=== PATIENT | female | born 1945 | race Caucasian/White ===

== ENCOUNTER → 2017-09-10 14:07 | Outpatient (POV) | payer MEDICARE, SELFPAY | DX: Z00.00 Encounter for general adult medical examination without abnormal findings (principal) ==

== ENCOUNTER → 2017-09-12 14:19 | Outpatient (CLI) | payer MEDICARE, SELFPAY ==
--- NOTE | 2017-09-12 14:28 | XR_ITS ---
XR chest 2V HISTORY: ITS.REASON: COUGH ORDERING PHYSICIAN: Sid Rodríguez MD PATIENT AGE: 72 years COMPARISON: None available FINDINGS: The cardiomediastinal silhouette and pulmonary vascularity are within normal limits. There is increased density in the region of the lingula best detected on the lateral view consistent with an area of pneumonia.. This borders the major fissure. There are degenerative changes of the thoracic spine with mild kyphosis. Postsurgical changes lumbar spine.. IMPRESSION: Patchy area of pneumonia within the lingula
== END ==
PROVIDERS: PCP Family Medicine; Visit Provider Family Medicine
DX: R05 Cough (principal)
CPT/HCPCS: 71046

== ENCOUNTER 2017-09-20 16:15 | Emergency (ER) | payer MEDICARE, SELFPAY ==
[2017-09-20 16:30] VITALS: BP 122/59; PULSE 94; RESP 18; TEMP 36.9; O2SAT 97; BMI 31.3
--- NOTE | 2017-09-20 17:35 | HMH.EDFALL ---
ED Disposition Clinical Impression: Scalp laceration Qualifiers: Encounter type: initial encounter Qualified Code(s): S01.01XA - Laceration without foreign body of scalp, initial encounter Disposition: Home, Self-Care Condition on Discharge: Fair Instructions: How to Prevent Falls Additional Instructions: take a shower tonight to get blood out of hair and then keep stitches dry for next 2 days. Stitches should fall out on their own Referrals: Sid Rodríguez MD [Primary Care Provider] - - Critical Care Critical Care Time: No Attestation: On , the high probability of a clinically significant, sudden or life threatening deterioration of the following system(s) required my full and direct attention, intervention and personal management. The time I documented below is in addition to time spent performing reported procedures but includes the following listed in this critical care notation. Medical Decision Making - Medical Records Medical records reviewed: Yes: I reviewed the patient's medical records. Vital Signs: 09/20/17 16:30 Temperature 98.4 F Temperature Source Oral Pulse Rate [Right Radial] 94 H Respiratory Rate 18 Blood Pressure [Right Arm] 122/59 Blood Pressure Mean [Right Arm] 80 Blood Pressure Source [Right Arm] Automatic Cuff Blood Pressure Position [Right Arm] Sitting 02 Sat by Pulse Oximetry 97 Oxygen Delivery Method Room Air Orders (Tests/Meds): ORDERS Category Date Time Status CT Request head Stat Cat Scan 09/20/17 16:[address] cervical spine wo con Stat Cat Scan 09/20/17 16:[address] head/brain wo con Routine Cat Scan 09/20/17 16:55 Ordered - Judah Inquiry Pt receiving controlled substance: No Judah was queried for this patient: No Fall HPI - General Chief Complaint: Fall Stated Complaint: AO Fell Lac to Back Right Head Mode of Arrival: Ambulatory Source of Information: Patient Limitations: No Limitations Description of Symptoms (Recalled from ER Triage Doc. by RN): FELL BACKWARDS INTO KITCHEN COUNTER - History of Present Illness HPI Narrative: Pt fell at home around 3PM and hit her head on the kitchen. No loc and no continuing pain but does have a small laceration on occipital area about 1 cm in length complaint: fall Onset (ago): hour(s) Fall from: standing Fall witnessed: no - Related Data Allergies Allergy/AdvReac Type Severity Reaction Status Date / Time dexamethasone [From DECADRON] Allergy Severe S-SWELLS-OR Unverified 08/05/17 15:18 AL/THROAT bacitracin Allergy Unknown I-RASH Unverified 08/05/17 15:18 [From Neosporin ([id number])] neomycin Allergy Unknown I-RASH Unverified 08/05/17 15:18 [From Neosporin ([id number])] Penicillins Allergy Unknown I-RASH Unverified 08/05/17 15:18 polymyxin B Allergy Unknown I-RASH Unverified 08/05/17 15:18 [From Neosporin ([id number])] [facility] History I have reviewed the patient's past medical history: Yes Medical History: Denies:: Cancer, Diabetes Mellitus Type 1, Diabetes Mellitus Type 2, Internal Pacemaker, MRSA Laterality Cases: Right: Arthroscopy Shoulder, Bilateral: Other Other Surgeries: No: Pacemaker Amputation: No - *Social History Smoking Status: Light tobacco smoker Tobacco Type: cigarettes Alcohol Intake: current Alcohol Intake Frequency:: a few times a month Substance Use Type: prescription drug Last Used Substance: hours (ago) - Psychiatric History Expresses thoughts of harming self/others: None Suicide Plan Description: No Plan ROS Obtained: Yes All systems reviewed & no additional complaints Physical Exam - General General appearance: alert - Head Head exam: normocephalic, normal inspection, other (small 1 cm laceration on occipital area on right side) - Eye Eye exam: Present: normal appearance, PERRL, EOMI - ENT ENT exam: Present: normal exam, normal oropharynx, mucous membranes moist, TM's normal bilaterally, normal
--- NOTE | 2017-09-20 17:38 | ED_ITS ---
ED Disposition Clinical Impression: Scalp laceration Qualifiers: Encounter type: initial encounter Qualified Code(s): S01.01XA - Laceration without foreign body of scalp, initial encounter Disposition: Home, Self-Care Condition on Discharge: Fair Instructions: How to Prevent Falls Additional Instructions: take a shower tonight to get blood out of hair and then keep stitches dry for next 2 days. Stitches should fall out on their own Referrals: Sid Rodríguez MD [Primary Care Provider] - - Critical Care Critical Care Time: No Attestation: On , the high probability of a clinically significant, sudden or life threatening deterioration of the following system(s) required my full and direct attention, intervention and personal management. The time I documented below is in addition to time spent performing reported procedures but includes the following listed in this critical care notation. Medical Decision Making - Medical Records Medical records reviewed: Yes: I reviewed the patient's medical records. Vital Signs: 09/20/17 16:30 Temperature 98.4 F Temperature Source Oral Pulse Rate [Right Radial] 94 H Respiratory Rate 18 Blood Pressure [Right Arm] 122/59 Blood Pressure Mean [Right Arm] 80 Blood Pressure Source [Right Arm] Automatic Cuff Blood Pressure Position [Right Arm] Sitting 02 Sat by Pulse Oximetry 97 Oxygen Delivery Method Room Air Orders (Tests/Meds): ORDERS Category Date Time Status CT Request head Stat Cat Scan 09/20/17 16:[address] cervical spine wo con Stat Cat Scan 09/20/17 16:[address] head/brain wo con Routine Cat Scan 09/20/17 16:55 Ordered - Judah Inquiry Pt receiving controlled substance: No Judah was queried for this patient: No Fall HPI - General Chief Complaint: Fall Stated Complaint: AO Fell Lac to Back Right Head Mode of Arrival: Ambulatory Source of Information: Patient Limitations: No Limitations Description of Symptoms (Recalled from ER Triage Doc. by RN): FELL BACKWARDS INTO KITCHEN COUNTER - History of Present Illness HPI Narrative: Pt fell at home around 3PM and hit her head on the kitchen. No loc and no continuing pain but does have a small laceration on occipital area about 1 cm in length complaint: fall Onset (ago): hour(s) Fall from: standing Fall witnessed: no - Related Data Allergies Allergy/AdvReac Type Severity Reaction Status Date / Time dexamethasone [From DECADRON] Allergy Severe S-SWELLS-OR Unverified 08/05/17 15: 18 AL/THROAT bacitracin Allergy Unknown I-RASH Unverified 08/05/17 15:18 [From Neosporin ([id number])] neomycin Allergy Unknown I-RASH Unverified 08/05/17 15:18 [From Neosporin ([id number])] Penicillins Allergy Unknown I-RASH Unverified 08/05/17 15:18 polymyxin B Allergy Unknown I-RASH Unverified 08/05/17 15:18 [From Neosporin ([id number])] [facility] History I have reviewed the patient's past medical history: Yes Medical History: Denies:: Cancer, Diabetes Mellitus Type 1, Diabetes Mellitus Type 2, Internal Pacemaker, MRSA Laterality Cases: Right: Arthroscopy Shoulder, Bilateral: Other Other Surgeries: No: Pacemaker Amputation: No - *Social History Smoking Status: Light tobacco smoker
[2017-09-20 17:53] VITALS: BP 142/64; PULSE 65; RESP 16; TEMP 36.9; O2SAT 98
== END 2017-09-20 17:54 | disposition home or self-care (01) ==
PROVIDERS: Emergency Provider General Practice; PCP Family Medicine
DX: S01.01XA Laceration without foreign body of scalp, initial encounter (principal); W17.89XA Other fall from one level to another, initial encounter; Y92.000 Kitchen of unspecified non-institutional (private) residence as the place of occurrence of the external cause
CPT/HCPCS: 99281

== ENCOUNTER → 2017-09-29 11:24 | Outpatient (CLI) | payer MEDICARE, SELFPAY ==
--- NOTE | 2017-09-29 11:40 | XR_ITS ---
XR chest 2V HISTORY: ITS.REASON: FU PNEUMONIA ORDERING PHYSICIAN: Sid Rodríguez MD PATIENT AGE: 72 years COMPARISON: 09/12/2017 FINDINGS: The cardiomediastinal silhouette and pulmonary vascularity are within normal limits. Patchy infiltrate once again noted in the lingula has shown some improvement. The remaining lungs are clear. Degenerative change thoracic spine. IMPRESSION: Improving lingular pneumonia
== END ==
PROVIDERS: PCP Family Medicine; Visit Provider Family Medicine
DX: Z87.01 Personal history of pneumonia (recurrent) (principal)
CPT/HCPCS: 71046

== ENCOUNTER → 2017-10-14 16:19 | Outpatient (REF) | payer MEDICARE, SELFPAY | LOC: LAB 16:19 | PROVIDERS: Visit Provider Podiatrist | DX: B35.1 Tinea unguium (principal) | CPT/HCPCS: 87220 ==

== ENCOUNTER → 2017-12-01 13:35 | Outpatient (POV) | payer MEDICARE, SELFPAY | PROVIDERS: Visit Provider Physician Assistant | DX: Z00.00 Encounter for general adult medical examination without abnormal findings (principal) ==

== ENCOUNTER → 2017-12-24 13:48 | Outpatient (POV) | payer MEDICARE, SELFPAY | PROVIDERS: PCP Family Medicine | DX: Z00.00 Encounter for general adult medical examination without abnormal findings (principal) ==

== ENCOUNTER → 2017-12-24 15:14 | Outpatient (CLI) | payer MEDICARE, SELFPAY ==
--- NOTE | 2017-12-24 15:18 | CT_ITS ---
CT lung screening EXAM: CT LUNG LOW DOSE WO CONTRAST COMPARISON: 08/01/2016 HISTORY: ITS.REASON: NICTOINE DEPENDENCE ORDERING PHYSICIAN: King Del Toro MD PATIENT AGE: 72 years TECHNIQUE: The exam was performed on a GE Light Speed [address] scanner using 2.90 mGy CTDI. A low dose helical CT CHEST was performed on a multi-detector scanner. All CT scans at the facility use one or more dose reduction, viz: automated exposure control; ma/kV adjustment per patient size (including targeted exams where dose is matched to indication; i.e. head); or iterative reconstruction technique. The LDCT was performed in a facility that meets the criteria for the screening program. Data regarding this exam was submitted to ACR which is an approved registry. The order for this exam indicates that it came as a result of a lung cancer screening counseling shard decision-making visit that included all the elements required of such a visit including smoking cessation. The radiologist interpreting this exam meets the CMS criteria for the LDCT lung cancer screening program. The exam is reported using the Lung-RADS classification scale and reported to the ACR registry. NOTE: This study was performed for the specific purposes of lung cancer screening and is not an alternative to diagnostic chest CT. RADIATION DOSE: CTDI vol(CT dose Index-volume) = 2.90mG DLP (Dose Length Product) = 96.27 mGcm FINDINGS: There are few calcified granulomas present. No suspicious or indeterminate nodules evident. LUNG PARENCHYMA Emphysema: Mild centrilobular emphysematous changes Airways disease: Hyperinflation with attenuation of peripheral pulmonary vessels consistent with obstructive chronic bronchitis Fibrosis: Minimal scattered fibrotic change in the lung bases OTHER ANATOMIC REGIONS Lymph Nodes: No enlarged lymph nodes evident. Scattered small nodes are present in the mediastinum and nicola Pleura: Unremarkable Cardiac: Unremarkable OTHER FINDINGS: No other pertinent findings evident IMPRESSION: 1. Lung RADS Category: 2 benign 2. Other findings: Obstructive chronic bronchitis with mild emphysematous change RECOMMENDATIONS: 99-mahdi-QIID screening
== END ==
PROVIDERS: PCP Family Medicine; Visit Provider Internal Medicine
DX: Z87.891 Personal history of nicotine dependence (principal); Z12.2 Encounter for screening for malignant neoplasm of respiratory organs

== ENCOUNTER → 2017-12-30 14:38 | Outpatient (POV) | payer MEDICARE, SELFPAY | PROVIDERS: PCP Family Medicine; Visit Provider Internal Medicine | DX: Z00.00 Encounter for general adult medical examination without abnormal findings (principal) ==

== ENCOUNTER → 2018-01-05 13:31 | Outpatient (POV) | payer MEDICARE, SELFPAY | PROVIDERS: PCP Family Medicine; Visit Provider Physician Assistant | DX: Z00.00 Encounter for general adult medical examination without abnormal findings (principal) ==

== ENCOUNTER → 2018-02-27 09:15 | Outpatient (CLI) | payer MEDICARE, SELFPAY ==
--- NOTE | 2018-02-27 09:17 | MM_ITS ---
MM Dig screening mamm BI w/CAD CAD Screening COMPARISON: Digital mammograms 02/13/2016 and additional views left breast 02/27/2016 INDICATION: There is no personal or family history of breast cancer TECHNIQUE: Standard CC and MLO images were obtained. R2 CAD reviewed. FINDINGS: Moderate scattered fiber glandular densities are seen throughout both breasts slightly asymmetrically increased fibroglandular densities upper outer quadrant right breast and this was noted previously as well. There are few benign-appearing calcination is in each breast. There is a mole marker each breast. There are 2 stable tiny nodular densities near the axilla tail right breast likely a low-lying nodes. There is no suspicious lesion and no suspicious microcalcifications. IMPRESSION: Fibrofatty parenchyma with no suspicious lesion seen BI-RADS Category: 2 Benign Finding(s) RECOMMENDED FOLLOW-UP: 1YR - 1 YEAR FOLLOW-UP (A letter has been sent to the patient regarding results of the study.)
== END ==
PROVIDERS: PCP Family Medicine; Visit Provider Family Medicine
DX: Z12.31 Encounter for screening mammogram for malignant neoplasm of breast (principal)
CPT/HCPCS: 77067

== ENCOUNTER → 2018-04-29 13:16 | Outpatient (POV) | payer MEDICARE, SELFPAY | PROVIDERS: PCP Family Medicine | DX: Z00.00 Encounter for general adult medical examination without abnormal findings (principal) ==

== ENCOUNTER → 2018-05-22 14:19 | Outpatient (CLI) | payer MEDICARE, SELFPAY ==
--- NOTE | 2018-05-22 14:41 | XR_ITS ---
XR chest 2V HISTORY: ITS.REASON: COUGH ORDERING PHYSICIAN: Sid Rodríguez MD PATIENT AGE: 72 years COMPARISON: 09/29/2017 FINDINGS: The cardiomediastinal silhouette and pulmonary vascularity are within normal limits. The lungs are clear without infiltrates, suspicious nodules, or pleural effusions. Postsurgical changes present involving the lower thoracic and upper lumbar spine with interpedicular screws at T11 T12 L1 and L2 with prior to plasty at T11. IMPRESSION: No acute cardiac or pulmonary findings
== END ==
PROVIDERS: PCP Family Medicine; Visit Provider Family Medicine
DX: R05 Cough (principal)
CPT/HCPCS: 71046

== ENCOUNTER → 2018-05-28 15:33 | Outpatient (CLI) | payer MEDICARE, SELFPAY ==
--- NOTE | 2018-05-28 15:38 | XR_ITS ---
XR clavicle RT Ordering Physician: Deana Han MD Patient Age: 72 years: Female HISTORY: ITS.REASON: CONTUSION OF RIGHT CLAVICLE Pain at midshaft right clavicle TECHNIQUE: Right clavicle AP and angled 15 degrees angled view. COMPARISON :May 22, 2018 chest x-ray Right shoulder from 10/28/2013 FINDINGS The right clavicle is intact with no acute fracture. Specifically the midportion the clavicle is well visualized and appears normal. The distal clavicle appears intact as does the AC joint. The medial head clavicle at the upper normal position as seen on the 15 degree angled view but it appears satisfactory on the straight AP view. There is prominent roughening and osseous irregularity seen at the greater tuberosity. This likely reflects degenerative changes here- possibly reflects insertion erosions, or sequela of of old trauma and/or impingement. I believe these were evident on a chest CT from April 2015 which includes right shoulder. However findings are certainly progressed since a right shoulder study from October 2013. I suspect there there was trauma involving greater tuberosity and October 2013 which may have been initiated these changes. Also appear to be some mild hypertrophic bone features along inferior aspect of the acromion. Glenohumeral relationships normal. IMPRESSION: ...... 1. Right clavicle intact. No fracture . AC joint unremarkable. 2.. Degenerative changes of the shoulder as above in text . Specifically note Prominent osseous irregularity & erosive changes at cap greater tuberosity (believe these were at least in part present on 2014 CT chest which includes right shoulder, but but have developed since October 2013, trauma at right shoulder x-ray)
== END ==
PROVIDERS: PCP Family Medicine; Visit Provider Family Medicine
DX: S40.011A Contusion of right shoulder, initial encounter (principal)
CPT/HCPCS: 73000

== ENCOUNTER → 2018-06-19 08:15 | Outpatient (CLI) | payer MEDICARE, SELFPAY ==
--- NOTE | 2018-06-19 | NVE_ITS ---
Venous Exam Indications: 782.3 Edema. 786.05 Shortness of breath. IMPRESSIONS 1. There is no evidence of significant Reflux. 2. No evidence of deep or superficial vein thrombosis involving the left lower extremity 3. No evidence of deep or superficial vein thrombosis involving the right lower extremity Complete lower extremity venous duplex evaluation. Doppler flow study including spectral analysis, color and bartlett scale imaging. Location: Vascular laboratory. Patient status: Outpatient. CRITICAL FINDINGS - Reported to: ARCHIE - Read back and verified. - 06/19/18899 - NONE Tables: Venous flow and imaging: + +-------+ + Location Overall Flow properties + +-------+ + Right common femoral Patent Normal phasicity; spontaneous; normal augmentation; compressible + +-------+ + Right saphenofemoral junction Patent Compressible + +-------+ + Right profunda femoral Patent Compressible + +-------+ + Right femoral Patent Normal phasicity; spontaneous; normal augmentation; compressible; no reflux + +-------+ + Right greater saphenous Patent Normal phasicity; spontaneous; normal augmentation; compressible + +-------+ + Right popliteal Patent Normal phasicity; spontaneous; normal augmentation; compressible + +-------+ + Right posterior tibial Patent Compressible + +-------+ + Right peroneal Patent Compressible + +-------+ + Right gastrocnemius Patent Compressible + +-------+ + Right soleal Patent Compressible + +-------+ + Left common femoral Patent Normal phasicity; spontaneous; normal augmentation; compressible + +-------+ + Left saphenofemoral junction Patent Compressible + +-------+ + Left profunda femoral Patent Compressible + +-------+ + Left femoral Patent Normal phasicity; spontaneous; normal augmentation; compressible + +-------+ + Left greater saphenous Patent Normal phasicity; spontaneous; normal augmentatio
== END ==
PROVIDERS: PCP Family Medicine; Visit Provider Family Medicine
DX: R60.9 Edema, unspecified (principal); M79.605 Pain in left leg
CPT/HCPCS: 93970

== ENCOUNTER → 2018-07-14 13:37 | Outpatient (POV) | payer MEDICARE, SELFPAY | PROVIDERS: Visit Provider Internal Medicine | DX: Z00.00 Encounter for general adult medical examination without abnormal findings (principal) ==

== ENCOUNTER → 2018-09-30 14:25 | Outpatient (POV) | payer MEDICARE, SELFPAY | DX: Z00.00 Encounter for general adult medical examination without abnormal findings (principal) ==

== ENCOUNTER → 2018-10-22 08:17 | Outpatient (CLI) | payer MEDICARE, SELFPAY ==
--- NOTE | 2018-10-22 | CA_ITS ---
PROCEDURE: 2-D M-mode and color Doppler study INDICATIONS FOR THE TEST: Chest pain COPD Heart Murmur Tobacco SmokingX Palpitations Fatigue Syncope EdemaX Hypertension Diabetes Mellitus Rheumatic Fever SOBXDOEXObesityXHyperlipidemia Family History HD Additional History TDS PLAX/PSAX VIEWS POOR ACOUSTIC WINDOWS PATIENT INFORMATION HEIGHT: 65 WEIGHT:209 GENDER: Female B/P:144/66 2-D/M-MODE INTERPRETATION: 2-D MEASUREMENTS OBSERVED VALUES IN CMS Right Ventricular Dimension (RVDd) 1.0 Interventricular Septum (Thickness)(IVsd) .8 Left Ventricular Internal Dimensions(LVIDd) 5.8 Left Ventricular Posterior Wall (Thickness)(LVPWd) .9 Aortic Root 2.6 Aortic Cusp Separation 1.7 Left Atrial Dimensions (LAD) 2.9 2D 1. Left atrium is mildly enlarged, left ventricle is normal size, hyperdynamic left ventricular systolic function, visually estimated ejection fraction over 65% with no regional wall motion abnormality, endocardial surfaces are poorly visualized. 2. The right atrium and right ventricle are normal size and contractility. 3. The aortic valve is thickened and calcified leaflet continue to display mobility. 4. The mitral and tricuspid valve leaflets are minimally thickened. 5. The pulmonic valve is poorly visualized. 6. No significant pericardial effusion noted. DOPPLER INTERROGATION: Doppler interrogation of the aortic, mitral and tricuspid valvular presence of mild mitral and tricuspid regurgitation, tricuspid regurgitation jet velocity is inadequate for calculation of the right ventricular systolic pressure, diastolic parameters are inconclusive. CONCLUSION: 1. Mildly enlarged left atrium, normal left ventricular size, hyperdynamic left ventricular systolic function, visually estimated ejection fraction over 65% with no regional wall motion abnormality, diastolic parameters are inconclusive. 2. Mild mitral and tricuspid regurgitation 3. No significant pericardial effusion noted.
== END ==
PROVIDERS: PCP Family Medicine; Visit Provider Internal Medicine
DX: R60.0 Localized edema (principal); G47.33 Obstructive sleep apnea (adult) (pediatric)
CPT/HCPCS: 93306

== ENCOUNTER → 2018-10-29 13:44 | Outpatient (CLI) | payer MEDICARE, SELFPAY ==
--- NOTE | 2018-10-29 | NVE_ITS ---
Venous Exam Indications: 729.5 Pain in limb. IMPRESSIONS 1. There is no evidence of significant Reflux. 2. No evidence of deep or superficial vein thrombosis involving the right lower extremity Right lower extremity venous duplex evaluation. Doppler flow study including spectral analysis, color and bartlett scale imaging. Location: Vascular laboratory. Patient status: Outpatient. Tables: Venous flow and imaging: + +-------+ + Location Overall Flow properties + +-------+ + Right common femoral Patent Normal phasicity; spontaneous; normal augmentation; compressible + +-------+ + Right saphenofemoral junction Patent Compressible + +-------+ + Right profunda femoral Patent Compressible + +-------+ + Right femoral Patent Normal phasicity; spontaneous; normal augmentation; compressible + +-------+ + Right greater saphenous Patent Normal phasicity; spontaneous; normal augmentation; compressible + +-------+ + Right popliteal Patent Normal phasicity; spontaneous; normal augmentation; compressible + +-------+ + Right posterior tibial Patent Compressible + +-------+ + Right peroneal Patent Compressible + +-------+ + Right gastrocnemius Patent Compressible + +-------+ + Right soleal Patent Compressible + +-------+ + (Report amended ) Electronically signed by: Chris Patton [id number]
== END ==
PROVIDERS: PCP Family Medicine; Visit Provider Podiatrist
DX: M79.661 Pain in right lower leg (principal)
CPT/HCPCS: 93971

== ENCOUNTER 2018-11-11 13:00 | Outpatient (RCR) | payer MEDICARE, SELFPAY ==
--- NOTE | 2018-09-16 15:47 | HMH.PTOPWND ---
Rehab Outpt Wound Evaluation Rehab OP Wound Evaluation Start: 09/16/18 15:34 Freq: Status: Active Protocol: Document 09/16/18 15:35 PHOLOUISE (Rec: 09/16/18 15:47 PHORNE [id number]) Electronically Signed By Rubens Urena, PT 09/16/18 15:35 Subjective/History History History Pt is a 73 yowf who presents with c/o pain and swelling in tawanna LE x ~ 6 mos S/P lumbar fusion, possibly L4-5. She reports less swelling and pain over the past 2-3 wks as she has bronchitis and has not been on her feet much recently . She has hx of 3 back surgeries at different levels, Right RCT repair, HTN, and COPD. She also reports increasing neuropathic pain that appears unrelated to the edema. Lymphedema Eval Classification of Lymphedema Secondary Lymphedema Yes Stemmer's sign Stemmer's Sign no Stage of Lymphedema Lymphedema stages Stage 0 (subjective c/o heaviness and aching) Skin Changes Dry Skin Yes Redness Yes Pain Scale Pain Scale (0-10) 3 Affected Extremities Areas Affected by Lymphedema/Edema Right Lower Extremity Left Lower Extremity Manual Lymphatic Drainage Treatment Area MLD Treatment Area Right Lower Extremity Left Lower Extremity Wound Problems/Impairments Impairments Problems/Impairmments Palpation Tenderness Increased Edema Lymphedema Present Subjective C/O Pain Impaired Self Care/Self Management Prognosis Rehab Potential Good Clinical Impression Consistent with Diagnosis Yes Short Term Goals Number of Weeks 4 Decreased Palpation Tenderness Yes: to min Decrease Subjective C/O Pain Yes: 2/10 Patient to Understand Lymphedema Yes Treatment and Exercises Medication Aide Goals Number of Weeks 8 Decreased Palpation Tenderness Yes: to none Decrease Subjective C/O Pain Yes: 08/27 Patient to be Ind w/ HEP Yes Patient to Adhere Lymphedema Precautions Yes Outpatient Therapy Plan of Care Treatment Plan May Include Therapeutic Exercise Including Home Yes Exercise Program Manual Therapy Techniques Yes Neuromuscular Re-education
== END 2018-11-11 13:05 | disposition home or self-care (01) ==
LOC: PT 13:00
PROVIDERS: Visit Provider Podiatrist
DX: R60.0 Localized edema (principal)
CPT/HCPCS: 97016; 97140; 97162; 97760

== ENCOUNTER → 2018-11-24 09:23 | Outpatient (POV) | payer MEDICARE, SELFPAY | PROVIDERS: Visit Provider Internal Medicine | DX: Z00.00 Encounter for general adult medical examination without abnormal findings (principal) ==

== ENCOUNTER → 2019-02-10 13:15 | Outpatient (POV) | payer MEDICARE, SELFPAY | DX: Z00.00 Encounter for general adult medical examination without abnormal findings (principal) ==

== ENCOUNTER → 2019-03-01 15:30 | Outpatient (CLI) | payer MEDICARE, SELFPAY ==
--- NOTE | 2019-03-01 15:35 | XR_ITS ---
XR DEXA axial skeleton HISTORY: ITS.REASON: POST MENOPAUSAL ORDERING PHYSICIAN: Courtney Graf MD PATIENT AGE: 73 years COMPARISON: 02/13/2016 FINDINGS: The BMD measured at the Left femoral neck is 0.800 g/cm squared with a T score of -1.7. This is considered Osteopenic according to the World Health Organization criteria. Fracture risk is Moderate. Treatment is advised. IMPRESSION: Osteopenia with moderate fracture risk. Suggest follow-up exam February 2021
--- NOTE | 2019-03-01 15:35 | MM_ITS ---
MM Dig screening mamm BI w/CAD CAD Screening COMPARISON: Digital mammograms with CAD 02/27/2018 and 02/13/2016 INDICATION: There is no personal or family history of breast cancer TECHNIQUE: Standard CC and MLO images were obtained. R2 CAD reviewed. FINDINGS: Mild to moderate scattered fibroglandular densities are seen throughout both breasts. There are few scattered benign-appearing microcalcifications in each breast. There is a stable nodular density axilla tail right breast. There is no suspicious lesion and there are no suspicious microcalcifications. IMPRESSION: Fibrofatty parenchyma with no suspicious lesion seen BI-RADS Category: 2 Benign Finding(s) RECOMMENDED FOLLOW-UP: 1YR - 1 YEAR FOLLOW-UP (A letter has been sent to the patient regarding results of the study.)
== END ==
PROVIDERS: PCP Family Medicine; Visit Provider Emergency Medicine
DX: Z12.31 Encounter for screening mammogram for malignant neoplasm of breast (principal); Z78.0 Asymptomatic menopausal state; Z13.820 Encounter for screening for osteoporosis; Z00.01 Encounter for general adult medical examination with abnormal findings
CPT/HCPCS: 77067; 77080

== ENCOUNTER 2019-03-31 13:00 | Outpatient (RCR) | payer MEDICARE, SELFPAY ==
--- NOTE | 2019-02-22 08:36 | HMH.PTOPWND ---
Rehab Outpt Wound Evaluation Rehab OP Wound Evaluation Start: 02/22/19 08:30 Freq: Status: Active Protocol: Document 02/22/19 08:30 PHOLOUISE (Rec: 02/22/19 08:36 PHORNE [id number]) Electronically Signed By Rubens Urena, BOO 02/22/19 08:30 Subjective/History History History Pt is a 73 yowf who presents with c/o B LE edema, right > left, x 1-2 mos this episode. She reports insidious onset of symptoms at this time. She also reports tenderness to palpation in B lower legs, worse in the gaitor area. She presents this date with mild erythema in B shins and mild edema worse at the ankles. She reports no numbness, but some pain in the right LE, 4/10 at worst. PMH: Lumbar surgery x 3, right RCT repair, COPD, OA. Subjective Subjective Currently no pain, but 4/10 at worst in the right LE intermittently. Lymphedema Eval Classification of Lymphedema Secondary Lymphedema Yes Stemmer's sign Stemmer's Sign no Stage of Lymphedema Lymphedema stages Stage I (Pitting edema, reduces w/ elevation, no fibrosis) Skin Changes Dry Skin Yes Taut, Shiny Skin Yes Redness Yes Discoloration of Skin Yes Pain Scale Pain Scale (0-10) 4 Affected Extremities Areas Affected by Lymphedema/Edema Right Lower Extremity,Left Lower Extremity Manual Lymphatic Drainage Treatment Area MLD Treatment Area Right Lower Extremity,Left Lower Extremity Wound Problems/Impairments Impairments Problems/Impairmments Palpation Tenderness,Impaired Gait Pattern,Impaired Walking, Increased Edema,Lymphedema Present,Subjective C/O Pain, Impaired Self Care/Self Management Prognosis Rehab Potential Good Clinical Impression Consistent with Diagnosis Yes Short Term Goals Number of Weeks 4 Decreased Palpation Tenderness Yes: to min Increase Ability to Walk Yes Decrease Subjective C/O Pain Yes: 3/10 Patient to Understand Lymphedema Yes Treatment and Exercises Decrease Girth Measurme
== END 2019-03-31 13:05 | disposition home or self-care (01) ==
LOC: PT 13:00
PROVIDERS: Visit Provider Podiatrist
DX: R60.0 Localized edema (principal)
CPT/HCPCS: 97140; 97162

== ENCOUNTER → 2019-04-12 13:54 | Outpatient (CLI) | payer MEDICARE, SELFPAY ==
--- NOTE | 2019-04-12 14:00 | CT_ITS ---
PROCEDURE: CT LUNG SCREENING CLINICAL INDICATION: HX TOBACCO USE Forty-two pack-year smoking history, asymptomatic for lung cancer COMPARISON: LUNGSCREEN CT lung screening from 12/24/2017 TECHNIQUE: The exam was performed on a GE [employer] Speed [address] scanner using 2.90 mGy CTDI. A low dose helical CT CHEST was performed on a multi-detector scanner. All CT scans at the facility use one or more dose reduction, viz: automated exposure control, ma/kV adjustment per patient size (including targeted exams where dose is matched to indication, i.e. head), or iterative reconstruction technique. The LDCT was performed in a facility that meets the criteria for the screening program. Data regarding this exam was submitted to ACR which is an approved registry. The order for this exam indicates that it came as a result of a lung cancer screening counseling shard decision-making visit that included all the elements required of such a visit including smoking cessation. The radiologist interpreting this exam meets the CMS criteria for the LDCT lung cancer screening program. The exam is reported using the Lung-RADS classification scale and reported to the ACR registry. NOTE: This study was performed for the specific purposes of lung cancer screening and is not an alternative to diagnostic chest CT. RADIATION DOSE: CTDI vol(CT dose Index-volume) = 2.90mG DLP (Dose Length Product) = 96.27 mGcm FINDINGS: Calcified granuloma right lower lobe medially. Mild atelectatic or fibrotic change in the lingula. Small mediastinal nodes stable. OTHER FINDINGS: Small hiatal hernia. Postsurgical changes thoracic spine. Prior kyphoplasty at T12. IMPRESSION: Lung rads category 2 benign findings Recommend 12 month LDCT follow-up Dictated by: Chris Patton MD 04/18/2019 11:48 Signed by: <Electronically signed by Chris Patton MD in [place]> 04/18/2019 11:48
== END ==
PROVIDERS: PCP Family Medicine; Visit Provider Internal Medicine
DX: Z87.891 Personal history of nicotine dependence (principal); Z12.2 Encounter for screening for malignant neoplasm of respiratory organs

== ENCOUNTER → 2019-05-06 13:15 | Outpatient (CLI) | payer MEDICARE, SELFPAY ==
--- NOTE | 2019-05-06 13:19 | XR_ITS ---
PROCEDURE: XR CHEST 2V CLINICAL HISTORY: COUGH COMPARISON: [facility] CT CHEST W/O CONTRAST from 04/21/2015 CXR2V XR chest 2V from 09/12/2017 CXR2V XR chest 2V from 09/29/2017 CXR2V XR chest 2V from 05/22/2018 FINDINGS: The cardiomediastinal silhouette and pulmonary vascularity are within normal limits. Focal parenchymal increased density is present in the left lower lobe along the apex of the left heart and may be related to an area of atelectasis or improved commode fibrosis.. This is not readily apparent on the previous exam. Cortical regularity involves the greater tuberosity of the right humerus which may be seen with rotator cuff disease. Inter pedicular screws with stabilizing rods are present in the lower thoracic spine. Prior kyphoplasty at T11 with degenerative changes of the midthoracic spine and mild thoracic kyphosis IMPRESSION: New 2 cm opacity in the left lower lobe which could be due to an area of atelectasis or fibrosis versus developing nodule. This is not readily apparent on 05/22/2018. CT chest may further characterize. Dictated by: Chris Patton MD 05/06/2019 13:35 Electronically signed by Chris Patton MD in [place] 05/06/2019 13:35
== END ==
PROVIDERS: PCP Family Medicine; Visit Provider Family Medicine
DX: R05 Cough (principal)
CPT/HCPCS: 71046

== ENCOUNTER → 2019-05-11 14:59 | Outpatient (POV) | payer MEDICARE, SELFPAY | PROVIDERS: Visit Provider Internal Medicine | DX: Z00.00 Encounter for general adult medical examination without abnormal findings (principal) ==

== ENCOUNTER → 2019-05-20 12:56 | Outpatient (CLI) | payer MEDICARE, SELFPAY ==
--- NOTE | 2019-05-20 12:59 | US_ITS ---
APPROVED REPORT Exam Type: Lower Extremity Segmental Pressures Creative Intern: Nafisa Garcia CRT Indications Claudication: Risk Factors Hypertension Pressures/Indices Right Indices Left Indices Brachial 128.00 mmHg Brachial 124.00 mmHg Low Thigh 133.00 mmHg 1.04 Low Thigh 134.00 mmHg 1.05 Calf 153.00 mmHg 1.20 Calf 140.00 mmHg 1.09 Ankle(PT) 156.00 mmHg 1.22 Ankle(PT) 145.00 mmHg 1.13 Ankle(DP) 139.00 mmHg 1.09 Ankle(DP) 146.00 mmHg 1.14 Digit 81.00 mmHg 0.63 Digit 108.00 mmHg 0.84 Findings R OLGA LIDIA 1.2 L OLGA LIDIA 1.1 NORMAL PULSES NORMAL WAVEFORMS Conclusion No evidence significant arterial disease throughout the right and left lower extremities as evidenced by normal resting PVR waveforms and normal resting indices. Electronically signed by : Chris Patton MD 05/24/2019 19:33:05
--- NOTE | 2019-05-20 14:07 | CT_ITS ---
PROCEDURE: CT CHEST W CON CLINICAL HISTORY: PULMONARY NODULE COMPARISON: 04/12/2019. TECHNIQUE: Axial images obtained with sagittal and coronal reformats. All CT scans at the facility use one or more dose reduction, viz: automated exposure control, ma/kV adjustment per patient size (including targeted exams where dose is matched to indication, i.e. head), or iterative reconstruction technique. FINDINGS: Airway structures are patent and there is no pleural effusion or pneumothorax. There are stable punctate benign calcified granulomas at the medial base of the right upper lobe and the right lower lobe. The remainder of the lung agrawal are clear except for some strands of increased density in the lingula, which are stable. There are some small coronary and aortic arch calcified plaques. Heart size is normal. Mediastinal structures and hilar areas are unremarkable. Visualized portions of the upper abdominal structures are unremarkable. IMPRESSION: Stable benign right lung calcified granulomas. No further follow-up is necessary. Area of scarring or atelectasis in the lingula. Dictated by: Bigg El 05/20/2019 15:42 Electronically signed by Bigg El in [place] 05/20/2019 15:42
[2019-05-20 14:26] LABS: Blood Urea Nitrogen 15 mg/dL (7-18); Creatinine,Serum 0.79 mg/dL (0.55-1.02); Estimated Glomerular Filt Rate 71 ml/min (>60); GFR (African American) 86 ML/MIN (>60)
== END ==
PROVIDERS: PCP Family Medicine; Referring Provider Podiatrist; Visit Provider Family Medicine
DX: R09.89 Other specified symptoms and signs involving the circulatory and respiratory systems (principal); R91.1 Solitary pulmonary nodule
CPT/HCPCS: 36415; 71260; 82565; 84520; 93923; Q9967

== ENCOUNTER → 2019-06-16 13:41 | Outpatient (POV) | payer MEDICARE, SELFPAY | DX: Z00.00 Encounter for general adult medical examination without abnormal findings (principal) ==

== ENCOUNTER → 2019-07-09 13:25 | Outpatient (CLI) | payer MEDICARE, SELFPAY ==
--- NOTE | 2019-07-09 13:30 | XR_ITS ---
PROCEDURE: XR CHEST 2V CLINICAL HISTORY: COUGH Cough and congestion, shortness of breath, former smoker COMPARISON: CXR2V XR chest 2V from 09/29/2017 CXR2V XR chest 2V from 05/22/2018 XR CHEST 2V from 05/06/2019 CT CHEST W CON from 05/20/2019 FINDINGS: The cardiomediastinal silhouette and pulmonary vascularity are within normal limits. Parenchymal opacity noted in the left lower chest adjacent to the cardiac apex is once again noted but is somewhat less apparent. The remaining lungs are clear. Degenerative and postsurgical changes of the thoracic and upper lumbar spine. Prior vertebroplasty T11 IMPRESSION: Improvement in and lingular atelectasis Dictated by: Chris Patton MD 07/09/2019 15:09 Electronically signed by Chris Patton MD in [place] 07/09/2019 15:09
== END ==
PROVIDERS: PCP Family Medicine; Visit Provider Family Medicine
DX: R05 Cough (principal)
CPT/HCPCS: 71046

== ENCOUNTER → 2019-07-14 14:05 | Outpatient (POV) | payer MEDICARE, SELFPAY | DX: Z00.00 Encounter for general adult medical examination without abnormal findings (principal) ==

== ENCOUNTER → 2019-08-25 15:08 | Outpatient (CLI) | payer MEDICARE, SELFPAY ==
--- NOTE | 2019-08-25 15:16 | XR_ITS ---
PROCEDURE: XR FOOT WT BEARING LT 3V CLINICAL INDICATION: comparison views COMPARISON: No exams were available for comparison FINDINGS: No fracture or dislocation. No lytic or blastic change. There is normal mineralization. The joint spaces are well-preserved. No significant degenerative/arthritic changes. No erosive changes evident. Other findings:There is mild pes planus and there are minimal hypertrophic changes of the navicular IMPRESSION: Mild pes planus Dictated by: Chris Patton MD 08/25/2019 17:51 Electronically signed by Chris Patton MD in [place] 08/25/2019 17:51
--- NOTE | 2019-08-25 15:16 | XR_ITS ---
PROCEDURE: XR FOOT WT BEARING RT 3V CLINICAL INDICATION: right foot pain COMPARISON: XR FOOT WT BEARING LT 3V from 08/25/2019 FINDINGS: No fracture or dislocation. No lytic or blastic change. There is normal mineralization. Minimal osteoarthritic changes are present at the 1st metatarsophalangeal joint. There is mild pes planus and there is a small calcaneal spur Other findings:None. IMPRESSION: Pes planus with calcaneal spur and mild osteoarthritis of the 1st MTP joint Dictated by: Chris Patton MD 08/25/2019 17:52 Electronically signed by Chrsi Patton MD in [place] 08/25/2019 17:52
== END ==
PROVIDERS: PCP Family Medicine; Visit Provider Nurse Practitioner
DX: M72.2 Plantar fascial fibromatosis (principal)
CPT/HCPCS: 73630

== ENCOUNTER → 2019-10-23 11:16 | Outpatient (CLI) | payer MEDICARE, SELFPAY ==
--- NOTE | 2019-10-23 11:52 | XR_ITS ---
PROCEDURE: XR CHEST 2V Patient Age:74Y CLINICAL HISTORY: COUGH prior smoker COMPARISON: CXR2V XR chest 2V from 05/22/2018 XR CHEST 2V from 05/06/2019 CT CHEST W CON from 05/20/2019 XR CHEST 2V from 07/09/2019 FINDINGS: PA and lateral chest performed: Lungs are well expanded and clear with nothing definitely acute and no significant new findings compared to June 2019 CXR. Of there is mild hyperexpansion and mild chronic changes reflecting history of smoking. However there is no focal pneumonia. No mass lesion evident. Chest wall in T-spine appear stable, again noting posterior fusion at thoracolumbar junction,. Also note density related to previous vertebroplasty at lower thoracic vertebra believe the T11. Anterior marginal osteophytes throughout the T-spine. Heart normal size cardiomediastinal silhouette and pulmonary vascularity are within normal limits. The lungs are clear without infiltrates, suspicious nodules, or pleural effusions. No acute bony abnormalities.. Roughening cap of the right greater tuberosity again noted. IMPRESSION: Nothing definitely acute. Lungs appear clear. Mild hyperexpansion, mild chronic changes again noted Postsurgical changes/fusion thoracolumbar junction region the again noted Dictated by: Kavon Rose MD 10/23/2019 21:48 Electronically signed by Kavon Rose MD in [place] 10/23/2019 21:48
== END ==
PROVIDERS: PCP Family Medicine; Referring Provider Family Medicine; Visit Provider Family Medicine
DX: R05 Cough (principal); J06.9 Acute upper respiratory infection, unspecified
CPT/HCPCS: 71046

== ENCOUNTER → 2020-05-19 15:18 | Outpatient (CLI) | payer MEDICARE, SELFPAY ==
--- NOTE | 2020-05-19 15:23 | MM_ITS ---
PROCEDURE: MM DIG SCREENING MAMM BI W/CAD Referring Doctor: Sid Rodríguez Patient Age:74Y CLINICAL INDICATION: SCREENING 74-year-old. No hormones, no new complaints, patient has had 2 back surgeries of causing difficulty with positioning for MLO views COMPARISON: MG DMDXUR DIG MAMM-DX UNILATERAL-RT from 12/16/2012 MG DMSB DIG MAMM-SCREEN [place]ER[place] from 03/30/2013 MG DMSB DIG MAMM-SCREEN [place]ER[place] from 01/27/2015 MG DMSB DIG MAMM-SCREEN [place] from 02/13/2016 MG DMDXUAVL DIG MAMM-DX UNI ADD VIEWS-LT from 02/27/2016 MG SCBI MM Dig screening mamm BI w/CAD from 02/27/2018 MG DIG MAMM-SCREEN [place]ER[place] from 03/01/2019 TECHNIQUE: Standard CC and MLO images were obtained. R2 CAD reviewed. Bilateral digital breast tomosynthesis included. FINDINGS: Mild asymmetry with moderate residual fibroglandular elements extending from behind the nipple mainly towards upper-outer quadrant bilaterally. No dominant mass nor suspicious calcifications either breast. CAD computer review highlights no unique new areas of concern mole markers bilaterally Right breast: No new areas of significant concern. Again note fairly scattered likely small secretory calcifications lateral to the retroareolar region but these have not changed significantly since previous studies. No significant change since 2018 with only very slow progression a over past 7 years. These could be followed the Left breast: No new areas of significant concern. Small area of density at the central breast on CC view has been seen before and seems to dissipate on tomosynthesis image set. IMPRESSION: No significant new findings. .. Stable mammogram.. Stable mild asymmetry Bilateral follow-up 1 year recommended BI-RAD Category: 2 Benign Finding(s) FOLLOW-UP: 1YR 1 Year Follow-up (A letter has been sent to the patient regarding results of the study.) Dictated by: Kavon Rose MD 05/20/2020 08:16 Kavon Rose MD in [place] 05/20/2020 08:16
== END ==
PROVIDERS: PCP Family Medicine; Visit Provider Family Medicine
DX: Z12.31 Encounter for screening mammogram for malignant neoplasm of breast (principal)
CPT/HCPCS: 77063; 77067

== ENCOUNTER → 2020-06-06 11:56 | Outpatient (CLI) | payer MEDICARE, SELFPAY ==
--- NOTE | 2020-06-06 12:06 | XR_ITS ---
PROCEDURE: XR CHEST PORTABLE CLINICAL HISTORY: COVID OUTPATIENT TESTING Former smoker COMPARISON: CR XR CHEST 2V from 05/06/[address] CHEST W CON from 05/20/2019 CR XR CHEST 2V from 07/09/2019 CR XR CHEST 2V from 10/23/2019 FINDINGS: The cardiomediastinal silhouette and pulmonary vascularity are within normal limits. The lungs are clear without infiltrates, suspicious nodules, or pleural effusions. No acute bony abnormalities. There multilevel degenerate changes lower thoracic spine, multiple metallic brackets and pedicle screws are seen visualized portion of the lower thoracic and upper lumbar spine IMPRESSION: No acute findings. Dictated by: Dr. Cong Flores MD 06/06/2020 13:17 Dr. Cong Flores MD in [place] 06/06/2020 13:17
[2020-06-06 12:54] LABS: Basophils % 0.5 % (0.1-2.0); Eosinophils # 0.2 K/mm3 (0.0-0.4); Eosinophils % 3.9 % (0.1-12.0); Hemoglobin 12.9 g/dL (12.2-16.2); Lymphocytes # 1.8 K/mm3 (0.7-4.5); Lymphocytes % 33.3 % (10-50); Mean Corpuscular HGB Conc 31.6 g/dL (31.8-35.4); Mean Corpuscular Hemoglobin 27.7 pg (27.0-31.2); Mean Corpuscular Volume 87.7 fl (81-99); Mean Platelet Volume 7.7 fl (7.4-10.4); Monocytes # 0.5 K/mm3 (0.1-1.0); Monocytes % 8.6 % (1.7-9.3); Neutrophils # 2.8 K/mm3 (1.8-7.8); Neutrophils % 53.6 % (37.0-80.0); Platelet Count 361 K/mm3 (142-424); Red Blood Count 4.67 M/mm3 (4.20-5.40); Red Cell Distribution Width 16.5 % (11.5-17.5); White Blood Count 5.3 K/mm3 (4.8-10.8)
[2020-06-06 14:13] LABS: Coronavirus 19 IgG Antibody Negative (Negative); Coronavirus 19 IgM Antibody Negative (Negative)
== END ==
PROVIDERS: PCP Family Medicine; Visit Provider Family Medicine
DX: Z03.818 Encounter for observation for suspected exposure to other biological agents ruled out (principal)
CPT/HCPCS: 36415; 71045; 85025; 86328

== ENCOUNTER → 2020-06-07 14:11 | Outpatient (POV) | payer MEDICARE, SELFPAY | DX: Z00.00 Encounter for general adult medical examination without abnormal findings (principal) ==

== ENCOUNTER → 2020-06-22 13:46 | Outpatient (CLI) | payer MEDICARE, SELFPAY ==
[2020-06-22 16:23] LABS: Coronavirus 19 IgG Antibody Negative (Negative); Coronavirus 19 IgM Antibody Negative (Negative)
== END ==
PROVIDERS: Visit Provider Family Medicine
DX: Z03.818 Encounter for observation for suspected exposure to other biological agents ruled out (principal)
CPT/HCPCS: 36415; 86328

== ENCOUNTER → 2020-06-26 15:10 | Outpatient (CLI) | payer MEDICARE, SELFPAY | PROVIDERS: PCP Family Medicine | DX: Z01.818 Encounter for other preprocedural examination (principal); H25.12 Age-related nuclear cataract, left eye | CPT/HCPCS: U0003 ==

== ENCOUNTER → 2020-06-28 13:04 | Outpatient (POV) | payer MEDICARE, SELFPAY | DX: Z00.00 Encounter for general adult medical examination without abnormal findings (principal) ==

== ENCOUNTER → 2020-07-12 15:05 | Outpatient (POV) | payer MEDICARE, SELFPAY | DX: Z00.00 Encounter for general adult medical examination without abnormal findings (principal) ==

== ENCOUNTER → 2020-08-02 13:40 | Outpatient (POV) | payer MEDICARE, SELFPAY | DX: Z00.00 Encounter for general adult medical examination without abnormal findings (principal) ==

== ENCOUNTER → 2020-08-30 13:59 | Outpatient (POV) | payer MEDICARE, SELFPAY | DX: Z00.00 Encounter for general adult medical examination without abnormal findings (principal) ==

== ENCOUNTER → 2020-10-25 13:30 | Outpatient (POV) | payer MEDICARE, SELFPAY | DX: Z00.00 Encounter for general adult medical examination without abnormal findings (principal) ==

== ENCOUNTER → 2021-02-21 13:26 | Outpatient (POV) | payer MEDICARE, SELFPAY | DX: Z00.00 Encounter for general adult medical examination without abnormal findings (principal) ==

== ENCOUNTER 2021-03-23 14:00 | Outpatient (RCR) | payer MEDICARE, SELFPAY ==
--- NOTE | 2021-01-18 16:36 | HMH.PTOPEV ---
PT Outpatient Evaluation Rehab PT Outpatient Evaluation Start: 01/18/21 14:01 Freq: Status: Active Protocol: Document 01/18/21 16:20 FARZANA (Rec: 01/18/21 16:36 PHORNE [id number]) Electronically Signed By Rubens Urena, PT 01/18/21 16:20 Outpatient Therapy Subjective History Subjective History Pt is 75 yowf who presents with c/o L shld pain x ~ 3 mos and L hams/buttock pain x ~ 1 yr. She reports hams strain while going up steps to get out of the pool with no exact CONSTANTINO known. She reports it has gotten worse over time and now causes pain in her L buttocks with prolonged sitting. She reports insidious onset of the L shld pain. She reports both areas of discomfort are worse in the afternoon and evening. She has hx of multiple lumbar surgeries and R RCT repair. Chief Complaint Pain,Stiff Symptom Type Ache,Dull Symptoms Relieved By Rest/Positioning,Heat Symptoms Aggravated By Sitting,Physical Activity, Lifting Prior Functional Limitations None Current Functional Limitations Reaching,Lifting,Recreation Activity,Walking Symptom Description Constant but Variable Level of pain today (0-10) 1 Pain scale - at its worst (0-10) 9 Shoulder/Elbow Eval Shoulder Objective Measurements Palpation Tenderness Shoulder Palpation Findings Tenderness Shoulder Palpation Overall Comment L subscap insertion Shoulder ROM Left Shoulder Abduction Active Range of 0-100 Motion (degrees) Shoulder Flexion Active Range of Motion 0-115 (degrees) Query Text: Shoulder External Rotation Active Range 0-80 of Motion (degrees) Shoulder Internal Rotation Active Range 0-80 of Motion (degrees) Shoulder MMT Shoulder Abduction Strength Grade 4 Good Shoulder Flexion Strength Grade 4 Good Shoulder External Rotation Strength 4 Good Grade Shoulder Internal Rotation Strength 4 Good Grade Shoulder Special Tests Shoulder Empty Can (Supraspinatus) Test Negative Left,Negative Right Shoulder Lewis-Darion Impingement Negative Left,Negative Right Test Shoulder Neer Impingement Test Negative Right,Positive Left Elbow Objective Measurements Hip/Knee Eval Palpation Tenderness left Hip Palpation Findings Ten
--- NOTE | 2021-02-13 15:12 | HMH.RHREAS ---
Rehab Reassessment Rehab OP Re-assessment Start: 02/13/21 14:42 Freq: Status: Active Protocol: Document 02/13/21 15:06 FARZANA (Rec: 02/13/21 15:10 PHORBERNADETTE [id number]) Electronically Signed By Rubens Urena, PT 02/13/21 15:06 Rehab Re-assessment Subjective Subjective Pt reports she has less pain in the L hams and L shld overall, 7/10 today. She continues to c/o chronic pain worse with rain storms and increased heat. Objective Objective Notes MMT L SHLD: grossly 4+/5 throughout MMT L HIP: grossly 4+/5 throughout. Palpation tenderness L LHB tendon and L IT 2/4 ea. AROM L SHLD: Flex= 0-135 deg, Abd= 0-130 deg. Assessment Progress Assessment Progressing as Expected Assessment Notes Steadily improving pain in the L shld and L post hip/hams area. Improving strength. Gait pattern remains antalgic, but this is a chronic change. Patient goals met ST,2,3,4,5 Goals Not Met LT,2,3,4,5 Revised Goals none Plan Plan Continue per initial POC. Frequency of Therapy 2 x/wk Duration of therapy 8 wks Time and Billing Re-Eval Time 15 Re-Eval Billing Units 0 PHYSICIAN CERTIFICATION: I certify the specified therapy services for Yesenia Venegas are required, authorized, and reviewed every 30 days.
--- NOTE | 2021-03-13 15:33 | HMH.RHREAS ---
Rehab Reassessment Rehab OP Re-assessment Start: 02/13/21 14:42 Freq: Status: Active Protocol: Document 03/13/21 15:30 PHORBERNADETTE (Rec: 03/13/21 15:32 PHORNE [id number]) Electronically Signed By Rubens Urena, PT 03/13/21 15:30 Rehab Re-assessment Subjective Subjective Pt continues to reports pain, all over. She reports hip and shld feel better, but still hurt with most movement. However, she c/o pain throughout her body with most movement. Objective Objective Notes MMT L hip: Grossly 4+/5 throughout MMT L Shld: Grossly 4+/5 throughout Palpation tenderness: L IT and L post RC tendon 08/21 Assessment Progress Assessment Progressing as Expected Assessment Notes B Hams and piriformis present with less tightness overall. Strength steadily improving in L shld. Patient goals met ST,2,3,4,5 Goals Not Met LT,2,3,4,5 Revised Goals none Plan Plan Continue per initial POC. Frequency of Therapy 2 x/wk Duration of therapy 8 wks Time and Billing Re-Eval Time 15 Re-Eval Billing Units 0 PHYSICIAN CERTIFICATION: I certify the specified therapy services for Yesenia Venegas are required, authorized, and reviewed every 30 days.
== END 2021-03-23 15:15 | disposition home or self-care (01) ==
LOC: PT 14:00
PROVIDERS: PCP Family Medicine; Visit Provider Family Medicine
DX: S76.012A Strain of muscle, fascia and tendon of left hip, initial encounter (principal); M62.830 Muscle spasm of back; M25.512 Pain in left shoulder
CPT/HCPCS: 97014; 97033; 97110; 97140; 97163; 97164; G0283

== ENCOUNTER → 2021-03-26 14:20 | Outpatient (CLI) | payer MEDICARE, SELFPAY | PROVIDERS: PCP Family Medicine; Visit Provider Nurse Practitioner Family | DX: G47.33 Obstructive sleep apnea (adult) (pediatric) (principal) | CPT/HCPCS: 94762 ==

== ENCOUNTER → 2021-06-27 16:09 | Outpatient (CLI) | payer MEDICARE, SELFPAY ==
--- NOTE | 2021-06-27 16:13 | MM_ITS ---
PROCEDURE INFORMATION: Exam: MG Bilateral Screening 3D Mammography Exam date and time: 06/27/2021 4:13 PM Age: 76 years old Clinical indication: Screening exam; No personal or family HX of malignancy TECHNIQUE: Imaging protocol: Bilateral screening tomosynthesis and 2D mammography including computer-aided detection (CAD) when performed. COMPARISON: 1. MG MM DIG SCREENING MAMM BI W/CAD 05/19/2020 3:27 PM 2. MG DIG MAMM-SCREEN [place]ER[place] 03/01/2019 4:22 PM 3. MG SCBI MM Dig screening mamm BI w/CAD 02/27/2018 9:39 AM FINDINGS: MAMMOGRAPHY: Breast composition: There are scattered areas of fibroglandular density. Mass: No suspicious masses. Architectural distortion: No suspicious distortion. Calcifications: No suspicious calcifications. Asymmetric density: None. Skin thickening: None. Axillary adenopathy: None. IMPRESSION: No mammographic evidence of malignancy. Annual screening is recommended unless otherwise clinically indicated. ASSESSMENT: BI-RADS Category 1: Negative
== END ==
PROVIDERS: PCP Family Medicine; Visit Provider Family Medicine
DX: Z12.31 Encounter for screening mammogram for malignant neoplasm of breast (principal)
CPT/HCPCS: 77063; 77067

== ENCOUNTER → 2021-07-27 12:58 | Outpatient (CLI) | payer MEDICARE, SELFPAY ==
--- NOTE | 2021-07-27 14:00 | PC.NURSE ---
PFT complete without incident. Albuterol 0.083% given via HHN, per protocol, Pt tolerated tx well.
== END ==
PROVIDERS: PCP Family Medicine; Visit Provider Internal Medicine Pulmonary Disease
DX: R06.09 Other forms of dyspnea (principal)
CPT/HCPCS: 94060; 94726; 94729

== ENCOUNTER → 2021-07-31 14:57 | Outpatient (CLI) | payer MEDICARE, SELFPAY ==
--- NOTE | 2021-07-31 14:58 | CT_ITS ---
PROCEDURE: CT LUNG SCREENING CLINICAL INDICATION: lung cancer screening COMPARISON: CT CT CHEST W CON from 05/20/2019 TECHNIQUE: The exam was performed on a GE [employer] Speed [address] scanner using 2.90 mGy CTDI. A low dose helical CT CHEST was performed on a multi-detector scanner. All CT scans at the facility use one or more dose reduction, viz: automated exposure control, ma/kV adjustment per patient size (including targeted exams where dose is matched to indication, i.e. head), or iterative reconstruction technique. The LDCT was performed in a facility that meets the criteria for the screening program. Data regarding this exam was submitted to ACR which is an approved registry. The order for this exam indicates that it came as a result of a lung cancer screening counseling shard decision-making visit that included all the elements required of such a visit including smoking cessation. The radiologist interpreting this exam meets the CMS criteria for the LDCT lung cancer screening program. The exam is reported using the Lung-RADS classification scale and reported to the ACR registry. NOTE: This study was performed for the specific purposes of lung cancer screening and is not an alternative to diagnostic chest CT. RADIATION DOSE: CTDI vol(CT dose Index-volume) = 2.90mG DLP (Dose Length Product) = 84.91 mGcm FINDINGS: No suspicious mass apparent. Chronic volume loss within the lingula. Calcified granuloma right lower lobe medially and right upper lobe medially.. OTHER FINDINGS: Coronary artery calcifications. Kyphosis of the thoracic spine. Prior kyphoplasty T10 with inter pedicular screws at T10, T11 and T12 with degenerative changes of the thoracic spine. IMPRESSION: Lung-RADS Category 2 Benign Appearance or Behavior Follow-up: Continue annual screening with LDCT in 12 months Dictated by: Chris Patton MD 08/01/2021 09:29 Chris Patton MD in [place] 08/01/2021 09:29
== END ==
PROVIDERS: PCP Family Medicine; Visit Provider Internal Medicine Pulmonary Disease
DX: Z87.891 Personal history of nicotine dependence (principal); Z12.2 Encounter for screening for malignant neoplasm of respiratory organs
CPT/HCPCS: 71271

== ENCOUNTER → 2021-08-07 13:14 | Outpatient (POV) | payer MEDICARE, SELFPAY | PROVIDERS: Visit Provider Dermatology | DX: Z00.00 Encounter for general adult medical examination without abnormal findings (principal) ==

== ENCOUNTER → 2021-10-30 15:06 | Outpatient (POV) | payer MEDICARE, SELFPAY | PROVIDERS: Visit Provider Dermatology | DX: Z00.00 Encounter for general adult medical examination without abnormal findings (principal) ==

== ENCOUNTER 2022-03-12 13:53 | Outpatient (RCR) | payer MEDICARE, SELFPAY | END 2022-03-12 15:00 | disposition home or self-care (01) | LOC: PT 13:53 | PROVIDERS: Visit Provider Internal Medicine Pulmonary Disease | DX: J44.9 Chronic obstructive pulmonary disease, unspecified (principal) ==

== ENCOUNTER → 2022-04-20 10:23 | Outpatient (CLI) | payer MEDICARE, SELFPAY ==
[2022-04-20 10:30] LABS: Microscopic, Urine URINE MICROSCOPIC (MICROSCOPIC)
[2022-04-20 11:50] LABS: Appearance,Urine CLEAR (Clear); Bilirubin,Urine Negative (Negative); Blood, Urine Negative (Negative); Color,Urine YELLOW (Yellow); Glucose,Urine (UA) Negative (Negative); Ketones,Urine Negative (Negative); Leukocyte Esterase,Urine 1+ (Negative); Nitrate,Urine Negative (Negative); PH,Urine 6.5 (5.0-8.5); Protein,Urine Negative (Negative); Urobilinogen,Urine 0.2 EU/dl (0.2)
[2022-04-20 12:11] LABS: Bacteria,Urine Trace /lpf
== END ==
PROVIDERS: PCP Family Medicine; Visit Provider Family Medicine
DX: N39.0 Urinary tract infection, site not specified (principal)
CPT/HCPCS: 81001; 87086

== ENCOUNTER → 2022-07-09 13:33 | Outpatient (CLI) | payer MEDICARE, SELFPAY ==
--- NOTE | 2022-07-09 13:35 | MM_ITS ---
PROCEDURE INFORMATION: Exam: MG Bilateral Screening 3D Mammography Exam date and time: 07/09/2022 1:29 PM Age: 77 years old Clinical indication: Screening examination. No family history of breast cancer. TECHNIQUE: Imaging protocol: Bilateral Screening tomosynthesis and 2D mammography including computer-aided detection (CAD) when performed. COMPARISON: 1. MG MM DIG SCREENING MAMM BI W/CAD 06/27/2021 4:09 PM 2. MG MM DIG SCREENING MAMM BI W/CAD 05/19/2020 3:27 PM 3. MG DIG MAMM-SCREEN [place] 03/01/2019 4:22 PM 4. MG SCBI MM Dig screening mamm BI w/CAD 02/27/2018 9:39 AM FINDINGS: MAMMOGRAPHY: Breast composition: There are scattered areas of fibroglandular density. Mass: None. Architectural distortion: None. Calcifications: No suspicious calcifications. Asymmetric density: None. Skin thickening: None. Axillary adenopathy: None. IMPRESSION: No mammographic evidence of malignancy. Annual screening is recommended unless otherwise clinically indicated. ASSESSMENT: BI-RADS Category 1: Negative
== END ==
PROVIDERS: PCP Family Medicine; Visit Provider Family Medicine
DX: Z12.31 Encounter for screening mammogram for malignant neoplasm of breast (principal)
CPT/HCPCS: 77063; 77067

== ENCOUNTER → 2022-07-29 15:35 | Outpatient (CLI) | payer MEDICARE, SELFPAY ==
--- NOTE | 2022-07-29 15:35 | CT_ITS ---
FINAL REPORT CLINICAL HISTORY: lung cancer screening, hx smoker of 1ppd for 40 years, quit 10 years ago COMPARISON: April 12, 2019 and July 31, 2021 FINDINGS: Low-Dose Chest CT Axial images were obtained from the lung apex to the mid abdomen by computed tomography. Low-dose protocol was utilized. CTDI vol (mGy): 2.90 DLP (mGy-cm): 91.95 There is no axillary adenopathy. There is no hilar or mediastinal adenopathy. The heart is proper size. There is no pericardial or pleural effusion. Lung window images demonstrate no suspicious infiltrate or nodule. There is mild pulmonary scarring. There are several calcified granulomas. No new mass or nodule is identified. Limited images of the upper abdomen are unremarkable. IMPRESSION: No suspicious infiltrate or nodule. Lung RADS category 1. Recommend 12 month follow-up low-dose chest CT. Reviewed, Interpreted and Dictated by Ben Forte III, MD Transcribed by Brianna Anderson Authenticated and [facility]
== END ==
PROVIDERS: PCP Family Medicine; Visit Provider Internal Medicine Pulmonary Disease
DX: Z87.891 Personal history of nicotine dependence (principal); Z12.2 Encounter for screening for malignant neoplasm of respiratory organs
CPT/HCPCS: 71271

== ENCOUNTER → 2022-10-29 11:26 | Outpatient (POV) | payer MEDICARE, SELFPAY | PROVIDERS: Visit Provider Dermatology | DX: Z00.00 Encounter for general adult medical examination without abnormal findings (principal) ==

== ENCOUNTER → 2022-12-27 12:41 | Outpatient (CLI) | payer MEDICARE, SELFPAY ==
--- NOTE | 2022-12-27 12:50 | XR_ITS ---
FINAL REPORT CLINICAL HISTORY: Pt fell this morning, LBP mostly Rt sided, radiating down Rt leg. FINDINGS: THORACIC SPINE Two views demonstrate no acute fracture. There is thoracic kyphosis. Moderate spondylosis is identified. There is thoracolumbar spinal fixation hardware extending into the lumbar spine. There is no malalignment. IMPRESSION: Degenerative and postoperative changes. LUMBAR SPINE Five views demonstrate no acute fracture. There is extensive spinal fixation hardware in the lower thoracic spine into the sacrum. The patient is status post laminectomy. There is grade 1 spondylolisthesis of L4 on 5 and L5 on S1. IMPRESSION: Extensive postoperative and chronic changes as above. Reviewed, Interpreted and Dictated by Deana Malone MD Transcribed by Sally Dey Authenticated and [facility]
== END ==
PROVIDERS: PCP Family Medicine; Visit Provider Family Medicine
DX: M54.6 Pain in thoracic spine (principal); M54.50 Low back pain, unspecified
CPT/HCPCS: 72084

== ENCOUNTER → 2023-07-24 16:24 | Outpatient (CLI) | payer MEDICARE, SELFPAY | PROVIDERS: PCP Family Medicine; Visit Provider Obstetrics & Gynecology | DX: N76.0 Acute vaginitis (principal) | CPT/HCPCS: 87070; 87205 ==

== ENCOUNTER → 2023-08-12 14:26 | Outpatient (CLI) | payer MEDICARE, SELFPAY ==
--- NOTE | 2023-08-12 14:30 | CT_ITS ---
FINAL REPORT CLINICAL HISTORY: lung cancer screening CURRENT SMOKER 1PPD X40 YEARS COMPARISON: 08/08/2022 FINDINGS: CT CHEST LOW DOSE SCREENING HISTORY: Screening exam for lung cancer. 78-year-old female, Current smoker, 40 pack year smoking history DOSE: CTDIvol: 2.9 mGy, DLP: 88.3 mGy*cm COMPARISON: 08/08/2022. TECHNIQUE: Axial CT without IV contrast administration using low dose protocol FINDINGS: No acute lung disease is present . Mild scarring is noted particularly in the lingula, stable since the prior CT. No pulmonary lesions are seen suspicious for neoplasm. No pleural or pericardial effusion is seen . No adenopathy or mass lesion is present . Mild streak artifact is present secondary to posterior lumbar fusion instrumentation. IMPRESSION: No evidence of mass or nodule, with mild scarring unchanged since the prior CT of 2021. LUNG RADS CATEGORY 1 RECOMMENDATION: 12 month LDCT follow up Reviewed, Interpreted and Dictated by Karthik Gill MD Transcribed by Diana Doll Authenticated and [facility]
[2023-08-12 16:10] VITALS: PULSE 89; PULSE 92
[2023-08-12] MEDS: ALBUTEROL 0.083% 2.5 MG/3 ML NEB IH (16:10)
== END ==
LOC: RAD 14:26
PROVIDERS: PCP Family Medicine; Visit Provider Internal Medicine Pulmonary Disease
DX: F17.210 Nicotine dependence, cigarettes, uncomplicated; Z12.2 Encounter for screening for malignant neoplasm of respiratory organs; R06.09 Other forms of dyspnea
CPT/HCPCS: 71271; 94060; 94640; 94726; 94729

== ENCOUNTER 2023-11-27 09:28 | Outpatient (CLI) | payer MEDICARE, SELFPAY ==
--- NOTE | 2023-11-27 09:35 | MM_ITS ---
PROCEDURE INFORMATION: Exam: MG Bilateral Screening 3D Mammography Exam date and time: 11/27/2023 9:57 AM Age: 78 years old Clinical indication: Screening mammogram TECHNIQUE: Imaging protocol: Bilateral Screening tomosynthesis and 2D mammography including computer-aided detection (CAD) when performed. COMPARISON: 1. MG MM DIG SCREENING MAMM BI W/CAD 07/09/2022 1:29 PM 2. MG MM DIG SCREENING MAMM BI W/CAD 06/27/2021 4:09 PM 3. MG MM DIG SCREENING MAMM BI W/CAD 05/19/2020 3:27 PM 4. MG DIG MAMM-SCREEN [place] 03/01/2019 4:22 PM FINDINGS: MAMMOGRAPHY: Breast composition: There are scattered areas of fibroglandular density. Mass: 0.6 cm mass within the upper slightly inner left middle 1/3 should be further assessed with spot views in CC/MLO projection. Ultrasound may also be required. Architectural distortion: No new or suspicious architectural distortion. Calcifications: No new or suspicious calcifications are present Asymmetric density: No new or suspicious asymmetric density is present Skin thickening: None. Axillary adenopathy: None. IMPRESSION: 0.6 cm mass within the upper slightly inner left middle 1/3 should be further assessed with spot views in CC/MLO projection. Ultrasound may also be required. ASSESSMENT: BI-RADS category 0: Incomplete-need additional imaging evaluation
--- NOTE | 2023-11-27 09:35 | XR_ITS ---
FINAL REPORT TECHNIQUE: Bone mineral density was calculated of the lumbar spine and hip. CLINICAL HISTORY: POST MENOPAUSAL COMPARISON: None FINDINGS: Using the distal right forearm, the bone mineral density of the arm is 0.464 g/cm2, corresponding to T-score of -2.1. Using the left hip, the bone mineral density of the femoral neck is 0.696 g/cm2, corresponding to a T-score of -1.4. Using the right hip, the bone mineral density of the femoral neck is 0.661 g/cm?, corresponding to a T-score of -1.7 NOTE: T-score: Standard deviation compared with peak bone mass of young adult mean. *Following the recommendations of the International Society of Bone densitometry, classification of hip BMD is based on the lower of two T-scores; total hip or femoral neck. IMPRESSION: Diminished bone mineral density of the right forearm and bilateral hips are consistent with low bone density. Reviewed, Interpreted and Dictated by Ben Forte III, MD Transcribed by Diana Doll Authenticated and [facility]
== END 2023-11-27 23:59 | disposition home or self-care (01) ==
LOC: RAD 09:28
PROVIDERS: PCP Family Medicine; Visit Provider Family Medicine
DX: Z12.31 Encounter for screening mammogram for malignant neoplasm of breast (principal); Z78.0 Asymptomatic menopausal state
CPT/HCPCS: 77063; 77067; 77080

== ENCOUNTER 2023-12-09 14:52 | Outpatient (CLI) | payer MEDICARE, SELFPAY ==
--- NOTE | 2023-12-09 14:56 | MM_ITS ---
PROCEDURE INFORMATION: Exam: US Left Breast, Complete MG Left Diagnostic Breast Tomosynthesis Exam date and time: 12/09/2023 2:47 PM Age: 78 years old Clinical indication: Patient recalled on the basis of a screening mammogram for further evaluation; Left breast; mass TECHNIQUE: Imaging protocol: Complete ultrasound of all four quadrants of the left breast and the retroareolar regions, including ultrasound of the axilla when performed. Left Diagnostic tomosynthesis and 2D mammography including computer-aided detection (CAD) when performed. Unilateral or bilateral exam. COMPARISON: 1. MG MM DIG SCREENING MAMM BI W/CAD 11/27/2023 9:57 AM 2. MG MM DIG SCREENING MAMM BI W/CAD 07/09/2022 1:29 PM FINDINGS: MAMMOGRAPHY: Breast composition: There are scattered areas of fibroglandular density (based on the most recent screening mammogram report). Breast mammogram findings: Digital diagnostic spot compression views of the left breast and 90 degree lateral view of the left breast demonstrate normal overlapping fibroglandular structures without persistent mass or asymmetry identified. ULTRASOUND: Breast ultrasound findings: Sonographic images of the left breast including the retroareolar region, all 4 quadrants and the axilla do not demonstrate any solid masses. 0.5 cm focus of cystic change in the 11 o'clock axis 5 cm from the nipple. No architectural distortion or acoustical shadowing. No skin thickening or axillary adenopathy. IMPRESSION: No mammographic or sonographic evidence of malignancy. Annual bilateral mammographic screening is recommended unless otherwise clinically indicated. ASSESSMENT: BI-RADS Category 2: Benign.
== END 2023-12-09 23:59 | disposition home or self-care (01) ==
LOC: RAD 14:53
PROVIDERS: PCP Family Medicine; Visit Provider Family Medicine
DX: R92.8 Other abnormal and inconclusive findings on diagnostic imaging of breast (principal)
CPT/HCPCS: 76641; 77061; 77065; G0279

== ENCOUNTER 2023-12-23 13:58 | Outpatient (CLI) | payer MEDICARE, SELFPAY ==
[2023-12-23 15:57] VITALS: BMI 36.7
== END 2023-12-23 23:59 | disposition home or self-care (01) ==
LOC: DIETICIAN 13:59
PROVIDERS: PCP Family Medicine; Visit Provider Family Medicine
DX: Z71.3 Dietary counseling and surveillance (principal); E78.5 Hyperlipidemia, unspecified
CPT/HCPCS: 97802

== ENCOUNTER 2024-01-16 06:23 | Day surgery (SDC) | payer MEDICARE, SELFPAY ==
[2024-01-14 10:58] VITALS: BMI 36.6
--- NOTE | 2024-01-16 06:47 | P.PCN_ITS ---
Procedure: Date: 01/16/24 Patient Date of :: 1945 Procedure Performed:: Total colonoscopy with polypectomy using biopsy forceps Indications:: Patient is a 78-year-old female. I performed colonoscopy on 12/03/2010 at which time she had a polyp removed. I had performed a colonoscopy in April 2016 at which time she had focal active colitis at the ileocecal valve and a couple of tubular adenomas in the descending colon. I performed follow-up colonoscopy 10/05/2019. At that time she had fair colonic preparation with significant pandiverticulosis, internal hemorrhoids, tubular adenoma in the sigmoid colon. She did have internal anal papilla which revealed hyperplastic squamous epithelium. . Performing Provider:: Ben Heart MD Referring Provider:: Sid Rodríguez MD Sedation:: MAC sedation Procedure:: Patient history was obtained and appropriate physical examination was performed. Patient's medications and allergies were reviewed. Informed consent was obtained after explaining the benefits, alternatives, and risks of the procedure including, but not limited to, bleeding, perforation, missed lesions, and adverse reaction to anesthesia medications. Patient was transported to endoscopy procedure room. Patient was connected to monitoring devices. Throughout the procedure the patient's blood pressure, pulse, and oxygen saturations were monitored continuously. Patient identific ation and planned procedure were verified by the staff. Patient was positioned in lateral decubitus position. Digital anorectal exam was performed. Variable stiffness Olympus colonoscope was inserted and advanced under direct visualization to the cecum. Adequacy of the colonic preparation was noted. The colonoscope was advanced a short distance into the terminal ileum. The colonoscope was then slowly withdrawn while carefully examining the color, texture, anatomy, and integrity of the mucosoa circumferentially. Within the rectum retroflexion was performed. Colonoscope was then withdrawn. Impression: There was some particulate stool throughout the colon. This was able to be cleared. She had severe pandiverticulosis. In the ascending colon there was a small adenomatous appearing polyp removed with biopsy forceps. In the descending colon there was a small diminutive polyp removed with biopsy forceps. In the rectosigmoid region there were several hyperplastic appearing polyps removed with biopsy forceps. . Findings:: Significant pandiverticulosis Polyps as noted above . Recommendations:: Repeat colonoscopy pending pathology of polyps. Likely 5 to 7 years. However, given the diminutive polyps if minimal adenomatous findings may consider Cologuard screening. Complications:: None immediately apparent Estimated blood obtained (mL): 1 Colonoscopy Component Colonoscopy Component Was a colonoscopy performed during today's procedure?: Yes Recommended follow up colonoscopy of at least 10 years?: No If no, follow up colonoscopy recommended in ___ years?: See above Reason for not recommending >/= 10 yr follow-up interval?: See above
[2024-01-16 07:02] VITALS: BP 126/55; PULSE 77; RESP 20; TEMP 36.1; O2SAT 95
[2024-01-16] MEDS: LACTATED RINGERS 1000ML 1,000 ML 25 ML IV (07:11)
--- NOTE | 2024-01-16 07:21 | P.PNANES_ITS ---
[facility] Disclaimer: The information contained in this section may have been updated after the patient was seen, as this information can be updated by other users. Medical History Allergic rhinitis Smoking greater than 30 pack years Chronic hypoxemic respiratory failure History of asthma Allergies COPD (chronic obstructive pulmonary disease) Dyspnea on exertion Surgical History H/O sinus surgery History of back surgery History of cataract surgery History of arthroscopy of shoulder Family History (Updated 01/16/24 @ 07:10 by Lynsey Navarro, CHANEL) Other Asthma Hypertension Pancreatic cancer Social History (Updated 01/16/24 @ 07:10 by Lynsey Navarro RN) Smoking Status: Former smoker tobacco type: cigarettes alcohol intake: current alcohol intake frequency: holidays/special occasions only substance use type: prescription drug current occupational status: retired Travel in the last 8 weeks: None household members: none housing: house current occupational exposures/hazards: No caffeine: Yes [facility] Anesthesia Checklist Patient Identification Patient Identification: Arm Band Structural Data Admitted From: Home Planned Operative Procedure/s: Colonoscopy Consent for Planned Operative Procedure(s) Verified: Yes Verified Documents: Surgical Consent and History and Physical NPO Status Verified Time NPO: 00:00 Additional verifications Anesthesia Reactions: No Airway Assessment Mallampati Score:: Class III C-Spine Mobility Assessed: Yes TMJ Mobility Assessed: Yes Dentition: Good Dentition Neurological Assessment Level of Consciousness: Awake, Alert and Appropriate Anesthesia Plan Anesthesia Risk discussed: Yes Anesthesia Plan: Verified ASA Class: III Anesthesia Type: MAC
[2024-01-16 07:23] VITALS: O2SAT 99
[2024-01-16 08:00] VITALS: BP 104/57; PULSE 78; RESP 18; TEMP 36.9; O2SAT 97
[2024-01-16 08:10] VITALS: BP 107/52; PULSE 77; RESP 18; O2SAT 94
[2024-01-16 08:20] VITALS: BP 119/59; PULSE 80; RESP 18; O2SAT 95
[2024-01-16 08:24] VITALS: BP 137/89; PULSE 72; RESP 16; O2SAT 95
== END 2024-01-16 08:28 | disposition home or self-care (01) ==
LOC: OUTP 06:25
PROVIDERS: PCP Family Medicine; Visit Provider Surgery
PROC: 0DJD8ZZ Inspection of Lower Intestinal Tract, Via Natural or Artificial Opening Endoscopic (ICD-10-PCS; principal; 2024-01-16 07:30)
DX: Z12.11 Encounter for screening for malignant neoplasm of colon (principal); Z86.010 Personal history of colon polyps; D12.2 Benign neoplasm of ascending colon; D12.4 Benign neoplasm of descending colon; K63.5 Polyp of colon; K57.90 Diverticulosis of intestine, part unspecified, without perforation or abscess without bleeding
CPT/HCPCS: 45380; J2704; J7120

== ENCOUNTER 2024-02-26 12:56 | Outpatient (CLI) | payer MEDICARE, SELFPAY | END 2024-02-26 23:59 | disposition home or self-care (01) | LOC: RT 12:56 | PROVIDERS: PCP Family Medicine; Visit Provider Internal Medicine Pulmonary Disease | DX: R06.02 Shortness of breath (principal); J84.9 Interstitial pulmonary disease, unspecified | CPT/HCPCS: 94060; 94726; 94729 ==

== ENCOUNTER 2024-03-30 08:38 | Outpatient (CLI) | payer MEDICARE, SELFPAY ==
[2024-03-30 09:09] LABS: Hematocrit 45.6 % (37.0-47.0); Hemoglobin 14.4 g/dL (12.2-16.2); Mean Corpuscular HGB Conc 31.6 g/dL (31.8-35.4); Mean Corpuscular Hemoglobin 32.2 pg (27.0-31.2); Platelet Count 311 K/mm3 (142-424); Red Blood Count 4.47 M/mm3 (4.20-5.40); Red Cell Distribution Width 14.1 % (11.5-17.5); White Blood Count 6.7 K/mm3 (4.8-10.8)
[2024-03-30 09:37] LABS: Albumin Level 4.4 g/dl (3.5-5.0); Chloride 103 mmol/L (98-107); Potassium 4.8 mmoL/L (3.5-5.1); Sodium 135 mmol/L (136-145)
[2024-03-30 09:40] LABS: Alanine Aminotransferase 24 U/L (12-78); Albumin/Globulin Ratio 1.5 (1.1-1.8); Alkaline Phosphatase 134 U/L (38-126); Anion Gap 7.8 mEq/L (5-15); Aspartate Amino Transferase 30 U/L (14-36); Bilirubin,Total 0.7 mg/dl (0.2-1.3); Blood Urea Nitrogen 17 mg/dl (7-17); Carbon Dioxide 29 mmol/L (22.0-30.0); Cholesterol 214 mg/dl (140-200); Estimated Glomerular Filt Rate 54 ml/min (>60); GFR (African American) 65 ML/MIN (>60); Globulin 2.9 g/dL (1.3-3.2); Total Protein,Serum 7.3 g/dl (6.3-8.2); Triglycerides 233 mg/dl (30-150); VLDL Cholesterol 47 mg/dL (0-40)
[2024-03-30 09:41] LABS: Calcium 9.5 mg/dl (8.4-10.2); Chol/HDL Ratio 3.8 (1-3.5); Glucose 101 mg/dl (74-100); HDL Cholesterol 57 mg/dl (40-60)
[2024-03-30 09:56] LABS: Triiodothryronine (T3) Uptake 32 % (23.5-40.5)
[2024-03-30 09:57] LABS: Direct LDL Cholesterol 105.97 mg/dL (100-129); Free Thyroxine Index 2.4 ug/dL (5.93-13.13); T4 (Thyroxine) 7.4 ug/dl (5.53-11.0)
[2024-03-30 10:11] LABS: Thyroid Stimulating Hormone 0.16 uIU/mL (0.465-4.68); Thyroid Stimulating Hormone 0.18 uIU/mL (0.465-4.68)
== END 2024-03-30 23:59 | disposition home or self-care (01) ==
PROVIDERS: PCP Family Medicine; Visit Provider Physician Assistant Medical
DX: R06.09 Other forms of dyspnea (principal); E78.5 Hyperlipidemia, unspecified
CPT/HCPCS: 36415; 80053; 80061; 84436; 84443; 84479; 85014; 85018; 85048; 85049

== ENCOUNTER 2024-06-01 14:24 | Outpatient (CLI) | payer MEDICARE, SELFPAY ==
--- NOTE | 2024-06-01 14:25 | CT_ITS ---
FINAL REPORT TECHNIQUE: Axial images through the chest were performed by computed tomography. This study was performed with techniques to keep radiation doses as low as reasonably achievable, (ALARA). Individualized dose reduction techniques using automated exposure control or adjustment of mA and/or kV according to the patient's size were employed. CLINICAL HISTORY: .NODULE , HIGH RESOLUTION CHEST X 3 COMPARISON: 08/12/2023 FINDINGS: CT CHEST: High-resolution images were obtained, as well as supine inspiration and expiration and prone inspiration images of the chest. There is linear density present in the lingula, likely scar, unchanged since the prior CT examination. A small hiatal hernia is present. Mild coronary artery calcifications are identified. There is streak artifact in the lower chest secondary to fusion hardware in the lower thoracic and upper lumbar spine. There are advanced changes of osteophytes in the lower thoracic spine. The heart size is normal. There is no pericardial or pleural effusion. No suspicious infiltrate or nodule identified. There is no evidence of bronchiectasis, pulmonary fibrosis, or air trapping. IMPRESSION: Linear density in the lingula, likely scar, unchanged since the prior exam of 2022. There is no evidence of bronchiectasis, pulmonary fibrosis, air trapping, suspicious infiltrate or nodule. Reviewed, Interpreted and Dictated by Karthik Gill MD Transcribed by Diana Doll Authenticated and [facility]
== END 2024-06-01 23:59 | disposition home or self-care (01) ==
LOC: RAD 14:25
PROVIDERS: PCP Family Medicine; Visit Provider Internal Medicine Pulmonary Disease
DX: J84.9 Interstitial pulmonary disease, unspecified (principal)
CPT/HCPCS: 71250

== ENCOUNTER 2024-12-20 15:08 | Outpatient (CLI) | payer MEDICARE, SELFPAY ==
--- NOTE | 2024-12-20 15:18 | XR_ITS ---
FINAL REPORT CLINICAL HISTORY: BRONCHITIS FINDINGS: 2 views of the chest were obtained . The heart is normal in size. The mediastinum is within normal limits. There is lingular atelectasis. The lungs are otherwise clear. There is no effusion or pneumothorax. Osseous structures are unremarkable. IMPRESSION: Lingular atelectasis. Reviewed, Interpreted and Dictated by Tamra Aguilar MD Transcribed by Cassie Walter Authenticated and [facility]
== END 2024-12-20 23:59 | disposition home or self-care (01) ==
LOC: RAD 15:09
PROVIDERS: PCP Family Medicine; Visit Provider Nurse Practitioner Family
DX: J20.9 Acute bronchitis, unspecified (principal)
CPT/HCPCS: 71046

== ENCOUNTER 2024-12-27 14:15 | Outpatient (CLI) | payer MEDICARE, SELFPAY ==
--- OUTSIDE RECORDS SUMMARY | 2024-12-27 14:17 | XMS_ITS | Data Portability ---
Author Organization NURY - JACOBO Akhtar C[facility]ON CLOSED Address [address] [place] [address] [address] [place] [address] Assessment Encounter Date Assessment Date Assessment LastModified by Organization Details LastModified Time 03/23/2018 03/23/2018 Routine staple removal s/p L1-2 PLIF ext. T11-L1 screw placement, T11-L2 fusion 03/10/18. Her incision healed nicely, went ahead w/ the removal. She handled the procedure well. [email or web address] Not available 03/23/2018 10:53:13 04/13/2018 04/13/2018 lumbar x ray performed today shows good placement of hardware without evidence of loosening Ms. Venegas is s/p extension of her fusion to include T11 through iliac screws on 03/[address] Mcnulty. She is doing well. She is taking about 4 pain pills a day. She was provided with a Lily Dale refill today to take as needed. She will continue to wear her brace about 2-3 weeks and then wean as tolerated. She will wait about 2 weeks and then she may return to getting in a pool and doing water aerobics. She will follow up with a PA in 2 months with another set of x rays. Patient understands and agrees with this plan. Seen by Dr. Ellyn Mcnulty and myself. [email or web address] Not available 04/13/2018 15:16:35 Plan of Treatment Reminders Order Date Submit Date Provider Last Modified By Organization Details Last Modified Time Details Appointments FOLLOW UP DAK 2024 10:40A Ector HERNANDEZ MD Not available Not available Not available Lab None recorded . Referral None recorded . Procedures None recorded . Surgeries None recorded . Imaging None recorded . Medication Orders Lily Dale 7.5 mg-325 mg tablet 2017 018 [email or web address] [facility], [address], [address], [place], [address], 04/13/2018 14:20:08 Patient TargetsNo targets recorded. Patient Instructions Encounter Date Encounter Id Patient Instructions Last Modified By Organization Details Last Modified Time 06/15/2018 [id number] Spent {{15# }} total minutes with the patient today. Greater than 50% of this time was spent counseling/coordi nation of care as documented in my assessment and plan above. [email or web address] Not available 06/16/2018 08:43:14 12/14/2018 [id number] Spent {{15# }} total minutes with the patient today. Greater than 50% of this time was spent counseling/coordi nation of care as documented in my assessment and plan above. Not available 12/14/2018 14:38:04 Reason for Referral None Reported. Results Created Date Observation Date Name Description Value Unit Range Abnormal Flag Note LastModifiedBy Organization Detail LastModifiedTime 03/23/20 18 03/23/2018 XR, lumbo sacra l spine , 2 or [address] [address] Patiglenn echevarria Name: LIONEL echevarria : [id number] George echevarria Orderi ng Provid er: BILLY MCNULTY EXAM DATE: 2017 EXAM: XR LUMBAR AP/LAT CLINIC AL INFORM ATION: Postop erativ e. IMAGES PROVID ED: AP, latera l, and coned- down views of the lumbar spine. COMPAR KRUPA: None. FINDIN GS AND IMPRES ALISSA: Spinal fusion is noted at T11-L2 level with pedicu lar screws and connec ting rods. Surgic al hardwa re is satisf actori ly placed . No eviden ce of loosen ing or infect ion is seen. Other levels are normal . Interp reted By: Otilia Sommer MD Electr onical ly Signed By: Otilia Sommer MD on 03/23/20 18 10:51 AM [email or web address] [facility] Radiology [facility] [address] [place] [address], [phone], 03/25/2018 08:25:01 03/23/20 18 03/23/2018 XR, thora cic spine , 2 view [place] [address] [place] [address] George echevarria Name: LIONEL echevarria : [address] George echevarria Orderi ng Provid er: ADONISDora BERNSTEINT EXAM DATE: 2017 EXAM: XR THORAC IC AP/LAT CLINIC AL INFORM ATION: Back pain. IMAGES PROVID ED: AP, and latera l views of the thorac ic spine. COMPAR KRUPA: None. FINDIN GS: Curvat ure and verteb ral body height s are normal . Multil evel disc space reduct ion is seen with anteri or and latera l osteop hytes. Surgic al hardwa re is seen at T11 and T12 levels . No radiog raphic eviden ce of injury is noted. IMPRES ALISSA: Degene rative change s of the thorac ic spine. Interp reted By: Otilia Sommer MD Electr onical ly Signed By: Otilia Sommer MD on 03/23/20 18 10:[email or web address] Radiology [facility] [address] [place] [address], [phone], 03/25/2018 08:25:00 04/13/20 18 04/13/2018 XR, lumbo sacra l spine , [facility] [address] [place] [address] George echevarria Name: LIONEL echevarria : [address] George echevarria Orderi ng Provid er: BILLY MCNULTY EXAM DATE: 2017 EXAM: XR LUMBAR AP/LAT CLINIC AL INFORM ATION: Postop erativ e. IMAGES PROVID ED: AP, latera l, and coned- down views of the lumbar spine. COMPAR KRUPA: None. FINDIN GS AND IMPRES ALISSA: Spinal fusion is noted at T10-L2 level with pedicu lar screws and connec ting rods. Surgic al hardwa re is satisf actori ly placed . No eviden ce of loosen ing or infect ion is seen. Interp reted By: Otilia Sommer MD Electr onical ly Signed By: Otilia Sommer MD on 018 3:[address] Rad[address], [address], 04/13/2018 17:39:27 04/13/20 18 04/13/2018 XR, thora cic spine , 2 view [place] [address] [place] [address] Patiglenn echevarria Name: LIONEL echevarria : [address] George echevarria Orderi ng Provid er: BILLY BERNSTEINT EXAM DATE: 2017 EXAM: XR THORAC IC AP/LAT CLINIC AL INFORM ATION: Back pain. IMAGES PROVID ED: AP, and latera l views of the thorac ic spine. COMPAR KRUPA: None. FINDIN GS: Curvat ure, alignm ent, verteb ral body height s are normal . Multil evel disc space reduct ion is seen with anteri or and latera l osteop hytes. Surgic al hardwa re is seen in the lower thorac ic and lumbar spine. No radiog raphic eviden ce of injury is noted. IMPRES ALISSA: Degene rative change s of the cervic al spine. Interp reted By: Otilia Sommer MD Electr onical ly Signed By: Otilia Sommer MD on 018 4:[address] Rad[address], [address], 04/13/2018 17:38:58 06/15/20 18 06/15/2018 XR, lumbo sacra l spine , 2 or 3 view [place] [address] [place] [address] Patigl[place] t Name: LIONEL echevarria : [address] echevarria Orderi ng Provid er: BILLY MCNULTY EXAM DATE: 2017 EXAM: XR LUMBAR AP/LAT CLINIC AL INFORM ATION: Postop erativ e. IMAGES PROVID ED: AP, latera l, and coned- down views of the lumbar spine. COMPAR KRUPA: None. FINDIN GS AND IMPRES ALISSA: Spinal fusion is noted at T11-S2 level with pedicu lar screws and connec ting rods. Surgic al hardwa re is satisf actori ly placed . No eviden ce of loosen ing or infect ion is seen. Interp reted By: Otilia Sommer MD Electr onical ly Signed By: Otilia Sommer MD on 2017 2:[address] Radiology [facility] [address] [place] [address], [phone], 06/18/2018 18:03:55 06/15/20 18 06/15/2018 XR, thora cic spine , [address] [place] [address] Patiglenn echevarria Name: LIONEL echevarria : [address] George echevarria Orderi ng Provid er: BILLY MCNULTY EXAM DATE: 2017 EXAM: XR THORAC IC AP/LAT CLINIC AL INFORM ATION: Postop erativ e. IMAGES PROVID ED: AP, latera l and swimme r's views of the thorac ic spine. COMPAR KRUPA: None. FINDIN GS AND IMPRES ALISSA: Spinal fusion is noted at T11 and T12 level with pedicu lar screws and connec ting rods, contin uing down into the lumbar spine. Surgic al hardwa re is satisf actori ly placed . No eviden ce of loosen ing or infect ion is seen. Degene rative change s are seen at other levels . Interp reted By: Otilia Sommer MD Electr onical ly Signed By: Otilia Sommer MD on 2017 2:23 PM [email or web address] [facility] Radiology [facility] [address] [place], [address], 06/18/2018 18:03:55 12/15/19 19 12/14/2018 XR, lumbo sacra l spine , 2 or 3 view [place] [address] [address] George echevarria Name: LIONEL echevarria : [address] George echevarria Orderi ng Provid er: ADONISDora Mitchell JOAN EXAM DATE: 2018 EXAM: XR LUMBAR AP/LAT CLINIC AL INFORM ATION: Postop erativ e. IMAGES PROVID ED: AP, latera l, and coned- down views of the lumbar spine. COMPAR KRUPA: None. FINDIN GS AND IMPRES ALISSA: Spinal fusion is noted at T11-S2 level with pedicu lar screws and connec ting rods. Surgic al hardwa re is satisf actori ly placed . No eviden ce of loosen ing or infect ion is seen. Other levels are normal . Interp reted By: Otilia Sommer MD Electr onical ly Signed By: Otilia Sommer MD on 019 3:03 PM [email or web address] [facility] Radiology [address], [address], 12/17/2018 12:30:08 12/15/19 19 12/14/2018 XR, thora cic spine , 2 view [place] [id number] George echevarria Name: LIONEL echevarria : [address] George echevarria Orderi ng Provid er: BILLY Mitchell JOAN EXAM DATE: 2018 EXAM: XR THORAC IC AP/LAT CLINIC AL INFORM ATION: Back pain. IMAGES PROVID ED: AP, and latera l views of the thorac ic spine. COMPAR KRUPA: None. FINDIN GS AND IMPRES ALISSA: Surgic al hardwa re is seen in the lower thorac ic spine for fusion . Degene rative change s are seen at other levels with anteri or and latera l osteop hytes and disc space reduct ion. Interp reted By: Otilia Sommer MD Electr onical ly Signed By: Otilia Sommer MD on 3:05 PM [email or web address] [facility] Radiology [facility] [address] [place], [address], 12/17/2018 12:30:08 Result Notes None recorded. Problems Name Problem SNOMED Code Status Onset Date Resolution Date Notes Provider Name and Address Organization Details Recorded Time Spondylol isthesis 050954238 Active 2014 From Automated Load;Provi suzan: Douglas, Fang;Sta tus: Active Not Available [facility] 6 07:38:10 Thigh pain 58679686 Active 2015 From Automated Load;Provi suzan: Eddie Mcnulty;St atus: Active Not Available [facility] 6 07:38:10 Notes:Some problems listed i n Document: #[id number] could not be added to this patient's chart. Please review this document and add these problems to the patient's chart manually as needed. Problem Notes None recorded. Procedures Surgical History Date Name Laterality Status Provider Name and Address Organization Details Recorded Time 01/08/20 24 Destruction Premalignant Lesion(s) completed Anusha Huynh [facility] 01/08/2024 11:09:38 03/10/20 18 Back Surgery completed Ebonie Garcia [facility] 03/23/2018 10:45:09 06/06/20 15 Back Surgery completed Ebonie Garcia [facility] 03/23/2018 10:44:27 Unlisted px accessory sinus completed Gloria Chilel [facility] 09/26/2016 10:19:44 Imaging Results Imaging Date Name Status LastModified by Organiz ation Details LastModified Time 03/23/2018 XR, lumbosacral spine, 2 or 3 view completed [address], [address], 03/25/2018 08:25:01 03/23/2018 XR, thoracic spine, 2 view completed [address], [address], 03/25/2018 08:25:00 04/13/2018 XR, lumbosacral spine, 2 or 3 view completed [address] Rad[address], [address], 04/13/2018 17:39:27 04/13/2018 XR, thoracic spine, 2 view completed [email or web address] [facility] Radiology [facility] [address] [place] [address], [address], 04/13/2018 17:38:58 06/15/2018 XR, lumbosacral spine, 2 or 3 view completed [email or web address] [facility] Radiology [address], [address], 06/18/2018 18:03:55 06/15/2018 XR, [facility], [facility] Radiology [address], [address], 06/18/2018 18:03:55 12/14/2018 XR, lumbosacral spine, 2 or 3 [facility] Radiology [address], [address], 12/17/2018 12:30:08 12/14/2018 XR, thoracic spine, 2 [facility] Radiology [address], [address], 12/17/2018 12:30:08 Procedure Notes None recorded. Medical Equipment None Reported. Allergies Allergen ID Allergen Name Allergen Category Reaction Reaction Severity Criticality Documentation Date Start Date Code Code System Note Provider Name and Address Organization Details Recorded Time 377812 Product containin g penicilli n (product) medicatio n Not available Not available Not available 07/12/20162013 00211 8001 SNOMED Comme nt: Creat ed By: Kiko sky Date: 014 2:04: 02 PM; Not Available [facility] 6 03:13:49 [id number] dexametha sone medicatio n Not available Not available Not available 07/12/20162013 3264 RxNorm Comme nt: Creat ed By: Kiko alexander;Cre ated Date: 014 2:05: 18 PM; Not Available [facility] 6 03:13:49 [id number] Celebrex medicatio n Not available Not available Not available 07/12/20162013 31456 7 RxNorm Comme nt: Creat ed By: Kiko alexander;Cre ated Date: 2:05: 29 PM; Not Available [facility] 6 03:13:49 [id number] bacitraci n / neomycin / polymyxin B / pramoxine medicatio n Not available Not available Not available 07/12/20162013 38421 0 RxNorm Comme nt: Creat ed By: Kiko alexander;Cre ated Date: 014 2:04: 18 PM; Not Available [facility] 6 05:00:15 Medications Name Sig Start Date Stop Date Status Note LastModified by Organization Details LastModified Time Prescripti on - Prior Authorizat ion Request active Not Available Not Available Not Available latanopros t 0.005 % eye drops active Medication Descriptio n: latanopros t ophthalmic ; Route:opht halmic; refills:0 Not Available Not Available Not Available Percocet 7.5 mg-325 mg tablet Take 1 tablet 4 times a day by oral route as needed. 2017 active Not Available Not Available Not Avai lable gabapentin 600 mg tablet take 1.5 tabs tid 2017 active called into pharmacy Not Available Not Available Not Available Neurontin 300 mg capsule Every night at bedtime 2015 active Duration: 90 days;Instr uctions: ok to take in addition to current dose;Frequ ency: qhs;Medica tion Descriptio n: gabapentin ; Dosage:1; Route:oral ; refills:0; Quantity:9 0 capsule Not Available Not Available Not Available Multiple Vitamin capsule Daily active Duration: 30 days;Frequ ency: daily;Medi cation Descriptio n: multivitam in; Dosage:1; Route:oral ; refills:3; Quantity:1 00 capsule Not Available Not Available Not Available citalopram 10 mg tablet Daily active Frequency: daily;Medi cation Descriptio n: citalopram ; Dosage:1; Route:oral ; refills:0 Not Available Not Available Not Available lisinopril 20 mg tablet Bedtime active Duration: 30 days;Frequ ency: hs;Medicat ion Descriptio n: lisinopril ; Dosage:1; Route:oral ; refills:5; Quantity:3 0 tablet Not Available Not Available Not Available Medrol (Emil) 4 mg tablets in a dose pack Take 1 dose pk by oral route as directed . 2017 active Not Available Not Available Not Avai lable omeprazole 40 mg capsule,de layed release Daily active Frequency: daily;Medi cation Descriptio n: omeprazole ; Dosage:1; Route:oral ; refills:0 Not Available Not Available Not Available Valium 5 mg tablet Take 1 tablet twice a day by oral route as needed. 2017 active Not Available Not Available Not Avai lable levothyrox ine 50 mcg tablet Daily active Frequency: daily;Medi cation Descriptio n: levothyrox ine; Dosage:1; Route:oral ; refills:0 Not Available Not Available Not Available Acuprin 81 mg tablet,del ayed release active Duration: 10 days;Medic ation Descriptio n: aspirin; Route:oral ; refills:0; Quantity:3 0 tablet Not Available Not Available Not Available Advair Diskus 250 mcg-50 mcg/dose powder for inhalation Two times a day active Duration: 30 days;Frequ ency: bid;Medica tion Descriptio n: fluticason e-salmeter ol; Dosage:1 inhalation ; Route:inha lation; refills:0; Quantity:1 powder Not Available Not Available Not Available montelukas t 10 mg tablet Daily active Frequency: daily;Medi cation Descriptio n: montelukas t; Dosage:1; Route:oral ; refills:0 Not Available Not Available Not Available Lily Dale 10 mg-325 mg tablet Take 1 tablet every 4-6 hours by oral route as needed. 2017 active Not Available Not Available Not Avai lable furosemide 20 mg tablet Two times a day active Duration: 30 days;Frequ ency: bid;Medica tion Descriptio n: furosemide ; Dosage:1; Route:oral ; refills:0; Quantity:6 0 tablet Not Available Not Available Not Available gabapentin 100 mg capsule Two times a day active Frequency: bid;Medica tion Descriptio n: gabapentin ; Dosage:1; Route:oral ; refills:0 Not Available Not Available Not Available Lily Dale 7.5 mg-325 mg tablet Take 1 tablet every 6 hours by oral route as needed. 2017 active Not Available Not Available Not Avai lable Lily Dale 5 mg-325 mg tablet Take 1 tablet 3 times a day by oral route as needed. 2017 active Not Available Not Available Not Avai lable cyclobenza french 5 mg tablet Take 1 tablet 3 times a day by oral route as needed. 2016 active Not Available Not Available Not Avai lable Vitamin B-12 active Duration: 10 days;Medic ation Descriptio n: cyanocobal ruiz; Route:oral ; refills:0; Quantity:3 0 tablet Not Available Not Available Not Available calcium active Medication Descriptio n: calcium carbonate; Route:oral ; refills:0 Not Available Not Available Not Available Fish Oil active Medication Descriptio n: omega-3 polyunsatu rated fatty acids; Route:oral ; refills:0 Not Available Not Available Not Available ProAir HFA 90 mcg/actuat ion aerosol inhaler active Medication Descriptio n: albuterol; Route:inha lation; refills:0 Not Available Not Available Not Available vitamin E 15 unit/0.3 mL oral drops active Medication Descriptio n: vitamin E; Route:oral ; refills:0; Quantity:1 capsule Not Available Not Available Not Available PreserVisi on Lutein 226 mg-90 mg-0.8 mg-5 mg capsule active Medication Descriptio n: multivitam in with minerals; Route:oral ; refills:0 Not Available Not Available Not Available Vitamin D3 50 mcg (2,000 unit) tablet active Medication Descriptio n: cholecalci ferol; Route:oral ; refills:0 Not Available Not Available Not Available Vitals Date Recorded Body height Body mass index (BMI) Body weight Systolic blood pressure Diastolic blood pressure Provider Name and Address Organization Details Last Updated DateTime 04/13/2018 167.64 cm 30.3 kg/m2 29399.37 g 132 mm[Hg] 80 mm[Hg] Gloria Chilel [facility] 8 13:33:42 Date Recorded Body height Body mass index (BMI) Body weight Systolic blood pressure Diastolic blood pressure Provider Name and Address Organization Details Last Updated DateTime 06/15/2018 167.64 cm 30.3 kg/m2 92763.37 g 126 mm[Hg] 82 mm[Hg] Gloria Chilel [facility] 8 13:08:58 Date Recorded Body height Body mass index (BMI) Body weight Systolic blood pressure Diastolic blood pressure Provider Name and Address Organization Details Last Updated DateTime 12/14/2018 167.64 cm 30.3 kg/m2 11877.37 g 126 mm[Hg] 82 mm[Hg] Gloria Chilel [facility] 9 14:15:28 Social History Question Answer Notes LastModified by Organizat ion Details LastModified Time Tobacco Smoking Status Former Smoker Gloria Chilel [facility] 09/26/2016 10:19:30 What Was The Date Of Your Most Recent Tobacco Screening? 12/14/2018 Information n ot available 10/05/2019 Sex: Unknown Functional Status None recorded. Mental Status None recorded. Family History Relationship Description Onset Age of this Age Resolved Age Notes LastModified by Organization Details LastModified Time Unspecified Relation Myocardial infarction [email or web address] Not available 04/2017 10:17:27 Unspecified Relation Heart disease [email or web address] Not available 09/26 10:17:35 Unspecified Relation Hypertensive disorder [email or web address] Not available 09/26 10:17:42 Unspecified Relation Hyperlipidem ia [email or web address] Not available 09/26 10:17:54 Unspecified Relation Osteoporosis [email or web address] Not available 0 09/26/2016 10:18:12 Unspecified Relation Kidney disease [email or web address] Not available 09/26 10:18:26 Medical History Condition Response Asthma Y Thyroid Disorder Y High Cholesterol Y Osteoporosis/Osteopenia Y Sleep Apnea Y Hypertension Y Gynecological HistoryNo gynecological history recorded. Obstetrics History GPAL:G 0 P 0 0 0 0 Past Encounters Encounter ID Performer Location Encounter Start Date Encounter Closed Date Diagnosis/Indication Diagnosis SNOMED-CT Code Diagnosis ICD10 Code Diagnosis Note [id number] EDDIE MCNULTY MD [facility] [address] [place] [address] 09/26/2016 09:18:16 09/26/2016 15:45:34 Spinal stenosis of lumbar region 70034663 M48.06 Spondylolisthesis 869790 003 M43.10 [id number] EDDIE MCNULTY MD [facility] [address] [place] [address] 11/18/2016 10:33:45 11/18/2016 11:15:12 [id number] EDDIE MCNULTY MD [facility] [address] [place] [address] 12/09/2016 13:18:44 12/10/2016 15:58:37 Spondylolisthesis 839167037 M43.10 [id number] [facility] [address] [place] [address] 02/10/2017 10:20:34 02/12/2017 10:49:41 Spondylolisthesis 598228874 M43.10 [id number] EDDIE [facility]ULT[facility] [address] [place] [address] 06/19/2017 10:58:53 06/19/2017 12:18:49 Low back pain 145532909 M54.5 [id number] TIARRA CORBIN PA-C [facility] [address] [place] [address] 01/22/2018 13:09:53 01/22/2018 14:30:04 Low back pain 900101026 M54.5 72F with AoC low back pain with history of L2-iliac fusion by Dr. Mcnulty. We will need to assess the patients hardware and look for any fractures. I will order a CT scan of the lumbar spine as well as flexion extension xrays. I will Rx a steroid taper for her symptoms. We will be in contact with her once we get the images with a treatment plan. If these images show no acute process, consider referral to pain managment for injection, or MRI to look for occult fracture. pt agrees with this plan. [id number] [facility] [address] [place] [address] 02/05/2018 12:57:47 02/05/2018 14:41:13 Spondylolisthesis 779240506 M43.10 [id number] EDDIE MCNULTY MD [facility]OSURG [facility] [address] [place] [address] 03/23/2018 10:24:53 03/23/2018 10:53:32 [id number] EDDIE MCNULTY MD NEUROSURG [facility] [address] [facility] [address] [place] [address] 04/13/2018 13:00:58 04/13/2018 16:14:57 Lumbar disc prolapse with radiculopathy 629638153 M51.16 [id number] LOLA GALE PA-C NEUROSURG [facility] [address] [facility] [address] [place] [address] 06/15/2018 12:40:20 06/19/2018 16:09:34 Postoperative care [id number] Z48.89 Here today for a scheduled post-op visit. She is s/p T11- Iliac fusion with Dr. Mcnulty on 03/10/18. Xrays reviewed showing good placement of the hardware without evidence of loosening. She was provided with a printed copy. She is slowly making progress. She is requiring only 1 norco 5 mg QAM and is ambulating with a cane instead of a rolling walker like at her last visit. Dr. Mcnulty explained the R>L anterior burciaga and calf pain likely related to nerve damage prior to surgery. She will increase her gabapentin from 300 BID and 600 QHS to 300 QAM, 600 in the afternoon, and 600 QHS for the nerve pain. She can began taking advil and aleve as needed instead of the norco 5mg QAM. She is scheduled to start outpatient PT on June 18. She should continue water therapy and silver sneakers. She can increase her lifting requiremen ts from 3 pounds to 15 pounds. She should still minimize bending of lumbar spine, and instead bend with her hips. She will follow up with us in 6 months with a/p and lateral lumbar and thoracic xrays before to evaluate her fusion. If doing well at that visit, we may release her from our care. She knows to call with any questions, concerns, or medication refills. All of her questions were answered to her satisfacti on and she is happy with the plan. The patient was seen and examined by Dr. Mcnulty and myself. He agrees with the plan as stated above. [id number] LOLA GALE PA-C [facility] [address] [facility] [address] [place] [address] 12/14/2018 13:35:37 12/15/2018 15:08:14 Low back pain [id number] M54.5 Mrs. Venegas is here today status post T11- Iliac fusion with Dr. Mcnulty on 03/10/18. She still experience s daily low back and bilateral leg pain, but her symptoms are much improved since her last visit with us. She states she is able to rise from a seated position much easier than her last visit with us. Lumbar and thoracic x-rays reviewed showing good placement of the surgical hardware without evidence of complicati on. She was provided with a printed copy. Dr. Mcnulty explained that there are no more lifting restrictio ns from our office. She should walk is much as possible. She's going to continue to go to silver sneakers twice per week. She knows to call us with any questions or concerns in the future. We'll release her from our care at this point. The patient was seen and examined by Dr. Mcnulty and myself. He agrees with the plan as stated above. [id number] RONALD HERNANDEZ MD [address] [address] 01/08/2024 10:34:41 01/08/2024 11:20:16 Seborrheic keratosis [id number] L82.1 nature of diagnosis discussed. 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 Has been present for years, not bothersome . Tried topicals w/o improvemen t. No great treatmentf /up with changes or concerns Actinic keratosis [address] todayNo wound care givenFup with change or concern Melanocyti c nevus of skin 441676764 D22.72 nature of diagnosis discussed. Mole looks benign. See me with changef/up with changes or concerns History of malignant neoplasm of skin 060514863 Z85.828 L90.5 nature of diagnosis discussedf /up with changes or concerns Health Concerns Section Related Observation LastModified by Organization Detai ls LastModified Time None Recorded Concern Status LastModified by Organization Details LastModified Time None Recorded Advance Directives Directive None Recorded Payers Insurance Date Sequence Insurance Name Policy Number Policy Edwards Covered Member ID Edwards Member ID Guarantor Name 01/14/2024 1 [facility] (MEDICARE REPLACEMENT/A DVANTAGE - PPO) [id number] Lionel Venegas [id number] Lionel Venegas Notes Date Note Type Note Provider Name and Address Organization Details Recorded Time 04/13/2018 text/html Ms. Venegas reports occasional leg pain, but mostly back pain. She is ambulating with a walker except for using a cane at home. She was discharged from inpatient rehab last week and plans on starting home health PT this week. She continues to wear her brace. She has noticed a small knot on her lower right abdomen that she was concerned about. She notices today that it has decreased in size since she first noticed it. ATA PIERCE PA-C [address] [place] [address], [phone], [facility] 04/13/2018 15:16:55 06/15/2018 text/html Mrs. Venegas is her e today for a scheduled post-op visit. She is s/p T11- Iliac fusion with Dr. Mcnulty on 03/10/18. She reports overall her back pain is improved since surgery, but she still is experiencing R>L anterior lower leg and calf pain. She reports this pain is 7/10 and intermittent, sharp and shooting in nature. Better with gabapentin. She has been working with OT and PT at home and has been to 3 sessions of water aerobics. She is still c/o of swelling in her BL legs since surgery. She has been to her PCP who increased her lasix and potassium, has been wearing compression hose, and elevating her legs in her new recliner which helps. She states it takes about 30 minutes to put on her compression hose as her back is stiff and she does not have much flexibility in her hips. She is still taking 1 norco 5 mg QAM. Denies b/b incontinence, saddle paresthesias, or gait disturbance. She presents today with a/p and lateral thoracic and lumbar xrays. LOLA GALE PA-C [address] [place], [address], [facility] 06/16/2018 08:44:41 12/14/2018 text/html Mrs. Venegas is her e today status post T11- Iliac fusion with Dr. Mcnulty on 03/10/18. She still experiences right greater than left bilateral lower extremity swelling and anterior lower leg and calf pain. She also still experiencing left greater than right low back pain. He states this is much better than her last visit with us. She has been going to physical therapy and has been ambulating more. Denies b/b incontinence, saddle paresthesias, or gait disturbance. She presents today with a/p and lateral thoracic and lumbar xrays. LOLA GALE PA-C [address] [place], [phone], [facility] 12/14/2018 14:40:21 01/08/2024 text/html Patient presents with skin lesion.Location: mole between breast, back , LL ankleOnset/Timing: a month or so ago RONALD HERNANDEZ MD [address] [place] [address], [phone], [facility] 01/08/2024 11:32:46 OBGyn Episode No OBEpisode recorded.
--- NOTE | 2024-12-27 14:29 | MM_ITS ---
PROCEDURE INFORMATION: Exam: MG Bilateral Screening 3D Mammography Exam date and time: 12/27/2024 2:42 PM Age: 79 years old Clinical indication: Screening mammogram TECHNIQUE: Imaging protocol: Bilateral Screening tomosynthesis and 2D mammography including computer-aided detection (CAD) when performed. COMPARISON: 1. MG MM DIG MAMM DX UNILAT LT CAD 12/09/2023 2:47 PM 2. MG MM DIG SCREENING MAMM BI W/CAD 11/27/2023 9:57 AM 3. MG MM DIG SCREENING MAMM BI W/CAD 07/09/2022 1:29 PM 4. MG MM DIG SCREENING MAMM BI W/CAD 06/27/2021 4:09 PM FINDINGS: MAMMOGRAPHY: Breast composition: There are scattered areas of fibroglandular density. Mass: Stable upper inner posterior previously characterized subcentimeter cystic structure. No new or suspicious mass has developed Architectural distortion: No new or suspicious architectural distortion. Calcifications: No new or suspicious calcifications are present Asymmetric density: No new or suspicious asymmetric density is present Skin thickening: None. Axillary adenopathy: None. IMPRESSION: No mammographic evidence of malignancy. Recommend annual screening mammography unless otherwise clinically indicated. ASSESSMENT: BI-RADS category 2: Benign.
== END 2024-12-27 23:59 | disposition home or self-care (01) ==
PROVIDERS: PCP Family Medicine; Visit Provider Nurse Practitioner Family
DX: Z12.31 Encounter for screening mammogram for malignant neoplasm of breast (principal); R06.09 Other forms of dyspnea
CPT/HCPCS: 77063; 77067; 87070; 87205

== ENCOUNTER 2025-01-18 13:37 | Outpatient (CLI) | payer MEDICARE, SELFPAY ==
--- NOTE | 2025-01-18 14:15 | US_ITS ---
FINAL REPORT CLINICAL HISTORY: Decreased Pedal Pulses, previous smoker, HTN, pre-diabetes, hx TIA, bilateral claudication, bilateral rest pain. FINDINGS: ANKLE-BRACHIAL PRESSURE INDICES Pressure indices are as follows: RIGHT LOWER EXTREMITY: Ankle-brachial pressure index: 1.05 Comments: Normal LEFT LOWER EXTREMITY: Ankle-brachial pressure index: 1.02 Comments: Normal IMPRESSION: No evidence of significant obstructive peripheral vascular disease of the lower extremities Reviewed, Interpreted and Dictated by Tamra Aguilar MD Transcribed by Cassie Walter Authenticated and [facility]
== END 2025-01-18 23:59 | disposition home or self-care (01) ==
LOC: RT 13:37
PROVIDERS: PCP Family Medicine; Visit Provider Nurse Practitioner
DX: I73.9 Peripheral vascular disease, unspecified (principal); R09.89 Other specified symptoms and signs involving the circulatory and respiratory systems; I10 Essential (primary) hypertension; R73.03 Prediabetes; Z87.891 Personal history of nicotine dependence
CPT/HCPCS: 93923

== ENCOUNTER 2025-01-24 14:11 | Outpatient (CLI) | payer MEDICARE, SELFPAY ==
--- OUTSIDE RECORDS SUMMARY | 2024-11-23 07:45 | XMS_ITS ---
Author Organization [facility] Address [address] [facility] [address] [place] [id number] Care Team Providers Care Client Support Consultant Name Role Phone Sid Rodríguez Primary Care Provider [phone] Allergies Allergen (clinical drug ingredient) Drug/Non Drug Allergy documented on EMR Reaction Allergy Type Onset Date Status celecoxib CeleBREX Unknown Drug Allergy Active dexamethasone Dexamethasone Unknown Drug Allergy Active Neosporin Unknown Drug Allergy Active Penicillin Unknown Drug Allergy Active Results Component Value Reference Range Notes CBC Fingerstick (in house) Reviewed date:11/23/2024 12:23:56 PM Interpretation: Performing Lab: Notes/Report: wbc 10.7 3.5 - 10 lym 20.6% 15 - 50 mid 5.6% 2 - 15 gran 73.8% 35 - 80 rbc 4.33 3.5 - 5.5 hgb 13.1 11.5 - 16.5 hct 40.4 35 - 55 mcv 93.2 75 - 100 mch 30.4 25 - 35 mchc 32.6 31 - 38 plat 184 100 - 400 P-Microalbumin/Creatinine, R andom Urine Sample Reviewed date:11/24/2024 04:12:18 PM Interpretation:Normal Performing Lab: Notes/Report: Test performed by [facility] [address] [place] [address] , [address], [place] [address] Reed Owens MD, Veterinary Science Teacher CLIA: [id number] Albumin/Creatinine Ratio, Urine <17.54 0-30 ug/m g Microalbumin, Urine, Random <0.3 Creatinine, Urine 17.1 REASON FOR VISIT poss bronchitis Medications Medication SIG (Take, Route, Frequency, Duration) Notes Start Date End Date Status Singulair 10 MG 1 tab(s) orally once a day at bed time for 90 days Active Rosuvastatin Calcium 20 MG 1 tablet Oral ly Once a day for 90 days 06/14/2024 Active Ipratropium-Albuterol 0.5-2.5 (3) MG/3ML 3 ml by nebulizer 4 times a day as needed 12/23/2018 Active Advair Diskus 250-50 MCG/ACT 1 puff(s) inhaled 2 times a day 10/07/2018 Active Spiriva Respimat 2.5 MCG/ACT 2 puff(s) inhaled once a day Active Levothyroxine Sodium 50 mcg 1 tablet in the morning on an empty stomach Orally Once a day Active Furosemide 40 MG 1 tab(s) orally once a day Active Lisinopril 40 mg 1 tablet Orally Once a day Active Nystatin 861071 UNIT/GM 1 application Ex ternally Twice a day 07/01/2024 Active Ventolin HFA 108 (90 Base) MCG/ACT 2 puff(s) inhaled 4 times a day for 90 days 09/24/2018 Active Gabapentin 300 MG 2 caps orally 3 time s a day for 30 day(s) 05/26/2024 Active Dorzolamide HCl-Timolol Mal 22.3-6.8 MG/ML 1 gtt in each eye 2 times a day for 90 days Active Omeprazole 40 MG 1 cap(s) orally once a day Active Vitamin D3 50 MCG (2000 UT) 2 tab(s) ora lly once a day 01/21/2019 Active XALATAN EYE DROPS Ac tive Loratadine 10 MG 1 tab(s) orally once a day Active Citalopram Hydrobromide 10 MG 1 tab(s) orally once a day for 30 days Active FiberCon 1 TAB(S) ORALLY ONCE A DAY 03/16/2018 Active Biotin 5 MG 1 cap(s) orally once a day (qhs) 03/16/2018 Active Vitamin E 400 UNIT 1 cap(s) orally once a day Active PreserVision AREDS 2+Multi Vit - 1 cap(s) orally twice a day Active Multivitamin - 1 tab(s) orally once a day Active Zithromax Z-Emil 250 MG as directed Orall y once daily for 5 day(s) 11/23/2024 Active Latanoprost 0.005 % 1 gtt in each eye on ce a day (at bedtime) Active Calcium 600 + Minerals 600-200 MG-UNIT 1 tab(s) orally once a day Active predniSONE 20 MG 1 tablet with food o r milk Orally Two times a day for 5 day(s) 11/23/2024 Active Vital Signs Blood pressure systolic 130 mm Hg 11/24/19 25 Blood pressure diastolic 70 mm Hg 025 Heart Rate 94 /min 11/23/2024 Height 64.50 in 11/23/2024 Weight 223.8 lbs 11/23/2024 BMI 37.82 kg/m2 11/23/2024 Encounters Encounter Location Date Provider Diagnosis [facility] [address] [place] [id number] 11/23/2024 Sid Rodríguez COPD exacerbation J4 4.1 and Essential hypertension I10 Assessments Encounter Date Diagnosis (ICD Code) Assessment Notes Treatment Notes Treatment Clinical Notes Section Notes 11/23/2024 COPD exacerbation (ICD-10 - J44.1) 11/23/2024 Essential hypertension (ICD-10 - I10) Plan Of Treatment Medication Medication Name Sig Start Date Stop Date Notes Zithromax Z-Emil 250 MG as directed Orall y once daily for 5 day(s) 11/23/2024 predniSONE 20 MG 1 tablet with food o r milk Orally Two times a day for 5 day(s) 11/23/2024 Next Appt Details Follow Up: via phone to repo rt progress, Reason: Progress Notes * CHRISTELLE VENEGASMARÍA ELENAB:1945 ([age] yo F)Acc No.[id number]:11/23/2024 Progress Notes Patient: LIONEL ENCARNACION Provider: Hector Rodríguez M.D. :1945 A ge:79 Y S ex:Female Date:11/23/2024 Address:[address], [id number] Subjective: * Chief Complaints: * 1 . Poss bronchitis. * HPI: E NT/respiratory: 79 year old female presents with c/o cough P t complains of small amount of thick, white sputum cough. Pt states she had the flu in October and has not been able to get rid of the cough. Pt states she is short of breath and has been using nebulizer machine as well. * ROS: D ERMATOLOGY: no R megan. n o H cody. G ASTROENTEROLOGY: no N ausea. n o V omiting. U ROLOGY: no D ifficulty urinating. n o B lood in urine. 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 * Surgical History: D enies Past Surgical History. * Hospitalization/Major Diagno stic Procedure: D enies Past Hospitalization. * Family History: F ather: 70 yrs, CHF, diagnosed with Heart Disease. M other: 80 yrs, diagnosed with Heart Disease. P aternal Grand Father: . P aternal Grand Mother: . M aternal Grand Father: . M aternal Grand Mother: . C claudette: alive, diagnosed with Cancer. S ibjama: diagnosed with Heart Disease, Cancer. 1 brother(s) , 2 sister(s) . 1 son(s) - healthy. . sisters have passed, pancreatic cancer, skin cancer. * Social History: C URRENT TOBACCO USE S moking Status: P atient does NOT smoke, F ormer Smoker:?Yes started smoking in 1972, pt thinks, Q uit smokin 008. C affeine: yes, occasionally. Exercise: yes. Home smoke detector use: yes. Marital Status: Single. New since last visit: none. Past smoking status: no, Former Smoker: Yes, Quit smokin. Recreational drug use: no. Alcohol: Yes, occasional. * Medications: T aking Latanoprost 0.005 % Solution 1 gtt in each eye once a day (at bedtime) , Taking Calcium 600 + Minerals 600-200 MG-UNIT Tablet 1 tab(s) orally once a day , Taking Multivitamin - Tablet 1 tab(s) orally once a day , Taking PreserVision AREDS 2+Multi Vit - Capsule 1 cap(s) orally twice a day , Taking Vitamin E 400 UNIT Capsule 1 cap(s) orally once a day , Taking Biotin 5 MG Capsule 1 cap(s) orally once a day (qhs) , Taking FiberCon 1 TAB(S) ORALLY ONCE A DAY , Taking Loratadine 10 MG Tablet 1 tab(s) orally once a day , Taking XALATAN EYE DROPS , Taking Vitamin D3 50 MCG (2000 UT) Tablet 2 tab(s) orally once a day , Taking Omeprazole 40 MG Capsule Delayed Release 1 cap(s) orally once a day , Taking Citalopram Hydrobromide 10 MG Tablet 1 tab(s) orally once a day , Taking Dorzolamide HCl-Timolol Mal 22.3-6.8 MG/ML Solution 1 gtt in each eye 2 times a day , Taking Gabapentin 300 MG Capsule 2 caps orally 3 times a day , Taking Ventolin HFA 108 (90 Base) MCG/ACT Aerosol Solution 2 puff(s) inhaled 4 times a day , Taking Nystatin 358435 UNIT/GM Cream 1 application Externally Twice a day , Taking Lisinopril 40 mg Tablet 1 tablet Orally Once a day , Taking Furosemide 40 MG Tablet 1 tab(s) orally once a day , Taking Levothyroxine Sodium 50 mcg Tablet 1 tablet in the morning on an empty stomach Orally Once a day , Taking Spiriva Respimat 2.5 MCG/ACT Aerosol Solution 2 puff(s) inhaled once a day , Taking Advair Diskus 250-50 MCG/ACT Aerosol Powder Breath Activated 1 puff(s) inhaled 2 times a day , Taking Ipratropium-Albuterol 0.5-2.5 (3) MG/3ML Solution 3 ml by nebulizer 4 times a day as needed , Taking Rosuvastatin Calcium 20 MG Tablet 1 tablet Orally Once a day , Taking Singulair 10 MG Tablet 1 tab(s) orally once a day at bed time , Discontinued Tamiflu 75 MG Capsule 1 capsule Orally Twice a day , Discontinued Benzonatate 200 MG Capsule 1 capsule as needed Orally Three times a day , Discontinued Promethazine-DM 6.25-15 MG/5ML Syrup 5 ml as needed Orally every 6 hrs , Medication List reviewed and reconciled with the patient * Allergies: D examethasone, Penicillin, Neosporin, CeleBREX. Objective: * Vitals: W t: 223.8, Temp: 98.3, BP: 130/70, HR: 94, O2 Sat: 90% on RA, Nurse: armin, Ht: 64.50, BMI:37.82. * Examination: E NT/Respiratory: General Appearance: N AD, using a cane to assist with ambulation. Oral cavity : erythema without exudate on pharynx. Heart : RRR. Lungs: g ood air movement, coarse breath sounds due to upper airway congestion, few wheezes. Assessment: * Assessment: 1. C OPD exacerbation - J44.1 (Primary) 2 . E ssential hypertension - I10? Plan: * Treatment: Value Reference Range w bc 10.7 3.5 - 10 * l ym 20.6% 15 - 50 * m id 5.6% 2 - 15 * g ran 73.8% 35 - 80 * r bc 4.33 3.5 - 5.5 * h gb 13.1 11.5 - 16.5 * h ct 40.4 35 - 55 * m cv 93.2 75 - 100 * m ch 30.4 25 - 35 * m chc 32.6 31 - 38 * p lat 184 100 - 400 * Arely Garcia 11/23/2024 12:23:44 PM > , Provider reviewed results while patient in office. 2.?Essential hypertension?LAB: P-Microalbumin/Creatinine, Random Urine Sample (Collection Date & Time - 11/23/2024 12:02 PM)?Normal* Value Reference Range A lbumin/Creatinine Ratio, Urine <17.54 0-30 - ug /mg * C reatinine, Urine 17.1 - mg/dL * M icroalbumin, Urine, Random <0.3 - mg/dL * Arely Garcia 11/24/2024 4:10:40 PM > Pt informed * Procedure Codes: G 2211 Complex e/[place] [address] [place], [address] CAPILLARY BLOOD DRAW, 13903 CBC WITH AUTO DIFF, 3075F SYST BP GE 130 - 139MM HG, 3078F DIAST BP < 80 MM HG * Follow Up: v ia phone to report progress * Billing Information: * Visit Code: 07184 Office Visit, Est Pt., Level 3. * Procedure Codes: G2211 Complex e/[place]. [address] [place] [address] CAPILLARY BLOOD DRAW. 66670 CBC WITH AUTO DIFF. 3075F SYST BP GE 130 - 139MM HG. 3078F DIAST BP < 80 MM HG. * Electronic signature of Sarah Rodríguez MD on 01/24/2025 at 02:15 PM EDT Sign off status: Pending * Provider: Hector Rodríguez M.D. Date: 0 11/23/2024 Generated for [place]ney kelly/Lexi/Zeenatitting on: 0 01/24/2025 02:15 PM EDT History and Physical Notes * HPI (History of Present Illness) Category Sub-Category Detail Notes Category Not es ENT/respiratory cough Pt complains of small amount of thick, white sputum cough. Pt states she had the flu in October and has not been able to get rid of the cough. Pt states she is short of breath and has been using nebulizer machine as well Examination Category Sub-Category Detail Notes Category Not es ENT/Respiratory Oral cavity : erythema without exudate on pharynx Heart : RRR Lungs: good air movement, c oarse breath sounds due to upper airway congestion, few wheezes General Appearance: NAD, using a cane to assist with ambulation
--- OUTSIDE RECORDS SUMMARY | 2024-12-13 09:45 | XMS_ITS ---
Author Organization [facility] Address [address] [facility] [address] [id number] Care Team Providers Care Environmental Science Program Director Name Role Phone Sid Rodríguez Primary Care Provider Gabbie Juarez Unavailable [phone] Allergies Allergen (clinical drug ingredient) Drug/Non Drug [...] tablet Orally Once a day Active Nystatin 490202 UNIT/GM 1 application Ex ternally Twice a [...] [address] [place] [id number] 12/13/2024 Gabbie Juarez Bronchitis J40 and HTN [...] * SUZE VENEGASB:1945 ([age] yo F)Acc No.[id number]:12/13/2024 Progress Notes Patient: LIONEL ENCARNACION Provider: MATT Barrera :1945 A ge:79 Y S ex:Female Date:12/13/2024 Address:[address], [id number] Pcp:Sid Rodríguez Subjective: * Chief Complaints: * [...] A llergies, Depression, Asthma, COPD, Hypertension, Hypothyroidism, 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 * Procedure Codes: G2211 Complex e/[place]. [address] CAPILLARY BLOOD DRAW. 70416 CBC WITH AUTO DIFF. 3074F SYST BP LT 130 MM HG. 3078F DIAST BP < 80 MM HG. * Electronic signature of Nahomy dominguez Juarez APRN on 01/24/2025 at 02:15 PM EDT Sign off status: Pending * Provider: MATT Barrera Date: 0 12/13/2024 Generated for Shawnai robin/Lexi/eTransmitting on: 0 01/24/2025 02:15 PM EDT History [...]
--- OUTSIDE RECORDS SUMMARY | 2024-12-20 09:30 | XMS_ITS ---
Author Organization [facility] Address [address] [place] [id number] Care Team Providers Care Foreign Exchange Dealer Name Role Phone Sid Rodríguez Primary Care Provider Juarez Gabbie Unavailable [phone] Allergies Allergen (clinical drug ingredient) Drug/Non Drug Allergy documented on EMR Reaction Allergy Type Onset Date Status celecoxib CeleBREX Unknown Drug Allergy Active dexamethasone Dexamethasone Unknown Drug Allergy Active Neosporin Unknown Drug Allergy Active Penicillin Unknown Drug Allergy Active Results Component Value Reference Range Notes CBC Venipuncture (in house) Reviewed date:12/21/2024 09:24:10 AM Interpretation: Performing Lab: Notes/Report: wbc 6.3 3.5 - 10 lymph 33.1 15 - 50 mid 8.4 2 - 15 gran 58.5 35 - 80 rbc 4.52 3.5 - 5.5 hgb 13.6 11.5 - 16.5 hct 41.6 35 - 55 mcv 92.0 75 - 100 mch 30.1 25 - 35 mchc 32.6 31 - 38 platlet 291 100 - 400 P-Comprehensive Metabolic Pa carlo (CMP) Reviewed date:12/22/2024 03:10:43 PM Interpretation: Performing Lab: Notes/Report: Test performed by [facility], [employer] [facility] , [address], [place] [address] Reed Owens MD, Padding Machine Operator CLIA: [id number] Sodium 139 135-145 mmol/L Potassium 4.3 3.5-5.3 mmol/L Chloride 99 97-108 mmol/L CO2 31 22-32 mmol/L Glucose 102 65-99 mg/dL BUN 14 8-23 mg/dL Creatinine 0.86 0.50-1.00 mg/dL Calcium 10.2 8.6-10.4 mg/dL eGFR by Creatinine 68 >59 mL/min/1.73m2 Protein 7.1 6.0-8.3 g/dL Albumin 4.4 3.5-5.3 g/dL Alkaline Phosphatase 123 35-121 IU/L ALT (SGPT) 17 <5-47 IU/L AST (SGOT) 20 <5-40 IU/L Bilirubin, Total 0.3 <0.2-1.2 mg/dL A/G Ratio 1.6 1.1-2.5 CXR Reviewed date:12/22/2024 03:12:34 PM Interpretation:atelectasis Performing Lab: Notes/Report: atelectasis Mammogram Reviewed date:12/31/2024 04:32:33 PM Interpretation: Performing Lab: Notes/Report: REASON FOR VISIT AWV & bronchitis fu Medications Medication SIG (Take, Route, Frequency, Duration) Notes Start Date End Date Status XALATAN EYE DROPS Ac tive Vitamin E 400 UNIT 1 cap(s) orally once a day Active Citalopram Hydrobromide 10 MG 1 tab(s) orally once a day Active Omeprazole 40 MG 1 cap(s) orally once a day Active Biotin 5 MG 1 cap(s) orally once a day (qhs) 03/16/2018 Active PreserVision AREDS 2+Multi Vit - 1 cap(s) orally twice a day Active Multivitamin - 1 tab(s) orally once a day Active Spiriva Respimat 2.5 MCG/ACT 2 puff(s) inhaled once a day Active Calcium 600 + Minerals 600-200 MG-UNIT 1 tab(s) orally once a day Active Latanoprost 0.005 % 1 gtt in each eye on ce a day (at bedtime) Active Singulair 10 MG 1 tab(s) orally once a day at bed time Active Loratadine 10 MG 1 tab(s) orally once a day Active Advair Diskus 250-50 MCG/ACT 1 puff(s) inhaled 2 times a day 10/07/2018 Active Ipratropium-Albuterol 0.5-2.5 (3) MG/3ML 3 ml by nebulizer 4 times a day as needed 12/23/2018 Active Cefuroxime Axetil 500 MG 1 tablet Orally every 12 hrs for 7 days 12/13/2024 Not-Taking Rosuvastatin Calcium 20 MG 1 tablet Orally Once a day 06/14/2024 Active Levothyroxine Sodium 50 mcg 1 tablet in the morning on an empty stomach Orally Once a day Active Benzonatate 200 MG 1 capsule as needed Orally Three times a day prn 12/13/2024 Active Nystatin 497267 UNIT/GM 1 application Externally Twice a day 07/01/2024 Active Furosemide 40 MG 1 tab(s) orally once a day Active Gabapentin 300 MG 2 caps orally 3 time s a day 05/26/2024 Active Lisinopril 40 mg 1 tablet Orally Once a day Active Vitamin D3 50 MCG (2000 UT) 2 tab(s) orally once a day 01/21/2019 Active Ventolin HFA 108 (90 Base) MCG/ACT 2 puff(s) inhaled 4 times a day 09/24/2018 Active FiberCon 1 TAB(S) ORALLY ONCE A DAY 03/16/2018 Active Dorzolamide HCl-Timolol Mal 22.3-6.8 MG/ML 1 gtt in each eye 2 times a day Active Problems Problem Type SNOMED Code ICD Code Onset Dates Problem Status W/U Status Risk Notes Problem [id number] BMI 37.0-37.9, adult (Z68.37) Active confirmed Vital Signs Blood pressure systolic 120 mm Hg 12/21/19 25 Blood pressure diastolic 68 mm Hg 025 Heart Rate 96 /min 12/20/2024 Height 64.50 in 12/20/2024 Weight 224.4 lbs 12/20/2024 BMI 37.92 kg/m2 12/20/2024 Encounters Encounter Location Date Provider Diagnosis [facility] [address] [facility] [address] [place], [place] [id number] 12/20/2024 Gabbie Juarez Acute bronchitis J20 .9 ; Adult general medical examination Z00.00 ; Acquired hypothyroidism E03.9 ; Essential hypertension I10 ; Chronic obstructive pulmonary disease, unspecified COPD type J44.9 ; Encounter for screening mammogram for breast cancer Z12.31 ; Neuropathy G62.9 ; GERD (gastroesophageal reflux disease) K21.9 ; Vitamin D deficiency E55.9 ; Peripheral edema R60.9 ; Macular degeneration H35.30 ; Chronic depression F32.9 ; Glaucoma H40.9 ; Osteopenia M85.80 ; Mixed hyperlipidemia E78.2 ; Allergic rhinitis J30.9 ; Primary osteoarthritis of both knees M17.0 and BMI 37.0-37.9, adult Z68.37 Assessments Encounter Date Diagnosis (ICD Code) Assessment Notes Treatment Notes Treatment Clinical Notes Section Notes 12/20/2024 Acute bronchitis (ICD-10 - J20.9) 12/20/2024 Adult general medical examination (ICD-10 - Z00.00) Patient instructed to return to office Annually for Annual Wellness Visits to include annual screenings of Pain assessment, Functional Ability assessment, Cognitive Ability assessment, Fall Risk assessment, Depression screening and Bladder control screening. 12/20/2024 Acquired hypothyroidism (ICD-10 - E03.9) 12/20/2024 Essential hypertension (ICD-10 - I10) 12/20/2024 Chronic obstructive pulmonary disease, unspecified COPD type (ICD-10 - J44.9) 12/20/2024 Encounter for screening mammogram for breast cancer (ICD-10 - Z12.31) 12/20/2024 Neuropathy (ICD-10 - G62.9) 12/20/2024 GERD (gastroesophageal reflux disease) (ICD-10 - K21.9) 12/20/2024 Vitamin D deficiency (ICD-10 - E55.9) 12/20/2024 Peripheral edema (ICD-10 - R60.9) 12/20/2024 Macular degeneration (ICD-10 - H35.30) 12/20/2024 Chronic depression (ICD-10 - F32.9) 12/20/2024 Glaucoma (ICD-10 - H40.9) 12/20/2024 Osteopenia (ICD-10 - M85.80) 12/20/2024 Mixed hyperlipidemia (ICD-10 - E78.2) 12/20/2024 Allergic rhinitis (ICD-10 - J30.9) 12/20/2024 Primary osteoarthritis of both knees (ICD-10 - M17.0) 12/20/2024 BMI 37.0-37.9, adult (ICD-10 - Z68.37) Plan Of Treatment Medication Medication Name Sig Start Date Stop Date Notes XALATAN EYE DROPS Vitamin E 400 UNIT 1 cap(s) orally once a day Citalopram Hydrobromide 10 MG 1 tab(s) orally once a day Omeprazole 40 MG 1 cap(s) orally once a day PreserVision AREDS 2+Multi Vit - 1 cap(s ) orally twice a day Multivitamin - 1 tab(s) orally once a day Calcium 600 + Minerals 600-2 00 MG-UNIT 1 tab(s) orally once a day Latanoprost 0.005 % 1 gtt in each eye on ce a day (at bedtime) Loratadine 10 MG 1 tab(s) orally once a day Advair Diskus 250-50 MCG/ACT 1 puff(s) i nhaled 2 times a day 10/07/2018 Rosuvastatin Calcium 20 MG 1 tablet Orally Once a day 05/19 Levothyroxine Sodium 50 mcg 1 tablet in the morning on an empty stomach Orally Once a day Benzonatate 200 MG 1 capsule as needed Orally Three times a day prn 12/13/2024 Furosemide 40 MG 1 tab(s) orally once a day Gabapentin 300 MG 2 caps orally 3 time s a day 05/26/2024 Lisinopril 40 mg 1 tablet Orally Once a day Ventolin HFA 108 (90 Base) MCG/ACT 2 puff(s) inhaled 4 times a day 09/24/2018 Dorzolamide HCl-Timolol Mal 22.3-6.8 MG/ML 1 gtt in each eye 2 times a day Treatment Notes Assessment Notes Adult general medical examination Patien t instructed to return to office Annually for Annual Wellness Visits to include annual screenings of Pain assessment, Functional Ability assessment, Cognitive Ability assessment, Fall Risk assessment, Depression screening and Bladder control screening. Next Appt Details Follow Up: 6 Months,and prn, Reason: Progress Notes * SUZE VENEGASB:1945 ([age] yo F)Acc No.[id number]:12/20/2024 Annual Wellness Visit Patient: CHRISTELLE ENCARNACIONA Provider: MATT Barrera :1945 A ge:79 Y S ex:Female Date:12/20/2024 Address:[facility] [address] , [id number] Pcp:Sid Rodríguez Subjective: * Chief Complaints: * 1 . AWV & bronchitis fu. * HPI: H PI: 79 year old female presents with c/o Patient is here today for?Pt is here today for a annual wellness visit and bronchitis f/u. Pt sts she is better, but sts she does still have a cough . * ROS: D ERMATOLOGY: no R megan. n o H cody. G ASTROENTEROLOGY: no N ausea. n o V omiting. O PTHALMOLOGY: Negative for d enies vision issues. U ROLOGY: no D ifficulty urinating. n o B lood in urine. 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 [facility], macular degeneration, Dx: 2011, Colon polyps, [...] TAB(S) ORALLY ONCE A DAY , Taking XALATAN EYE DROPS , Taking [...] 4 times a day , Taking Nystatin 862886 UNIT/GM Cream 1 application Externally Twice a day , Taking Lisinopril 40 mg Tablet 1 tablet Orally Once a day , Taking Furosemide 40 MG Tablet 1 tab(s) orally once a day , Taking Levothyroxine Sodium 50 mcg Tablet 1 tablet in the morning on an empty stomach Orally Once a day , Taking Rosuvastatin Calcium 20 MG Tablet 1 tablet Orally Once a day , Taking Benzonatate 200 MG Capsule 1 capsule as needed Orally Three times a day prn , Taking Loratadine 10 MG Tablet 1 tab(s) orally once a day , Taking Advair Diskus 250-50 MCG/ACT Aerosol Powder Breath Activated 1 puff(s) inhaled 2 times a day , Taking Singulair 10 MG Tablet 1 tab(s) orally once a day at bed time , Taking Ipratropium-Albuterol 0.5-2.5 (3) MG/3ML Solution 3 ml by nebulizer 4 times a day as needed , Taking Spiriva Respimat 2.5 MCG/ACT Aerosol Solution 2 puff(s) inhaled once a day , Not-Taking Cefuroxime Axetil 500 MG Tablet 1 tablet Orally every 12 hrs , Medication List reviewed and reconciled with the patient * Allergies: D examethasone, Penicillin, Neosporin, CeleBREX. Objective: * Vitals: W t: 224.4, Temp: 98.0, BP: 120/68, HR: 96, Nurse: mmh, Ht: 64.50, BMI:37.92. * P ast Orders: L ab:P-Comprehensive Metabolic Panel (CMP) (Order Date - 12/20/2024) (Collection Date & Time - 12/20/2024 02:51 PM) Value Reference Range A/G Ratio 1.6 1.1-2.5 - Albumin 4.4 3.5-5.3 - g/dL Alkaline Phosphatase 123 H 35-121 - IU/L ALT (SGPT) 17 <5-47 - IU/L AST (SGOT) 20 <5-40 - IU/L Bilirubin, Total 0.3 <0.2-1.2 - mg/dL BUN 14 8-23 - mg/dL Calcium 10.2 8.6-10.4 - mg/dL Chloride 99 97-108 - mmol/L CO2 31 22-32 - mmol/L Creatinine 0.86 0.50-1.00 - mg/dL Glucose 102 H 65-99 - mg/dL Potassium 4.3 3.5-5.3 - mmol/L Sodium 139 135-145 - mmol/L Protein 7.1 6.0-8.3 - g/dL eGFR by Creatinine 68 >59 - mL/min/1.73m2 Clinical Info: persistent cough ROOM 4- purple top needed * Examination: G eneral Examination: General Appearance: N AD , appears healthy , alert , pleasant , Color good. HEENT: s clera and conjunctiva clear, PERRLA, TM's normal, translucent. Oral cavity: m ucosa moist and WNL , no erythema. Neck: s upple , no lymphadenopathy , thyroid normal , no carotid bruits. Heart: R RR. Lungs: b ilateral scattered inspiratory/expiratory wheezing. Abdomen: b owel sounds present , soft and nontender. Extremities: S upport stocks on bilaterally. ? * Physical Examination: G ENERAL: Pain Assessment: P ain level: 7, on a scale of 0-10 (with 10 being extreme pain); she has back pain. F unctional Status Assessment: P atient response to question of how often physical health interferes with daily activities: .Occasionally Able to perform ADLs-including meal preparation, grocery shopping, housework, laundry, taking medications or handling finances. Cognitive Status: alert and oriented. Ambulation Status: Fully ambulatory . F all Risk Assessment: I ndependant in ambulation, adequate lighting in home. Patient has NOT fallen or had trouble walking within the past 12 months; sometimes has a balance issue. D epression Screening: D enies depressed mood or anxiety. Describes emotional health as:calm and peaceful. B ladder Control Screening: s mll problem. Assessment: * Assessment: 1. A dult general medical examination - Z00.00 (Primary) 2 . A cute bronchitis - J20.9 3 . A cquired hypothyroidism - E03.9 4 . E ssential hypertension - I10 5 . C hronic obstructive pulmonary disease, unspecified COPD type - J44.9 6 . E ncounter for screening mammogram for breast cancer - Z12.31 7 . N europathy - G62.9 8 . G ERD (gastroesophageal reflux disease) - K21.9 9 . V itamin D deficiency - E55.9 1 0. P eripheral edema - R60.9 1 1. M acular degeneration - H35.30 1 2.?Chronic depression - F32.9 1 3. G laucoma - H40.9 1 4.?Osteopenia - M85.80 1 5. M ixed hyperlipidemia - E78.2 1 6. Allergic rhinitis - J30.9 1 7. P rimary osteoarthritis of both knees - M17.0? 18. B DC 37.0-37.9, adult - Z68.37 Plan: * Treatment: 2. A cute bronchitis Continue Benzonatate Capsule, 200 MG, 1 capsule as needed, Orally, Three times a day prn. ? L AB: CBC Venipuncture (in house) (Collection Date & Time - 12/20/2024) Value Reference Range w bc 6.3 3.5 - 10 * l ymph 33.1 15 - 50 * m id 8.4 2 - 15 * g ran 58.5 35 - 80 * r bc 4.52 3.5 - 5.5 * h gb 13.6 11.5 - 16.5 * h ct 41.6 35 - 55 * m cv 92.0 75 - 100 * m ch 30.1 25 - 35 * m chc 32.6 31 - 38 * p latlet 291 100 - 400 * Dania Mathis 12/20/2024 02:48 :18 PM > Provider reviewed results while patient in office.Gabbie Juarez 12/21/2024 09:24:03 AM > ?Imaging: CXR (Performed Date - 12/20/2024)?atelectasis* persistent coughAnn Magalie zahra 12/22/2024 03:11:45 PM >I spoke with pt and discussed results; to continue with inhalers; will do DB exercises and use IS 3.?Acquired hypothyroidism? Continue Levothyroxine Sodium Tablet, 50 mcg, 1 tablet in the morning on an empty stomach, Orally, Once a day.??4.?Essential hypertension? Continue Lisinopril Tablet, 40 mg, 1 tablet, Orally, Once a day.?LAB: P-Comprehensive Metabolic Panel (CMP) (Collection Date & Time - 12/20/2024 02:51 PM)* Value Reference Range A /G Ratio 1.6 1.1-2.5 - * A lbumin 4.4 3.5-5.3 - g/dL * A lkaline Phosphatase 123 H 35-121 - IU/L * A LT (SGPT) 17 <5-47 - IU/L * A ST (SGOT) 20 <5-40 - IU/L * B ilirubin, Total 0.3 <0.2-1.2 - mg/dL * B UN 14 8-23 - mg/dL * C alcium 10.2 8.6-10.4 - mg/dL * C hloride 99 97-108 - mmol/L * C O2 31 22-32 - mmol/L * C reatinine 0.86 0.50-1.00 - mg/dL * G lucose 102 H 65-99 - mg/dL * P otassium 4.3 3.5-5.3 - mmol/L * S odium 139 135-145 - mmol/L * P rotein 7.1 6.0-8.3 - g/dL * e GFR by Creatinine 68 >59 - mL/min/1.73m2 * Gabbie Juarez 12/22/2024 02:43:10 PM > I spoke with pt and discussed results 5.?Chronic obstructive pulmonary disease, unspecified COPD type? Continue Ventolin HFA Aerosol Solution, 108 (90 Base) MCG/ACT, 2 puff(s), inhaled, 4 times a day; Continue Advair Diskus Aerosol Powder Breath Activated, 250-50 MCG/ACT, 1 puff(s), inhaled, 2 times a day.??6.?Encounter for screening mammogram for breast cancer?Imaging: Mammogram (Performed Date - 12/27/2024)* Analia Bueno 12/20/2024 03:58 :29 PM > faxed to [facility] Gabbie Cristobal 12/31/2024 04:19:38 PM >left Gabbie Horowitz 12/31/2024 04:32:13 PM >I spoke with pt and reported results 7.?Neuropathy? Continue Gabapentin Capsule, 300 MG, 2 caps, orally, 3 times a day.??8.?GERD (gastroesophageal reflux disease)? Continue Omeprazole Capsule Delayed Release, 40 MG, 1 cap(s), orally, once a day.??9.?Vitamin D deficiency? Continue Vitamin E Capsule, 400 UNIT, 1 cap(s), orally, once a day.?? 10.?Peripheral edema? Continue Furosemide Tablet, 40 MG, 1 tab(s), orally, once a day.??11.?Macular degeneration? Continue PreserVision AREDS 2+Multi Vit Capsule, -, 1 cap(s), orally, twice a day.??12.?Chronic depression? Continue Citalopram Hydrobromide Tablet, 10 MG, 1 tab(s), orally, once a day.?? 13.?Glaucoma? Continue Latanoprost Solution, 0.005 %, 1 gtt, in each eye, once a day (at bedtime);?Continue XALATAN EYE DROPS;?Continue Dorzolamide HCl-Timolol Mal Solution, 22.3-6.8 MG/ML, 1 gtt, in each eye, 2 times a day.??14.?Osteopenia? Continue Calcium 600 + Minerals Tablet, 600-200 MG-UNIT, 1 tab(s), orally, once a day.??15.?Mixed hyperlipidemia? Continue Rosuvastatin Calcium Tablet, 20 MG, 1 tablet, Orally, Once a day.?? 16.?Allergic rhinitis? Continue Loratadine Tablet, 10 MG, 1 tab(s), orally, once a day.??17.?Others? Continue Multivitamin Tablet, -, 1 tab(s), orally, once a day.?? * Procedure Codes: G 0439 ANNUAL WELLNESS VST; PPS SUBSQT VST, G2211 Complex e/[place], [address] CBC WITH AUTO DIFF, 1090F PRES/ABSN URINE INCON ASSESS, 3288F FALL RISK ASSESSMENT DOCD, 1170F FXNL STATUS ASSESSED, 1159F MED LIST DOCD IN RCRD, 1003F LEVEL OF ACTIVITY ASSESS, 1036F TOBACCO NON-USER, 3017F COLORECTAL CA SCREEN DOC REV, 4040F PNEUMOC IMM ORDER/ADMIN, 3074F SYST BP LT 130 MM HG, 3078F DIAST BP < 80 MM HG, 1125F AMNT PAIN NOTED PAIN PRSNT * Preventive Medicine: Counseling: E motional health: P atient encouraged to try connecting with family or friends to boost mood. B ladder control: M ethods of controlling or managing leakage of urine discussed. E xercise: P atient advised to start, increase or maintain level of exercise/physical activity. I njury prevention: F all prevention discussed. Discussed need for cane/walker. Potential trip hazards discussed. Immunizations: P neumococcal u p to date. I nfluenza u p to date. C OVID-19 u p to date. Screening / Special Tests: M ammogram R ecent history: 11/27/2023 with additional testing 12/09/2023 recommending annual f/u; annual ordered today. C olonoscopy l ast colonoscopy / Dr Heart 12/2023; to repeat in 5 years, diverticulosis. B one mineral Density R ecent history: 11/27/2023 , osteopenia. L chano cancer screening 1 10/13/2022, recommended annually due to smoking history; AASHISH Dunbar 06/01/2024 with notation of HRCT 06/01/2025 results as follows:CT CHEST: High-resolution images were obtained, as well assupine inspiration and expiration and prone inspiration imagesof the chest. There is linear density present in the lingula,likely scar, unchanged since the prior CT examination. A smallhiatal hernia is present. Mild coronary artery calcificationsare identified. There is streak artifact in the lower chestsecondary to fusion hardware in the lower thoracic and upperlumbar spine. There are advanced changes of osteophytes in thelower thoracic spine. The heart size is normal. There is nopericardial or pleural effusion. No suspicious infiltrate ornodule identified. There is no evidence of bronchiectasis,pulmonary fibrosis, or air trapping.IMPRESSION:Linear density in the lingula, likely scar, unchanged since theprior exam of 2022. There is no evidence of bronchiectasis,pulmonary fibrosis, air trapping, suspicious infiltrate ornodule.. * Follow Up: 6 Months,and prn * Billing Information: * Visit Code: 26346 Office Visit, Est Pt., Level 4. Modifiers: 25 * Procedure Codes: G0439 ANNUAL WELLNESS VST; PPS SUBSQT VST. G2211 Complex e/[place]. [address] CBC WITH AUTO DIFF. 1090F PRES/ABSN URINE INCON ASSESS. 3288F FALL RISK ASSESSMENT DOCD. 1170F FXNL STATUS ASSESSED. 1159F MED LIST DOCD IN RCRD. 1003F LEVEL OF ACTIVITY ASSESS. 1036F TOBACCO NON-USER. 3017F COLORECTAL CA SCREEN DOC REV. 4040F PNEUMOC IMM ORDER/ADMIN. 3074F SYST BP LT 130 MM HG. 3078F DIAST BP < 80 MM HG. 1125F AMNT PAIN NOTED PAIN PRSNT. * Electronic signature of Nahomy Juarez APRN on 01/24/2025 at 02:16 PM EDT Sign off status: Pending * Provider: MATT Barrear Date: 0 12/20/2024 Generated for Cortney kelly/Lexi/Zeenatitting on: 0 01/24/2025 02:16 PM EDT History and Physical Notes * HPI (History of Present Illness) Category Sub-Category Detail Notes Category Not es HPI Patient is here today for Pt is here today for a annual wellness visit and bronchitis f/u. Pt sts she is better, but sts she does still have a cough Physical Examination Category Sub-Category Detail Notes Section Note s GENERAL Pain Assessment: Pain level: 7, on a scale of 0-10 (with 10 being extreme pain); she has back pain Functional Status Assessment: Patient re sponse to question of how often physical health interferes with daily activities: .OccasionallyAble to perform ADLs-including meal preparation, grocery shopping, housework, laundry, taking medications or handling finances.Cognitive Status: alert and oriented.Ambulation Status: Fully ambulatory Fall Risk Assessment: Independant in amb ulation, adequate lighting in home. Patient has NOT fallen or had trouble walking within the past 12 months; sometimes has a balance issue Depression Screening: Denies depressed m ood or anxiety. Describes emotional health as:calm and peaceful Bladder Control Screening: smll problem Examination Category Sub-Category Detail Notes Category Not es General Examination HEENT: sclera and c onjunctiva clear, PERRLA, TM's normal, translucent Heart: RRR Lungs: bilateral scattered inspiratory/expiratory wheezing Abdomen: bowel sounds present , soft and nontender Extremities: Support stocks on bi laterally General Appearance: NAD , appears health y , alert , pleasant , Color good Neck: supple , no lymphade nopathy , thyroid normal , no carotid bruits Oral cavity: mucosa moist and WNL , no erythema
--- OUTSIDE RECORDS SUMMARY | 2025-01-24 14:15 | XMS_ITS | Continuity of Care Document ---
Author Organization [facility] RICKY Alvarado IRWIN Address [address] [place] [address] Care Team Providers Care Enrobing Machine Feeder Name Role Phone [facility] Primary Care Provider Assessment No assessment recorded. Plan of Treatment Reminders Order Date Submit Date Provider Last Modified By Organization Details Last Modified Time Details Appointments FOLLOW UP [facility] 2025 10:30A M RONALD HERNANDEZ MD Not available Not available Not available Lab None recorded . Referral None recorded . Procedures None recorded . Surgeries None recorded . Imaging None recorded . Medication Orders None recorded . Patient TargetsNo targets recorded. Patient InstructionsNo instructions recorded. Reason for Referral None Reported. 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 Please review this document and add these problems to the patient's chart manually as needed. Problem Notes None recorded. Procedures Surgical History Date Name Laterality Status Provider Name and Address Organization Details Recorded Time 01/08/20 24 Destruction Premalignant Lesion(s) completed Anusha Huynh [facility] 01/08/2024 11:09:38 03/10/20 18 Back Surgery completed Ebonie Garcia [facility] 03/23/2018 10:45:06/06/20 15 Back Surgery completed Ebonie Garcia [facility] 03/23/2018 10:44:27 Unlisted px accessory sinus completed Gloria Beckerholz [facility] 09/26/2016 10:19:44 Imaging Results None recorded. Procedure Notes None recorded. Medical Equipment None Reported. Allergies Allergen ID Allergen Name Allergen Category Reaction Reaction Severity Criticality Documentation Date Start Date Code Code System Note Provider Name and Address Organization Details Recorded Time 197443 Product containin g penicilli n (product) medicatio n Not available Not available Not available 07/12/20162013 24203 8001 SNOMED Comme nt: Creat ed By: Kiko alexander;Cre ated Date: 014 2:04: 02 PM; Not Available [facility] 6 03:13:49 920694 dexametha sone medicatio n Not available Not available Not available 07/12/20162013 3264 RxNorm Comme nt: Creat ed By: Kiko alexander;Cre ated Date: 014 2:05: 18 PM; Not Available [facility] 6 03:13:49 437249 Celebrex medicatio n Not available Not available Not available 07/12/20162013 11733 7 RxNorm Comme nt: Creat ed By: Kiko alexander;Cre ated Date: 014 2:05: 29 PM; Not Available [facility] 6 03:13:49 299473 bacitraci n / neomycin / polymyxin B / pramoxine medicatio n Not available Not available Not available 07/12/20162013 81379 0 RxNorm Comme nt: Creat ed By: Kiko alexander;Cre ated Date: 014 2:04: 18 PM; Not Available [facility] 6 05:00:15 Medications Name Sig Start Date [...] refills:0 Not Available Not Available Not Available Branscomb 10 mg-325 mg tablet Take 1 tablet [...] refills:0 Not Available Not Available Not Available Branscomb 7.5 mg-325 mg tablet Take 1 tablet every 6 hours by oral route as needed. 2017 active Not Available Not Available Not Avai lable Branscomb 5 mg-325 mg tablet Take 1 tablet [...] Not Available Not Available Not Available Vitals None Recorded Social History Question Answer Notes LastModified by Organizat ion Details LastModified Time Tobacco Smoking Status Former Smoker Gloria Chilel [facility] 09/26/2016 10:19:30 What Was The Date Of [...] available 09/26 10:18:26 Medical History Condition Response Osteoporosis/Osteopenia Y Squamous Cell Carcinoma Y Sleep Apnea Y High Cholesterol Y Thyroid Disorder Y Skin Cancer Y Hypertension Y Asthma Y Gynecological HistoryNo gynecological history recorded. Obstetrics History GPAL:G 0 P 0 0 0 0 Past Encounters Encounter ID Performer Location Encounter Start Date Encounter Closed Date Diagnosis/Indication Diagnosis SNOMED-CT Code Diagnosis ICD10 Code Diagnosis Note [id number] RONALD HERNANDEZ MD [address] [address] [place] [address] 01/13/2025 10:40:26 01/13/2025 11:37:28 Seborrheic keratosis 110992691 L82.1 nature of diagnosis discussed. 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 Has been present for years, not bothersome . Tried topicals w/o improvemen t. No great treatmentf /up with changes or concerns Melanocyti c nevus of skin 131986786 D22.72 nature of diagnosis discussed. Mole looks benign. See me with changef/up with changes or concerns History of malignant neoplasm of skin 378713951 Z85.828 L90.5 nature of diagnosis discussedf /up with changes or concerns Multiple b enign melanocytic nevi 242590197 D22.5 - Benign lesions seen on exam today- SPF 30 or higher broad-spec trum sunscreen recommende d with re-applica tion every 2 hours- Discussed sun protection measures, including wide-brimm ed hat, sun-protec tive clothing, and avoidance of sun during peak hours of 10am-4pm- Instructed to monitor for changes and to call us for appointmen t with any changing or worrisome lesions Solar lentigo 94394988 L 81.4 - Benign brown spots - Sun-induce d Health Concerns Section Related Observation LastModified by Organization Detai ls LastModified Time None Recorded Concern Status LastModified by Organization Details LastModified Time None Recorded Payers Encounter Date Sequence Insurance Name Policy Number Policy Edwards Covered Member ID Edwards Member ID Guarantor Name 01/13/[address] [facility] (MEDICARE REPLACEMENT/A DVANTAGE - PPO) [id number] Yesenia Venegas [id number] Yesenia Venegas Notes Date Note Type Note Provider Name and Address Organization Details Recorded Time 01/13/2025 text/html Annual, FSE. 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
--- OUTSIDE RECORDS SUMMARY | 2025-01-24 14:16 | XMS_ITS | Patient Health Record ---
[facility] Address [address] [facility] [address] [place] [id number] Care Team Providers Care Statistical Modeler Name Role Phone Nichol Rodríguezian Primary Care Provider [phone] Gabbie Juarez Unavailable [phone] Ryann Neville Unavailable [phone] Allergies Allergen (clinical drug ingredient) Drug/Non Drug [...] - 38 plat 169 100 - 400 Covid test (in house) Reviewed date:10/20/2024 04:27:03 PM Interpretation: Performing Lab: Notes/Report: Result: Neg Influenza Screen (in house) Reviewed date:10/20/2024 04:26:19 PM Interpretation: Performing Lab: Notes/Report: results Pos A P-Microalbumin/Creatinine, R andom Urine Sample Reviewed date:11/24/2024 04:12:18 PM Interpretation:Normal Performing Lab: Notes/Report: Test performed by [facility] [address] [place] [address] , [place] [address] Reed Owens MD, Pressure Vessel Inspector CLIA: [id number] Albumin/Creatinine Ratio, Urine <17.54 0-30 ug/mg Microalbumin, Urine, Random <0.3 Creatinine, Urine 17.1 CBC Fingerstick (in house) Reviewed date:11/23/2024 12:23:56 [...] - 38 plat 184 100 - 400 P-TSH Reviewed date:09/15/2024 08:59:21 AM Interpretation: Normal Performing Lab: Notes/Report: Test performed by [facility] [address] [place] [address] , [place] [address] Reed Owens MD, Pressure Vessel Inspector CLIA: [id number] TSH 2.90 0.43-5.25 mU/L P-Lipid Panel Reviewed date:09/15/2024 08:59:20 AM Interpretation:trigs 210 Performing Lab: Notes/Report: Test performed by [facility] [address] [place] [address] , [address], [place] [address] Reed Owens MD, Pressure Vessel Inspector CLIA: [id number] Cholesterol 135 <200 mg/dL Triglycerides 210 <150 mg/dL HDL Cholesterol 56 >39 mg/dL Cholesterol / HDL Ratio 2.41 0.00-4.44 Ratio Non-HDL Cholesterol 79 <130 mg/dL LDL Cholesterol (Calculation) 37 <130 mg/dL LDL Cholesterol Levels* Less than 100 mg/dL Optimal 100 to 129 mg/dL Near Optimal/ Above Optimal 130 to 159 mg/dL Borderline High 160 to 189 mg/dL High 190 mg/dL and above Very High * Categories as recommended by the 2004 ATPIII guidelines LDL/HDL Ratio 0.7 <3.3 Ratio LDL Cholesterol Patient History Test Date: 10/08/2023 LDL Results: 132 Units: mg/dL % Change: - Test Date: 10/27/2023 LDL Results: 130 Units: mg/dL % Change: -1% Test Date: 09/14/2024 LDL Results: 37 Units: mg/dL % Change: -71% P-T4 Free (thyroxine) Reviewed date:09/15/2024 08:59:20 AM Interpretation: Normal Performing Lab: Notes/Report: Test performed by [facility] [address] [facility] [address] , [place] [address] Reed Owens MD, Pressure Vessel Inspector CLIA: [id number] Thyroxine Free (free T4) 1.34 0.86-1.76 ng/dL P-Comprehensive Metabolic Pa carlo (CMP) Reviewed date:09/15/2024 08:59:20 AM Interpretation: Normal Performing Lab: Notes/Report: Test performed by [facility], [address] , [address], [place] [address] Reed Owens MD, Pressure Vessel Inspector CLIA: [id number] Sodium 139 135-145 mmol/L Potassium 4.9 3.5-5.3 mmol/L Chloride 101 97-108 mmol/L CO2 27 22-32 mmol/L Glucose 95 65-99 mg/dL BUN 18 8-23 mg/dL Creatinine 0.83 0.50-1.00 mg/dL Calcium 10.0 8.6-10.4 mg/dL eGFR by Creatinine 72 >59 mL/min/1.73m2 Protein 6.9 6.0-8.3 g/dL Albumin 4.4 3.5-5.3 g/dL Alkaline Phosphatase 98 35-121 IU/L ALT (SGPT) 18 <5-47 IU/L AST (SGOT) 20 <5-40 IU/L Bilirubin, Total 0.5 <0.2-1.2 mg/dL A/G Ratio 1.8 1.1-2.5 Urinalysis - Inhouse Reviewed date:07/01/2024 12:44:44 PM Interpretation: Performing Lab: Notes/Report: Color/Clarity yellow/clear Leuk neg Nitrite neg Urobili 3.2 Protein neg pH 7.0 Blood neg Sp. Gr. 1.015 Ketone neg Bili neg Gluc neg Influenza Screen (in house) Reviewed date:07/01/2024 12:42:51 PM Interpretation: Performing Lab: Notes/Report: results Neg Covid test (in house) Reviewed date:07/01/2024 12:42:31 PM Interpretation: Performing Lab: Notes/Report: Result: Pos CBC Venipuncture (in house) Reviewed date:12/21/2024 09:24:10 [...] Interpretation: Performing Lab: Notes/Report: Test performed by [facility], [facility] [facility] , [address], [place] [address] Reed Owens MD, Pressure Vessel Inspector CLIA: [id number] Sodium 139 135-145 mmol/L Potassium 4.3 3.5-5.3 [...] date:12/31/2024 04:32:33 PM Interpretation: Performing Lab: Notes/Report: Medications Medication SIG (Take, Route, Frequency, Duration) Notes Start Date End Date Status Levothyroxine Sodium 50 mcg 1 tablet in the morning on an empty stomach Orally Once a day for 90 days Active Calcium 600 + Minerals 600-200 MG-UNIT 1 tab(s) orally once a day Active Latanoprost 0.005 % 1 gtt in each eye on ce a day (at bedtime) Active XALATAN EYE DROPS Ac tive Vitamin E 400 UNIT 1 cap(s) orally once a day Active PreserVision AREDS 2+Multi Vit - 1 cap(s) orally twice a day Active Multivitamin - 1 tab(s) orally once a day Active Gabapentin 300 MG 2 caps orally 3 time s a day 05/26/2024 Active Dorzolamide HCl-Timolol Mal 22.3-6.8 MG/ML 1 gtt in each eye 2 times a day Active Citalopram Hydrobromide 10 MG 1 tab(s) orally once a day Active Omeprazole 40 MG 1 cap(s) orally once a day Active Nystatin 656744 UNIT/GM 1 application Externally Twice a day 07/01/2024 Active Cefuroxime Axetil 500 MG 1 tablet Orally every 12 hrs for 7 days 12/13/2024 Not-Taking Furosemide 40 MG 1 tab(s) orally once a day Active Lisinopril 40 mg 1 tablet Orally Once a day Active Ventolin HFA 108 (90 Base) MCG/ACT 2 puff(s) inhaled 4 times a day 09/24/2018 Active Rosuvastatin Calcium 20 MG 1 tablet Orally Once a day 06/14/2024 Active Singulair 10 MG 1 tab(s) orally once a day at bed time Active Loratadine 10 MG 1 tab(s) orally once a day Active Advair Diskus 250-50 MCG/ACT 1 puff(s) inhaled 2 times a day 10/07/2018 Active Benzonatate 200 MG 1 capsule as needed Orally Three times a day prn 12/13/2024 Active Biotin 5 MG 1 cap(s) orally once a day (qhs) 03/16/2018 Active Spiriva Respimat 2.5 MCG/ACT 2 puff(s) inhaled once a day Active Ipratropium-Albuterol 0.5-2.5 (3) MG/3ML 3 ml by nebulizer 4 times a day as needed 12/23/2018 Active Vitamin D3 50 MCG (2000 UT) 2 tab(s) orally once a day 01/21/2019 Active FiberCon 1 TAB(S) ORALLY ONCE A DAY 03/16/2018 Active Immunizations Vaccine Route Administration Date Status Comme nts xFluzone High Dose-private (65yr&older) Unknown 06/11/2024 Administered xFlu shot- 6months-36 months of hae-UTVY-EIZJ-trival ent Unknown 05/18/2015 Administered Shingrix IM Intramuscular 06/13/2020 Administered Prevnar (PCV20) IM Intramuscular 10/27/2023 Administered PNEUMOVAX 23 VACCINE Unknown 05/18/2015 Administered PNEUMOVAX 23 VACCINE IM Intramuscular 06/13/2020 Administe red Hepatitis B (20 and more) Unknown 06/23/2007 Administered Hepatitis B (20 and more) Unknown 07/30/2007 Administered Hepatitis B (20 and more) Unknown 01/01/2008 Administered Fluzone High Dose (65yr and older) IM Intramuscular 07/03/2017 Administered Fluzone High Dose (65yr and older) IM Intramuscular 05/06/2019 Administered Fluzone High Dose (65yr and older) IM Intramuscular 06/11/2021 Administered Fluzone High Dose (65yr and older) IM Intramuscular 05/29/2023 Administered COVID 19 Moderna Unknown 09/27/2020 Administered COVID 19 Moderna Unknown 10/25/2020 Administered Fluzone High Dose (65yr and older) IM Intramuscular 06/19/2022 Pending Fluzone High Dose (65yr and older) IM Intramuscular 05/11/2020 Administered Fluzone High Dose (65yr and older) IM Intramuscular 05/22/2018 Administered Fluzone High Dose (65yr and older) IM Intramuscular 06/11/2016 Administered Fluzone High Dose (65yr and older) IM Intramuscular 05/23/2015 Administered Fluzone High Dose (65yr and older) IM Intramuscular 05/16/2014 Administered Hepatitis B (20 and more) Unknown 01/01/2008 Administered PNEUMOVAX 23 VACCINE IM Intramuscular 01/26/2015 Administe red Prevnar (PCV13) IM Intramuscular 07/05/2013 Administered Shingrix IM Intramuscular 05/06/2019 Administered Tetanus Tdap-Adacel (over 7yrs) Unknown 04/09/2017 Pending vaccination back ordered; pt will receive with next office visit Tetanus-DT IM Intramuscular 09/05/2005 Administered xAdministration of injection IM Intramuscular 09/11/2009 Administered xFlu shot-36 months and older IM Intramuscular 07/13/2008 Administered xFluzone (6mos and older)-trivalent IM Intramuscular 06/25/2013 Administered COVID 19 Moderna Unknown 07/05/2021 Administered Problems Problem Type SNOMED Code ICD Code Onset Dates Problem Status W/U Status Risk Notes Problem Gastroesophageal reflux disease (719304225) GERD (gastroesophageal reflux disease) (K21.9) Active confirmed Problem Hypertension (11867040) HTN (hypertension) (I10) Active confirmed Problem Vitamin D deficiency (90045859) Vitamin D deficiency (E55.9) Active confirmed Problem 76537392 Essential hypert ension (I10) Active confirmed Problem 192658657 Hypertriglycerid emia (E78.1) Active confirmed Problem Constipation (67829912) Constipation (K59.00) Active confirmed Problem Hyperlipidaemia (82147735) Hyperlipemia (E78.5) Active confirmed Problem Osteopenia (278844907) Osteopenia (M85.80) Active confirmed Problem Arthritis (2894346) Arthritis (M19.90) Active confirmed Problem Chronic depression (754144214) Chronic depression (F32.9) Active confirmed Problem 000564260 COPD exacerbatio n (J44.1) Active confirmed Problem 454002556 Localized edema (R60.0) Active confirmed Problem Morbid obesity (disorder) (490605920) Morbid (severe) obesity due to excess calories (E66.01) Active confirmed Problem 078912179 Mixed hyperlipid emia (E78.2) Active confirmed Problem 506173987 Chronic pain syn drome (G89.4) Active confirmed Problem 361001694 Pulmonary nodule (R91.1) Active confirmed Problem 671642388 Peripheral vascu lar disease (I73.9) Active confirmed Problem 927191276 Acquired hypothyroidism (E03.9) Active confirmed Problem 147626248 Abnormal mammogr am of left breast (R92.8) Active confirmed Problem 94631097 Chronic obstruct [place] pulmonary disease, unspecified COPD type (J44.9) Active confirmed Problem Neuropathy (045232013) Neuropathy (G62.9) Active confirmed Problem Allergic rhinitis (48612560) Allergic rhinitis (J30.9) Active confirmed Problem 513964854 Macular degenera tion (H35.30) Active confirmed Problem 736402060 Primary osteoart hritis of both knees (M17.0) Active confirmed Problem 482940053 BMI 37.0-37.9, a dult (Z68.37) Active confirmed Problem Glaucoma (85007481) Glaucoma (H40.9) Active confirmed Problem Difficulty walking (086539491) Difficulty walking (R26.2) Active confirmed Problem 519339120 Cataract of left eye, unspecified cataract type (H26.9) Active confirmed Problem 874840077 Non morbid obesi ty (E66.9) Active confirmed Problem 76871990 Senile cataract of left eye, unspecified age-related cataract type (H25.9) Active confirmed Problem 98662626 Contusion of rig ht clavicle, initial encounter (S40.011A) Active confirmed Problem 703946911 Stage 2 moderate COPD by GOLD classification (J44.9) Active confirmed Problem 809673082 Use of cane as ambulatory aid (Z99.89) Active confirmed Vital Signs Heart Rate 96 /min 12/20/2024 Blood pressure diastolic 68 mm Hg 12/20/2024 Height 64.50 in 12/20/2024 Blood pressure systolic 120 mm Hg 12/20/2024 Weight 224.4 lbs 12/20/2024 BMI 37.92 kg/m2 12/20/2024 Encounters Encounter Location Date Provider Diagnosis [facility] [address] [place], [place] [id number] 02/16/2024 Sid Clarklake Acute contact dermat itis L25.9 [facility] [address] [id number] 03/30/2024 Sid Clarklake Essential hypertensi on I10 and Hyperlipemia E78.5 [facility] [address] [place], [place] [id number] 06/14/2024 Sid Clarklake Mixed hyperlipidemia E78.2 and Hypertriglyceridemia E78.1 [facility] [address] [place], [place] [id number] 07/01/2024 Ryann Crowdy COVID-19 U07.1 ; Dys uria R30.0 and Yeast infection B37.9 [facility] [address] [place], [place] [id number] 09/14/2024 Sid Clarklake Essential hypertensi on I10 ; Acquired hypothyroidism E03.9 ; Mixed hyperlipidemia E78.2 ; Hypertriglyceridemia E78.1 ; Chronic obstructive pulmonary disease, unspecified COPD type J44.9 and Non morbid obesity E66.9 [facility] [address] [place], [place] [id number] 10/20/2024 Sid Clarklake Influenza A J10.1 [facility] [address] [place], [place] [id number] 11/23/2024 Sid Clarklake COPD exacerbation J4 4.1 and Essential hypertension I10 [facility] [address] [place], [place] [id number] 12/13/2024 Gabbie Juarez Bronchitis J40 and HTN (hypertension) I10 [facility] [address] [place], [place] [id number] 12/20/2024 Gabbie Juarez Acute bronchitis J20.9 ; Adult general medical examination Z00.00 ; [...] knees M17.0 and BMI 37.0-37.9, adult Z68.37 [facility] [address] [facility] [address] [place], [place] [id number] 02/17/2024 Sid Clarklake [facility] [address] [place], [place] [id number] 05/26/2024 Sid Clarklake Neuropathy G62.9 [facility] [address] [place], [place] [id number] 06/14/2024 Sid Clarklake Chronic obstructive pulmonary disease, unspecified COPD type J44.9 [facility] [address] [place], [place] [id number] 07/02/2024 Sid Clarklake Essential hypertensi on I10 [facility] [address] [place], [place] [id number] 07/08/2024 Sid Clarklake [facility] [address] [place], [place] [id number] 09/15/2024 Sid Clarklake [facility] [address] [place], [place] [id number] 10/06/2024 Sid Clarklake Mixed hyperlipidemia E78.2 [facility] [address] [place], [place] [id number] 11/26/2024 Sid Clarklake [facility] [address] [place], [place] [id number] 12/03/2024 Sid Clarklake Chronic obstructive pulmonary disease, unspecified COPD type J44.9 [facility] [address] [place], [place] [id number] 01/20/2025 Sid Clarklake Acquired hypothyroid ism E03.9 Assessments Encounter Date Diagnosis (ICD Code) Assessment Notes Treatment Notes Treatment Clinical Notes Section Notes 02/16/2024 Acute contact dermatitis (ICD-10 - L25.9) 03/30/2024 Essential hypertensi on (ICD-10 - I10) 03/30/2024 Hyperlipemia (ICD-10 - E78.5) Labs drawn this morning are still pending 05/26/2024 Neuropathy (ICD-10 - G62.9) 06/14/2024 Hypertriglyceridemia (ICD-10 - E78.1) 06/14/2024 Mixed hyperlipidemia (ICD-10 - E78.2) 06/14/2024 Chronic obstructive pulmonary disease, unspecified COPD type (ICD-10 - J44.9) 07/01/2024 Dysuria (ICD-10 - R30.0) 07/01/2024 COVID-19 (ICD-10 - U07.1) Fluids, rest, supportive measures for fever and symptoms relief, discussed covid vitamins and isolation period. Will hold rosuvastatin while taking the paxlovid. Will start nebs 4 times a day and monitor oxygen saturation. 07/02/2024 Essential hypertensi on (ICD-10 - I10) 09/14/2024 Essential hypertensi on (ICD-10 - I10) 09/14/2024 Acquired hypothyroid ism (ICD-10 - E03.9) 10/06/2024 Mixed hyperlipidemia (ICD-10 - E78.2) 10/20/2024 Influenza A (ICD-10 - J10.1) 11/23/2024 Essential hypertensi on (ICD-10 - I10) 11/23/2024 COPD exacerbation (ICD-10 - J44.1) 12/03/2024 Chronic obstructive pulmonary disease, unspecified COPD type (ICD-10 - J44.9) 12/13/2024 Bronchitis (ICD-10 - J40) declines CXR today; good fluid intake; to use Duonebs tid until cough much improved 12/20/2024 Acute bronchitis (ICD-10 - J20.9) 12/20/2024 Adult general medica l examination (ICD-10 - Z00.00) Patient instructed to return to office Annually for Annual Wellness Visits to include annual screenings of Pain assessment, Functional Ability assessment, Cognitive Ability assessment, Fall Risk assessment, Depression screening and Bladder control screening. 01/20/2025 Acquired hypothyroid ism (ICD-10 - E03.9) 12/13/2024 HTN (hypertension) (ICD-10 - I10) 12/20/2024 Acquired hypothyroid ism (ICD-10 - E03.9) 09/14/2024 Mixed hyperlipidemia (ICD-10 - E78.2) 07/01/2024 Yeast infection (ICD -10 - B37.9) 09/14/2024 Hypertriglyceridemia (ICD-10 - E78.1) 12/20/2024 Essential hypertensi on (ICD-10 - I10) 12/20/2024 Chronic obstructive pulmonary disease, unspecified COPD type (ICD-10 - J44.9) 09/14/2024 Chronic obstructive pulmonary disease, unspecified COPD type (ICD-10 - J44.9) 09/14/2024 Non morbid obesity (ICD-10 - E66.9) 12/20/2024 Encounter for screen ing mammogram for breast cancer (ICD-10 - Z12.31) 12/20/2024 Neuropathy (ICD-10 - G62.9) 12/20/2024 GERD (gastroesophage al reflux disease) (ICD-10 - K21.9) 12/20/2024 Vitamin D deficiency (ICD-10 - E55.9) 12/20/2024 Peripheral edema (ICD-10 - R60.9) 12/20/2024 Macular degeneration (ICD-10 - H35.30) 12/20/2024 Chronic depression (ICD-10 - F32.9) 12/20/2024 Glaucoma (ICD-10 - H40.9) 12/20/2024 Osteopenia (ICD-10 - M85.80) 12/20/2024 Mixed hyperlipidemia (ICD-10 - E78.2) 12/20/2024 Allergic rhinitis (ICD-10 - J30.9) 12/20/2024 Primary osteoarthrit is of both knees (ICD-10 - M17.0) 12/20/2024 BMI 37.0-37.9, adult (ICD-10 - Z68.37) 06/14/2024 Other Application for [employer] Gatheredtable placard signed today Plan Of Treatment Pending Test Test Name Order Date colonoscopy 10/08/2023 Insurance Providers Payer Name Payer Address Payer Phone Subscriber Number Group Number Insured Name Patient Relationship to Insured Coverage Start Date Coverage End Date [employer] [address] [address] [place], [place] [id number] LIONEL WADSWORTH Self - patient is the insured Medications Administered Medication Instructions Date of Administration Dosage Notes Dexamethasone 12/23/2018 1 mL Dexamethasone 09/16/2018 2 mL Depo- Medrol 40 mg/ml 09/09/2018 1 mL Medical (General) History Medical History History ICD Code Allergies Depression Asthma COPD Hypertension Hypothyroidism 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 [place] in [facility] macular degeneration, Dx: 2011 Colon polyps diverticulosis hyperlipidemia sleep apnea Difficult intubation November 2012 Glaucoma osteoarthritis bilateral knees carpal tunnel syndrome cubital tunnel syndrome Neg cardiolyte GXT 2013 Thyroid nodule, s/p FNA 2015 Top left Bridge in her mouth cataracts Surgical History Surgery Date(Month/Year) Hospitalization History Reason Date(Month/Year)
--- OUTSIDE RECORDS SUMMARY | 2025-01-24 14:16 | XMS_ITS | Data Portability ---
Author Organization [place] [facility] JACOBO Akhtar DEWEY CLOSED Address [address] [place] [address] [address] [place] [address] Care Team Providers Care Quality Analyst Name Role Phone [facility] Primary Care Provider Assessment Encounter Date Assessment Date Assessment LastModified by Organization Details LastModified Time 04/13/2018 04/13/2018 lumbar x ray performed today shows good placement of hardware without evidence of loosening Ms. Venegas is s/p extension of her fusion to include T11 through iliac screws on 03/[address] Mcnulty. She is doing well. She is taking about 4 pain pills a day. She was provided with a Hunker refill today to take as needed. She [...] Last Modified Time Details Appointments FOLLOW UP [facility] 2025 10:30A Ector HERNANDEZ MD Not available Not available Not available Lab None recorded . Referral None recorded . Procedures None recorded . Surgeries None recorded . Imaging None recorded . Medication Orders Hunker 7.5 mg-325 mg tablet 2017 018 [email or web address] [facility], [address], [address], [place], [address], 04/13/2018 14:20:08 Patient TargetsNo targets recorded. Patient Instructions Encounter Date Encounter Id Patient Instructions Last Modified By Organization Details Last Modified Time 06/15/2018 [id number] Spent 15# total minutes with the patient today. Greater than 50% of this time was spent counseling/coordi nation of care as documented in my assessment and plan above. [email or web address] Not available 06/16/2018 08:43:14 12/14/2018 [id number] Spent 15# total minutes with the patient today. Greater than 50% of this time was spent counseling/coordi nation of care as documented in my assessment and plan above. [email or web address] Not available 12/14/2018 14:38:04 Reason for Referral None Reported. Results Created Date Observation Date Name Description Value Unit Range Abnormal Flag Note LastModifiedBy Organization Detail LastModifiedTime 03/23/20 18 03/23/2018 XR, lumbo sacra l spine , 2 or [address] [place] [address] Marjorieglenn echevarria Name: LIONEL echevarria : [address] [...] MD on 03/23/20 18 10:51 AM [email or web address] [facility] Radiology [facility] [address] [place], [address], 03/25/2018 08:25:01 03/23/20 18 03/23/2018 XR, thora cic spine , 2 view [place] [address] [facility] [place] [address] Patiglenn echevarria Name: LIONEL echevarria : [address] echevarria Orderi ng Provid er: BILLY Mitchell JOAN EXAM DATE: 2017 EXAM: XR THORAC IC [...] Sommer MD on 03/23/20 18 10:[address] Rad[facility] [address], [address], 03/25/2018 08:25:00 04/13/20 18 04/13/2018 XR, lumbo sacra l spine , 2 or [address] [address] George echevarria Name: LIONEL echevarria : [address] echevarria Orderi ng Provid er: BILLY Mitchell JOAN EXAM DATE: 2017 EXAM: XR LUMBAR AP/LAT [...] infect ion is seen. Interp reted By: Otilai Sommer MD Electr onical ly Signed By: Otilia Sommer MD on 018 3:04 PM [email or web address] [facility] Radiology [facility] [address] [place], [address], 04/13/2018 17:39:27 04/13/20 18 04/13/2018 XR, thora cic spine , [address] [address] Goerge echevarria Name: LIONEL echevarria : [address] [...] Otilia Sommer MD on 018 4:[email or web address] [facility] [address], [address], 04/13/2018 17:38:58 06/15/20 18 06/15/2018 XR, lumbo sacra l spine , 2 or [address] [address] George echevarria Name: LIONEL echevarria : [address] [...] Otilia Sommer MD on 2017 2:19 PM [email or web address] [facility] Radiology [facility] [address] [place], [address], 06/18/2018 18:03:55 06/15/20 18 06/15/2018 XR, thora cic spine , 2 view [place] [facility] [address] [place] [address] [place] [address] Patiglenn t Name: LIONEL echevarria : [address] [...] Sommer MD on 2017 2:23 PM [email or web address] [facility] Radiology [facility] [address] [place], [address], 06/18/2018 18:03:55 12/15/19 19 12/14/2018 XR, lumbo sacra l spine , 2 or 3 view [place] [facility] [address] [place] [address] [place] [address] Patien t Name: LIONEL echevarria : [address] echevarria Orderi ng Provid er: BILLY MCNULTY EXAM DATE: 2018 EXAM: XR LUMBAR AP/LAT [...] ly Signed By: Otilia Sommer MD on 3:[email or web address] [facility] [address], [address], 12/17/2018 12:30:08 12/15/19 19 12/14/2018 XR, thora cic spine , [address] [address] Patiglenn echevarria Name: LIONEL echevarria : [address] eche[address] Orderi ng Provid er: BILLY MCNULTY EXAM DATE: 2018 EXAM: XR THORAC IC [...] By: Otilia Sommer MD on 3:[email or web address] [facility] [address], [address], 12/17/2018 12:30:08 Result Notes None recorded. Problems Name Problem SNOMED Code Status Onset Date Resolution Date Notes Provider Name and Address Organization Details Recorded Time Spondylol isthesis 979629647 Active 2014 From Automated Load;Provi suzan: Douglas, Fang;Sta tus: Active Not Available [facility] 6 07:38:10 Thigh pain 44873659 Active 2015 From Automated Load;Provi suzan: Eddie Mcnulty;St atus: Active Not Available [facility] 6 07:38:10 Notes:Some problems listed i n Document: #[id number] could not be added to this patient's chart. Please review this document and add these problems to the patient's chart manually as needed. Problem Notes None recorded. Procedures Surgical History Date Name Laterality Status Provider Name and Address Organization Details Recorded Time 01/08/20 24 Destruction Premalignant Lesion(s) completed Anusha Huynh [facility] 01/08/2024 11:09:38 03/10/20 18 Back Surgery completed Ebonie Garcia [facility] 03/23/2018 10:45:09 06/06/20 15 Back Surgery completed Ebonie Garcia [facility] 03/23/2018 10:44:27 Unlisted px accessory sinus completed Gloria Chilel [facility] 09/26/2016 10:19:44 Imaging Results None recorded. Procedure Notes None recorded. Medical Equipment None Reported. Allergies Allergen ID Allergen Name Allergen Category Reaction Reaction Severity Criticality Documentation Date Start Date Code Code System Note Provider Name and Address Organization Details Recorded Time 684160 Product containin g penicilli n (product) medicatio n Not available Not available Not available 07/12/20162013 65680 8001 SNOMED Comme nt: Creat ed By: Kiko alexander;Cre ated Date: 014 2:04: 02 PM; Not Available [facility] 6 03:13:49 822692 dexametha sone medicatio n Not available Not available Not available 07/12/20162013 3264 RxNorm Comme nt: Creat ed By: Kiko alexander;Cre ated Date: 014 2:05: 18 PM; Not Available [facility] 6 03:13:49 599113 Celebrex medicatio n Not available Not available Not available 07/12/20162013 30792 7 RxNorm Comme nt: Creat ed By: Kiko alexander;Cre ated Date: 014 2:05: 29 PM; Not Available [facility] 6 03:13:49 637367 bacitraci n / neomycin / polymyxin B / pramoxine medicatio n Not available Not available Not available 07/12/20162013 55200 0 RxNorm Comme nt: Creat ed By: Kiko alexander;Cre ated Date: 2:04: 18 PM; Not Available [facility] 6 05:00:15 Medications Name Sig Start [...] mg capsule,de layed release Daily active Frequency: daily;[facility] cation Descriptio n: omeprazole ; Dosage:1; Route:oral ; refills:0 Not Available Not Available Not Available Valium 5 mg tablet Take 1 tablet twice a day by oral route as needed. 2017 active Not Available Not Available Not Avai lable levothyrox ine 50 mcg tablet Daily active Frequency: daily;[facility] cation Descriptio n: levothyrox ine; Dosage:1; Route:oral [...] refills:0 Not Available Not Available Not Available Hunker 10 mg-325 mg tablet Take 1 tablet [...] refills:0 Not Available Not Available Not Available Hunker 7.5 mg-325 mg tablet Take 1 tablet every 6 hours by oral route as needed. 2017 active Not Available Not Available Not Avai lable Hunker 5 mg-325 mg tablet Take 1 tablet [...] Updated DateTime 12/14/2018 167.64 cm 30.3 kg/m2 95780.37 g 126 mm[Hg] 82 mm[Hg] Gloria Chilel [facility] 9 14:15:28 Date Recorded Body height Body mass index (BMI) Body weight Systolic blood pressure Diastolic blood pressure Provider Name and Address Organization Details Last Updated DateTime 04/13/2018 167.64 cm 30.3 kg/m2 22385.37 g 132 mm[Hg] 80 mm[Hg] Gloria Chilel [facility] 8 13:33:42 Date Recorded Body height Body mass index (BMI) Body weight Systolic blood pressure Diastolic blood pressure Provider Name and Address Organization Details Last Updated DateTime 06/15/2018 167.64 cm 30.3 kg/m2 80841.37 g 126 mm[Hg] 82 mm[Hg] Gloria Chilel [facility] 8 13:08:58 Social History Question Answer Notes LastModified by Organizat ion Details LastModified Time Tobacco Smoking Status Former Smoker [facility]lemr [facility] 09/26/2016 10:19:30 What Was The Date [...] Squamous Cell Carcinoma Y Sleep Apnea Y Thyroid Disorder Y High Cholesterol Y Skin Cancer Y Hypertension Y Asthma Y Gynecological HistoryNo gynecological history recorded. Obstetrics History GPAL:G 0 P 0 0 0 0 Past Encounters Encounter ID Performer Location Encounter Start Date Encounter Closed Date Diagnosis/Indication Diagnosis SNOMED-CT Code Diagnosis ICD10 Code Diagnosis Note [id number] EDDIE MCNULTY MD [facility] [address] [place] [address] 09/26/2016 09:18:16 09/26/2016 15:45:34 Spinal stenosis of lumbar region 99549196 M48.06 Spondylolisthesis 374230 003 M43.10 [id number] EDDIE MCNULTY MD [facility] [address] [place] [address] 11/18/2016 10:33:45 11/18/2016 11:15:12 [id number] EDDIE MCNULTY MD [facility] [address] [place] [address] 12/09/2016 13:18:44 12/10/2016 15:58:37 Spondylolisthesis 815406017 M43.10 [id number] EDDIE MCNULTY MD [facility] [address] [place] [address] 02/10/2017 10:20:34 02/12/2017 10:49:41 Spondylolisthesis 531241801 M43.10 [id number] EDDIE MCNULTY MD [facility] [address] [place] [address] 06/19/2017 10:58:53 06/19/2017 12:18:49 Low back pain 231910200 M54.5 [id number] TIARRA CORBIN PA-C [facility] [address] [place] [address] 01/22/2018 13:09:53 01/22/2018 14:30:04 Low back pain 699919502 M54.5 72F with [facility] low back pain with history of L2-iliac [...] occult fracture. pt agrees with this plan. [id number] EDDIE MCNULTY MD [facility] [address] [place] [address] 02/05/2018 12:57:47 02/05/2018 14:41:13 Spondylolisthesis 352598069 M43.10 [id number] EDDIE MCNULTY MD [facility] [address] [place] [address] 03/23/2018 10:24:53 03/23/2018 10:53:32 [id number] [facility] [address] [place] [address] 04/13/2018 13:00:58 04/13/2018 16:14:57 Lumbar disc prolapse with radiculopathy 576085936 M51.16 [id number] LOLA GALE PA-C [facility] [address] [place] [address] 06/15/2018 12:40:20 06/19/2018 16:09:34 Postoperative care 986321221 Z48.89 Here today for a scheduled post-op [...] agrees with the plan as stated above. [id number] LOLA GALE PA-C [facility] [address] [place] [address] 12/14/2018 13:35:37 12/15/2018 15:08:14 Low back pain 740143092 M54.5 Mrs. Venegas is here today status [...] agrees with the plan as stated above. [id number] RONALD HERNANDEZ MD [address] [place] [address] 01/08/2024 10:34:41 01/08/2024 11:20:16 Seborrheic keratosis 169624357 L82.1 nature of diagnosis discussed. 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 Has been present for years, not bothersome . Tried topicals w/o improvemen t. No great treatmentf /up with changes or concerns Actinic keratosis 327394 [address] todayNo wound care givenFup with change or concern Melanocyti c nevus of skin 814140301 D22.72 nature of diagnosis discussed. Mole looks benign. See me with changef/up with changes or concerns History of malignant neoplasm of skin 642323029 Z85.828 L90.5 nature of diagnosis discussedf /up with changes or concerns [id number] RONALD HERNANDEZ MD [address] [address] 01/13/2025 10:40:26 01/13/2025 11:37:28 Seborrheic keratosis 807611239 L82.1 nature of diagnosis discussed. Between breasts looks benignf/up with changes or concerns Senile angioma 2812422 I 78.1 nature of diagnosis discussedf /up with changes or concerns Granuloma annulare 03631 009 L92.0 nature of diagnosis discussed further. Has been present for years, not bothersome . Tried topicals w/o improvemen t. No great treatmentf /up with changes or concerns Melanocyti c nevus of skin 105366818 D22.72 nature of diagnosis discussed. Mole looks benign. See me with changef/up with changes or concerns History of malignant neoplasm of skin 056207923 Z85.828 L90.5 nature of diagnosis discussedf /up with changes or concerns Multiple b enign melanocytic nevi 301133474 D22.5 - Benign lesions seen on exam today- SPF 30 or higher broad-spec trum sunscreen recommende d with re-applica tion every 2 hours- Discussed sun protection measures, including wide-brimm ed hat, sun-protec tive clothing, and avoidance of sun during peak hours of 10am-4pm- Instructed to monitor for changes and to call us for appointmen t with any changing or worrisome lesions Solar lentigo 37835406 L 81.4 - Benign brown spots - Sun-induce d Health Concerns Section Related Observation LastModified by Organization Detai ls LastModified Time None Recorded Concern Status LastModified by Organization Details LastModified Time None Recorded Advance Directives Directive None Recorded Payers Insurance Date Sequence Insurance Name Policy Number Policy Edwards Covered Member ID Edwards Member ID Guarantor Name 01/17/2025 1 [facility] (MEDICARE REPLACEMENT/A DVANTAGE - PPO) [id number] Lionel Venegas [id number] Lionel Venegas Notes Date Note Type Note [...] she first noticed it. ATA PIERCE PA-C [address] [place], [address], [facility] 04/13/2018 15:16:55 06/15/2018 text/html Mrs. Venegas is [...] thoracic and lumbar xrays. LOLA GALE PA-C [address] [place], [address], [facility] 06/16/2018 08:44:41 12/14/2018 text/html Mrs. Venegas is [...] thoracic and lumbar xrays. LOLA GALE PA-C [address] [place] [address], [address], [facility] 12/14/2018 14:40:21 01/08/2024 text/html Patient presents with skin lesion.Location: mole between breast, back , LL ankleOnset/Timing: a month or so ago RONALD HERNANDEZ MD [address] [place] [address], [address], [facility] 01/08/2024 11:32:46 01/13/2025 text/html Annual, FSE. Pt denies getting [...] ago had the flu RONALD HERNANDEZ MD [address] [place] [address], [address], [facility] 01/13/2025 11:57:04 OBGyn Episode No OBEpisode recorded.
--- OUTSIDE RECORDS SUMMARY | 2025-01-24 14:16 | XMS_ITS | Encounter Summary ---
Author Organization Healthcare Address [address] [place] [address] Care Team Providers Care Medical Office Clerk Name Role Phone Sid Rodríguez MD Primary Care Provider + [phone] Reason for Visit * Reason Comments Med Refill Encounter Details Date Type Department Care Team (Late st Contact Info) Description 02/26/2022 [facility]ill [facility] [address] [place] [address] King Del Toro MD [address] [place] [address] Social History Tobacco Use Types Packs/Day Years Used Date Smoking Tobacco: Former Comments Unknown Sex and Gender Information Value Date Recorded Sex Assigned at Not on file Legal Sex Female 6:14 PM EDT Gender Identity Not on file Sexual Orientation Not on file documented as of this encounter Miscellaneous Notes * Telephone Encounter - Yesenia Diaz - 02/26/2022 8:51 AM EDT Patient must make a follow up appointment for any additional refills. documented in this encounter Plan of Treatment Not on file documented as of this encounter Visit Diagnoses Not on filedocumented in this encounter Care Teams Medical Office Clerk Relationship Specialty Start Date End Date Sid Rodríguez MD [address] [place] [address] PCP - General 12/29/20 documented as of this encounter
--- OUTSIDE RECORDS SUMMARY | 2025-01-24 14:16 | XMS_ITS | Clinical Summary ---
Author Organization Healthcare Address [address] [place] [address] Care Team Providers Care Salvage Winder And Inspector Name Role Phone Sdi Rodríguez MD Primary Care Provider Medications omeprazole (PriLOSEC) [address] capsule TAKE 1 CAPSULE DAILY 90 capsule 3 03/05/2021 Active Immunizations Immunization Administration Dates Next Due Influenza, seasonal, injectable 05/18/2015,05/18,08/18/2012 Pneumococcal Polysaccharide PPV23 05/18/2015,08/2012,08/18/2010 Family History Medical History Relation Name Comments Cardiac disorder Father Pneumonia Father Hip fracture Mother Cardiac disorder Other Cardiac disorder Sister 1 Pancreatic cancer Sister 2 Relation Name Status Comments Father Mother Other Sister 1 Sister 2 Social History Tobacco Use Types Packs/Day Years Used Date Smoking Tobacco: Former Comments Unknown Sex and Gender Information Value Date Recorded Sex Assigned at Not on file Legal Sex Female 6:14 PM EDT Gender Identity Not on file Sexual Orientation Not on file Last Filed Vital Signs Vital Sign Reading Time Taken Comments Blood Pressure 131/77 02/24/2020 10:32 AM EDT Pulse 82 02/24/2020 10:32 AM EDT Temperature 36.5 C (97.7 F) 02/24/2020 10:32 AM EDT Respiratory Rate 18 02/24/2020 10:32 AM EDT Oxygen Saturation - - Inhaled Oxygen Concentration - - Weight 97.1 kg (214 lb 1.1 oz) 02/24/2020 10:32 AM EDT Height 165.1 cm (5' 5 ) 05/11/2019 3:16 PM EDT Body Mass Index 35.62 05/11/2019 3:16 PM EDT Plan of Treatment Health Maintenance Due Date Last Done Comments [facility]-Bone Density Scan 1945 [facility]-Depression Screening 1945 [facility]-Infant/Child/Adol SDOH Screenings 1945 [facility]- SDOH Screenings 1963 [facility]-Adult SDOH Screenings 1963 [facility]-DTaP,Tdap,and Td Vaccines (1 - Tdap) 1964 [facility]-Zoster Vaccines (1 of 2) 1995 [facility]-Pneumococcal Vaccine: 50+ Years (2 of 2 - PCV) 05/18/2016 05/18/2015, 08/18/2012, 08/18/2010 [facility]-RSV Vaccine: 60+ Years or (1 - 1-dose 75+ series) 2020 ABQ-[id number] Vaccine ( - season) 2024 [facility]-Influenza Vaccine (Season Ended) 2025 05/18/2015, 05/18/2014, 08/18/2012 HPV Vaccines Aged Out No longer eligi ble based on patient's age to complete this topic [facility]-HIB Vaccines Aged Out No longer e ligible based on patient's age to complete this topic [facility]-Hepatitis A Vaccines Aged Out No longer eligible based on patient's age to complete this topic [facility]-IPV Vaccines Aged Out No longer e ligible based on patient's age to complete this topic [facility]-Rotavirus Vaccines Aged Out No lo nger eligible based on patient's age to complete this topic Care Teams Salvage Winder And Inspector Relationship Specialty Start Date End Date Sid Rodríguez MD [address] [place] [address] [place] [address] PCP - General 12/29/20
--- NOTE | 2025-01-24 14:45 | CT_ITS ---
FINAL REPORT TECHNIQUE: Axial imaging of the chest was obtained without contrast. Reformatted images were also obtained and reviewed.This study was performed with techniques to keep radiation doses as low as reasonably achievable, (ALARA). Individualized dose reduction technique using automated exposure control or adjustment of mA and/or kV according to the patient's size were employed. CLINICAL HISTORY: Abnormal CXR COMPARISON: 08/12/2023 FINDINGS: There is fusion hardware bridging the lower thoracic and upper lumbar spine. There is no axillary adenopathy. There is no hilar or mediastinal mass or adenopathy. Heart size is normal. There is no pericardial or pleural effusion. Limited images of the upper abdomen are unremarkable. No suspicious infiltrate or nodule is identified on lung window images. Lingular scarring is seen. There is complete dislocation of the left sternoclavicular joint with the medial left clavicular head posteriorly dislocated. This is new from prior exam and best seen on images 22 through 24 of series 2. IMPRESSION: No acute process. Interval development of dislocation of the left sternoclavicular joint as above. Reviewed, Interpreted and Dictated by Karthik Gill MD Transcribed by Cassie Walter Authenticated and . [facility]
== END 2025-01-24 23:59 | disposition home or self-care (01) ==
LOC: RAD 14:12
PROVIDERS: PCP Family Medicine; Visit Provider Internal Medicine Pulmonary Disease
DX: S43.205A Unspecified dislocation of left sternoclavicular joint, initial encounter (principal); R91.8 Other nonspecific abnormal finding of lung field
CPT/HCPCS: 71250

== ENCOUNTER 2025-02-09 14:03 | Outpatient (CLI) | payer MEDICARE, SELFPAY ==
--- OUTSIDE RECORDS SUMMARY | 2024-11-23 07:45 | XMS_ITS ---
Author Organization [facility] Address [address] [facility] [address] [place] [id number] Care Team Providers Care Information Services Manager Name Role Phone Sid Rodríguez Primary Care Provider [phone] Allergies Allergen (clinical drug ingredient) Drug/Non Drug [...] Interpretation:Normal Performing Lab: Notes/Report: Test performed by [facility] [address] [place] [address] , [address], [place] [address] Reed Owens MD, Software Licensing Specialist CLIA: [id number] Albumin/Creatinine Ratio, Urine <17.54 0-30 ug/m g [...] tablet Orally Once a day Active Nystatin 644228 UNIT/GM 1 application Ex ternally Twice a [...] 11/23/2024 Encounters Encounter Location Date Provider Diagnosis [facility] [address] [place] [id number] 11/23/2024 Sid Rodríguez COPD exacerbation J4 4.1 [...] CHRISTELLE VENEGASMARÍA ELENAB:1945 ([age] yo F)Acc No.[id number]:11/23/2024 Progress Notes Patient: LIONEL ENCARNACION Provider: Hector Rodríguez M.D. :1945 A ge:79 Y S ex:Female Date:11/23/2024 Address:[address], [id number] Subjective: * Chief Complaints: * 1 . 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 * Procedure Codes: G2211 Complex e/[place]. [address] [place] [address] CAPILLARY BLOOD DRAW. 88469 CBC WITH AUTO DIFF. 3075F SYST BP GE 130 - 139MM HG. 3078F DIAST BP < 80 MM HG. * Electronic signature of Sarah Rodríguez MD on 02/09/2025 at 02:08 PM EDT Sign off status: Pending * Provider: Hector Rodríguez M.D. Date: 0 11/23/2024 Generated for [place] kelly/Lexi/Zeenatitting on: 0 02/09/2025 02:08 PM EDT History and Physical Notes * [...]
--- OUTSIDE RECORDS SUMMARY | 2024-12-13 09:45 | XMS_ITS ---
Author Organization [facility] Address [address] [facility] [address] [id number] Care Team Providers Care Goldbeater Name Role Phone Sid Rodríguez Primary Care Provider [phone] Gabbie Juarez Unavailable [phone] Allergies Allergen (clinical drug ingredient) Drug/Non Drug Allergy documented on EMR Reaction Allergy Type Onset Date Status celecoxib CeleBREX Unknown Drug Allergy Active dexamethasone Dexamethasone Unknown Drug Allergy Active Neosporin Unknown Drug Allergy Active Penicillin Unknown Drug Allergy Active Results Component Value Reference Range Notes CBC Fingerstick (in house) Reviewed date:12/14/2024 01:00:13 PM Interpretation: Performing Lab: Notes/Report: wbc 7.8 3.5 - 10 lym 29.5 15 - 50 mid 6.6 2 - 15 gran 63.9 35 - 80 rbc 4.51 3.5 - 5.5 hgb 13.6 11.5 - 16.5 hct 42.2 35 - 55 mcv 93.7 75 - 100 mch 30.2 25 - 35 mchc 32.2 31 - 38 plat 169 100 - 400 REASON FOR VISIT bronchitis Medications Medication SIG (Take, Route, Frequency, Duration) Notes Start Date End Date Status Loratadine 10 MG 1 tab(s) orally once a day Active Rosuvastatin Calcium 20 MG 1 tablet Oral ly Once a day for 90 days 06/14/2024 Active Cefuroxime Axetil 500 MG 1 tablet Orally every 12 hrs for 7 days 12/13/2024 Active Benzonatate 200 MG 1 capsule as needed Orally Three times a day prn 12/13/2024 Active Furosemide 40 MG 1 tab(s) orally once a day Active Levothyroxine Sodium 50 mcg 1 tablet in the morning on an empty stomach Orally Once a day Active Ventolin HFA 108 (90 Base) MCG/ACT 2 puff(s) inhaled 4 times a day for 90 days 09/24/2018 Active Lisinopril 40 mg 1 tablet Orally Once a day Active Nystatin 435951 UNIT/GM 1 application Ex ternally Twice a day 07/01/2024 Active Omeprazole 40 MG 1 cap(s) orally once a day Active Vitamin D3 50 MCG (2000 UT) 2 tab(s) ora lly once a day 01/21/2019 Active Dorzolamide HCl-Timolol Mal 22.3-6.8 MG/ML 1 gtt in each eye 2 times a day for 90 days Active Citalopram Hydrobromide 10 MG 1 tab(s) orally once a day for 30 days Active Gabapentin 300 MG 2 caps orally 3 time s a day for 30 day(s) 05/26/2024 Active XALATAN EYE DROPS Ac tive PreserVision AREDS 2+Multi Vit - 1 cap(s) orally twice a day Active Biotin 5 MG 1 cap(s) orally once a day (qhs) 03/16/2018 Active Vitamin E 400 UNIT 1 cap(s) orally once a day Active FiberCon 1 TAB(S) ORALLY ONCE A DAY 03/16/2018 Active Calcium 600 + Minerals 600-200 MG-UNIT 1 tab(s) orally once a day Active Latanoprost 0.005 % 1 gtt in each eye on ce a day (at bedtime) Active Multivitamin - 1 tab(s) orally once a day Active Spiriva Respimat 2.5 MCG/ACT 2 puff(s) inhaled once a day Active Ipratropium-Albuterol 0.5-2.5 (3) MG/3ML 3 ml by nebulizer 4 times a day as needed 12/23/2018 Active Advair Diskus 250-50 MCG/ACT 1 puff(s) inhaled 2 times a day 10/07/2018 Active Singulair 10 MG 1 tab(s) orally once a day at bed time Active Vital Signs Blood pressure systolic 128 mm Hg 12/14/19 25 Blood pressure diastolic 70 mm Hg 025 Heart Rate 84 /min 12/13/2024 Height 64.50 in 12/13/2024 Weight 223.6 lbs 12/13/2024 BMI 37.78 kg/m2 12/13/2024 Encounters Encounter Location Date Provider Diagnosis [facility] [address] [place] [id number] 12/13/2024 Gabbie Juarez Bronchitis J40 and HTN (hypertension) I10 Assessments Encounter Date Diagnosis (ICD Code) Assessment Notes Treatment Notes Treatment Clinical Notes Section Notes 12/13/2024 Bronchitis (ICD-10 - J40) declines CXR today; good fluid intake; to use Duonebs tid until cough much improved 12/13/2024 HTN (hypertension) (ICD-10 - I10) Plan Of Treatment Medication Medication Name Sig Start Date Stop Date Notes Loratadine 10 MG 1 tab(s) orally once a day Cefuroxime Axetil 500 MG 1 tablet Orally every 12 hrs for 7 days 12/13/2024 Benzonatate 200 MG 1 capsule as needed Orally Three times a day prn 12/13/2024 Spiriva Respimat 2.5 MCG/ACT 2 puff(s) inhaled once a day Ipratropium-Albuterol 0.5-2. 5 (3) MG/3ML 3 ml by nebulizer 4 times a day as needed 12/23/2018 Advair Diskus 250-50 MCG/ACT 1 puff(s) i nhaled 2 times a day 10/07/2018 Singulair 10 MG 1 tab(s) orally once a day at bed time Treatment Notes Assessment Notes Bronchitis declines CXR today; good fluid intake; to use Duonebs tid until cough much improved Next Appt Details Follow Up: 1 Week, Reason: Progress Notes * SUZE VENEGASB:1945 ([age] yo F)Acc No.[id number]:12/13/2024 Progress Notes Patient: LIONEL ENCARNACION Provider: MATT Barrera :1945 A ge:79 Y S ex:Female Date:12/13/2024 Address:[address], [id number] Pcp:Sid Rodríguez Subjective: * Chief Complaints: * 1 . Bronchitis. * HPI: E NT/respiratory: 79 year old female presents with c/o sore throat. c/o cough P t sts at her last visit she was diagnosed with bronchitis and sts she did get antibitoics, but sts that this past week she has felt bad again. Pt sts she would like to know if there is anything else she can do or take to help with this. c/o nasal congestion. c/o rhinorrhea. c/o post nasal drainage. c/o facial pain/pressure. c/o chest congestion w heezing.? c/o body aches s ometimes; weather related. Denies : Fever. D enies : Short of Breath. D enies : smoking. * ROS: D ERMATOLOGY: no R megan. n o H cody. G ASTROENTEROLOGY: no N ausea. n o V omiting. U ROLOGY: no D ifficulty urinating. n o B lood in urine. * Medical History: A llergies, Depression, Asthma, COPD, Hypertension, Hypothyroidism, [employer]GER - Dr. 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 * Family History: F ather: 70 yrs, CHF, diagnosed with Heart Disease. M other: 80 yrs, diagnosed with Heart Disease. P aternal Grand Father: . P aternal Grand Mother: . M aternal Grand Father: . M aternal Grand Mother: . C claudette: alive, diagnosed with Cancer. S [place]: diagnosed with Heart Disease, Cancer. 1 brother(s) [...] 4 times a day , Taking Nystatin 081197 UNIT/GM Cream 1 application Externally Twice a [...] inhaled 2 times a day , Taking Rosuvastatin Calcium 20 MG Tablet 1 tablet Orally Once a day , Taking Singulair 10 MG Tablet 1 tab(s) orally once a day at bed time , Taking Ipratropium-Albuterol 0.5-2.5 (3) MG/3ML Solution 3 ml by nebulizer 4 times a day as needed , Discontinued predniSONE 20 MG Tablet 1 tablet with food or milk Orally Two times a day , Medication List reviewed and reconciled with the patient * Allergies: D examethasone, Penicillin, Neosporin, CeleBREX. Objective: * Vitals: W t: 223.6, Temp: 97.1, BP: 128/70, HR: 84, O2 Sat: 99% on RA, Nurse: CHRISTINA, Ht: 64.50, BMI:37.78. * Examination: G eneral Examination: General Appearance: N AD , alert , pleasant; periodic cough during exam/visit. HEENT: s clera and conjunctiva clear, PERRLA, TM's normal, translucent. Oral cavity: m ucosa moist and WNL , no erythema. Neck: s upple , no lymphadenopathy. Chest: c oarse wheezing bilaterally posteriorly throughout.? Heart: R RR. Assessment: * Assessment: 1. B nenita - J40 (Primary) 2 . H TN (hypertension) - I10 ? Plan: * Treatment: * Labs: * L ab: CBC Fingerstick (in house) (Collection Date & Time - 12/13/2024) Value Reference Range w bc 7.8 3.5 - 10 * l ym 29.5 15 - 50 * m id 6.6 2 - 15 * g ran 63.9 35 - 80 * r bc 4.51 3.5 - 5.5 * h gb 13.6 11.5 - 16.5 * h ct 42.2 35 - 55 * m cv 93.7 75 - 100 * m ch 30.2 25 - 35 * m chc 32.2 31 - 38 * p lat 169 100 - 400 * Dania Mathis 12/13/2024 02:1 6:03 PM > Provider reviewed results while patient in office.Gabbie Juarez 12/14/2024 01:00:10 PM > * Procedure Codes: G 2211 Complex e/[place], [address] CAPILLARY BLOOD DRAW, 95436 CBC WITH AUTO DIFF, 3074F SYST BP LT 130 MM HG, 3078F DIAST BP < 80 MM HG * Follow Up: 1 Week * Billing Information: * Visit Code: 24985 Office Visit, Est Pt., Level 3. * Procedure Codes: G2211 Complex e/[place]. [address] CAPILLARY BLOOD DRAW. 95640 CBC WITH AUTO DIFF. 3074F SYST BP LT 130 MM HG. 3078F DIAST BP < 80 MM HG. * Electronic signature of Nahomy Juarez APRN on 02/09/2025 at 02:07 PM EDT Sign off status: Pending * Provider: MATT Barrera Date: 0 12/13/2024 Generated for Shawnai robin/Joyceg/eTransmitting on: 0 02/09/2025 02:07 PM EDT History and Physical Notes * HPI (History of Present Illness) Category Sub-Category Detail Notes Category Not es ENT/respiratory sore throat facial pain/pressure Short of Breath cough Pt sts at her last v isit she was diagnosed with bronchitis and sts she did get antibitoics, but sts that this past week she has felt bad again. Pt sts she would like to know if there is anything else she can do or take to help with this Fever post nasal drainage chest congestion wheezing rhinorrhea nasal congestion smoking body aches sometimes; weather r elated Examination Category Sub-Category Detail Notes Category Not es General Examination HEENT: sclera and c onjunctiva clear, PERRLA, TM's normal, translucent Heart: RRR General Appearance: NAD , alert , pleasa nt; periodic cough during exam/visit Neck: supple , no lymphade nopathy Oral cavity: mucosa moist and WNL , no erythema Chest: coarse wheezing bila terally posteriorly throughout
--- OUTSIDE RECORDS SUMMARY | 2024-12-20 09:30 | XMS_ITS ---
Author Organization [facility] Address [address] [place] [id number] Care Team Providers Care Global Marketing Intern Name Role Phone Sid Rodríguez Primary Care Provider Juarez Gabbie Unavailable [phone] Allergies Allergen (clinical drug ingredient) Drug/Non Drug [...] Interpretation: Performing Lab: Notes/Report: Test performed by [facility], [employer] [facility] , [address], [place] [address] Reed Owens MD, Manager Hardware CLIA: [id number] Sodium 139 135-145 mmol/L Potassium 4.3 3.5-5.3 [...] times a day prn 12/13/2024 Active Nystatin 540549 UNIT/GM 1 application Externally Twice a day [...] Problem Status W/U Status Risk Notes Problem [id number] BMI 37.0-37.9, adult (Z68.37) Active confirmed Vital Signs Blood pressure systolic 120 mm Hg 12/21/19 25 Blood pressure diastolic 68 mm Hg 025 Heart Rate 96 /min 12/20/2024 Height 64.50 in 12/20/2024 Weight 224.4 lbs 12/20/2024 BMI 37.92 kg/m2 12/20/2024 Encounters Encounter Location Date Provider Diagnosis [facility] [address] [facility] [address] [place], [place] [id number] 12/20/2024 Gabbie Juarez Acute bronchitis J20 .9 [...] * SUZE VENEGASB:1945 ([age] yo F)Acc No.[id number]:12/20/2024 Annual Wellness Visit Patient: CHRISTELLE ENCARNACIONA Provider: MATT Barrera :1945 A ge:79 Y S ex:Female Date:12/20/2024 Address: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 18. B SD 37.0-37.9, adult - Z68.37 Plan: * Treatment: [...] by Creatinine 68 >59 - mL/min/1.73m2 * Gabbei Juarez 12/22/2024 02:43:10 PM > I spoke [...] 12/20/2024 03:58 :29 PM > faxed to [facility] Gabbie Cristobal 12/31/2024 04:19:38 PM >left Gabbie [...] VST, G2211 Complex e/[place], [address] CBC WITH AUTO DIFF, 1090F PRES/ABSN URINE [...] prn * Billing Information: * Visit Code: 27109 Office Visit, Est Pt., Level 4. Modifiers: 25 * Procedure Codes: G0439 ANNUAL WELLNESS VST; PPS SUBSQT VST. G2211 Complex e/[place]. [address] CBC WITH AUTO DIFF. 1090F PRES/ABSN URINE [...] of Nahomy Juarez APRN on 02/09/2025 at 02:09 PM EDT Sign off status: Pending * Provider: MATT Barrera Date: 0 12/20/2024 Generated for Cortney kelly/Lexi/Zeenatitting on: 0 02/09/2025 02:09 PM EDT History and Physical Notes * [...]
--- NOTE | 2025-02-09 14:07 | XR_ITS ---
FINAL REPORT CLINICAL HISTORY: Left clavicle pain FINDINGS: LEFT CLAVICLE 2 views were obtained. There is no acute fracture or dislocation. There are mild degenerative changes. A calcification is seen projecting in the superior joint space measuring 4 mm suspicious for joint body. Visualized joint spaces are normally aligned. Soft tissues are unremarkable. IMPRESSION: No acute bony abnormality. Findings suspicious for 4 mm joint body. Reviewed, Interpreted and Dictated by Deana Malone MD Transcribed by Cassie Walter Authenticated and [facility]
--- OUTSIDE RECORDS SUMMARY | 2025-02-09 14:08 | XMS_ITS | Patient Health Record ---
[facility] Organization [facility] Address [address] [facility] [address] [id number] Care Team Providers Care Hand Candle Dipper Name Role Phone Nichol Rodríguezian Primary Care Provider Gabbie Juarez Unavailable [phone] Ryann Neville Unavailable [phone] Allergies Allergen (clinical drug ingredient) Drug/Non Drug [...] Interpretation: Performing Lab: Notes/Report: results Pos A Urinalysis - Inhouse Reviewed date:07/01/2024 12:44:44 PM Interpretation: Performing Lab: Notes/Report: Color/Clarity yellow/clear Leuk neg Nitrite neg Urobili 3.2 Protein neg pH 7.0 Blood neg Sp. Gr. 1.015 Ketone neg Bili neg Gluc neg Influenza Screen (in house) Reviewed date:07/01/2024 12:42:51 PM Interpretation: Performing Lab: Notes/Report: results Neg Covid test (in house) Reviewed date:07/01/2024 12:42:31 PM Interpretation: Performing Lab: Notes/Report: Result: Pos P-Comprehensive Metabolic Pa carlo (CMP) Reviewed date:09/15/2024 08:59:20 AM Interpretation: Normal Performing Lab: Notes/Report: Test performed by [facility] [address] [place], [place] [address] , [address], [place] [address] Reed Owens MD, Banjo Repairer CLIA: [id number] Sodium 139 135-145 mmol/L Potassium 4.9 3.5-5.3 [...] 0.5 <0.2-1.2 mg/dL A/G Ratio 1.8 1.1-2.5 P-T4 Free (thyroxine) Reviewed date:09/15/2024 08:59:20 AM Interpretation: Normal Performing Lab: Notes/Report: Test performed by [facility] [address] [place] [address] [address], [address], [place] [address] Reed Owens MD, Banjo Repairer CLIA: [id number] Thyroxine Free (free T4) 1.34 0.86-1.76 ng/dL P-Lipid Panel Reviewed date:09/15/2024 08:59:20 AM Interpretation:trigs 210 Performing Lab: Notes/Report: Test performed by [facility] [address] [place] [address] [address], [address], [place] [address] Reed Owens MD, Banjo Repairer CLIA: [id number] Cholesterol 135 <200 mg/dL Triglycerides 210 <150 [...] Results: 37 Units: mg/dL % Change: -71% P-TSH Reviewed date:09/15/2024 08:59:21 AM Interpretation: Normal Performing Lab: Notes/Report: Test performed by [facility] [address] , [address], [place] [address] Reed Owens MD, Banjo Repairer CLIA: [id number] TSH 2.90 0.43-5.25 mU/L CBC Fingerstick (in house) Reviewed date:11/23/2024 12:23:56 [...] Interpretation:Normal Performing Lab: Notes/Report: Test performed by [facility] [address] [place] [address] , [address], [place] [address] Reed Owens MD, Banjo Repairer CLIA: [id number] Albumin/Creatinine Ratio, Urine <17.54 0-30 ug/mg Microalbumin, Urine, Random <0.3 Creatinine, Urine 17.1 CBC Venipuncture (in house) Reviewed date:12/21/2024 09:24:10 [...] Interpretation: Performing Lab: Notes/Report: Test performed by [facility] [address] [facility] , [address], [place] [address] Reed Owens MD, Banjo Repairer CLIA: [id number] Sodium 139 135-145 mmol/L Potassium 4.3 3.5-5.3 [...] 1 cap(s) orally once a day Active Singulair 10 MG 1 tab(s) orally once a day at bed time for 90 days Active PreserVision AREDS 2+Multi Vit - 1 [...] 1 cap(s) orally once a day Active Rosuvastatin Calcium 20 MG 1 tablet Orally Once a day for 90 days 06/14/2024 Active Nystatin 381663 UNIT/GM 1 application Externally Twice a day 07/01/2024 Active Cefuroxime Axetil 500 MG 1 tablet Orally every 12 hrs for 7 days 12/13/2024 Not-Taking Furosemide 40 MG 1 tab(s) orally once a day Active Lisinopril 40 mg 1 tablet Orally Once a day Active Ventolin HFA 108 (90 Base) MCG/ACT 2 puff(s) inhaled 4 times a day 09/24/2018 Active Loratadine 10 MG 1 tab(s) orally [...] xFluzone High Dose-private (65yr&older) Unknown 06/11/2024 Administered xFluzone (6mos and older)-trivalent IM Intramuscular 06/25/2013 Administered xFlu shot-36 months and older IM Intramuscular 07/13/2008 Administered xFlu shot- 6months-36 months of ajr-DMPS-JVDD-trival ent Unknown 05/18/2015 Administered xAdministration of injection IM Intramuscular 09/11/2009 Administered Tetanus-DT IM Intramuscular 09/05/2005 Administered Tetanus Tdap-Adacel (over 7yrs) Unknown 04/09/2017 Pending vaccination back ordered; pt will receive with next office visit Shingrix IM Intramuscular 05/06/2019 Administered Shingrix IM Intramuscular 06/13/2020 Administered Prevnar (PCV20) IM Intramuscular 10/27/2023 Administered Prevnar (PCV13) IM Intramuscular 07/05/2013 Administered PNEUMOVAX 23 VACCINE IM Intramuscular 01/26/2015 Administe red PNEUMOVAX 23 VACCINE Unknown 05/18/2015 Administered PNEUMOVAX 23 VACCINE IM Intramuscular 06/13/2020 Administe red Hepatitis B (20 and more) Unknown 06/23/2007 Administered Hepatitis B (20 and more) Unknown 07/30/2007 Administered Hepatitis B (20 and more) Unknown 01/01/2008 Administered Hepatitis B (20 and more) Unknown 01/01/2008 Administered Fluzone High Dose (65yr and older) IM Intramuscular 05/16/2014 Administered Fluzone High Dose (65yr and older) [...] Administered COVID 19 Moderna Unknown 10/25/2020 Administered COVID 19 Moderna Unknown 07/05/2021 Administered Problems Problem Type SNOMED Code ICD Code Onset Dates Problem Status W/U Status Risk Notes Problem Gastroesophageal reflux disease (014144184) GERD (gastroesophageal reflux disease) (K21.9) Active confirmed Problem Hypertension (98021145) HTN (hypertension) (I10) Active confirmed Problem Vitamin D deficiency (08074559) Vitamin D deficiency (E55.9) Active confirmed Problem 93949918 Essential hypert ension (I10) Active confirmed Problem 235752302 Hypertriglycerid emia (E78.1) Active confirmed Problem Constipation (01379731) Constipation (K59.00) Active confirmed Problem Hyperlipidaemia (20248970) Hyperlipemia (E78.5) Active confirmed Problem Osteopenia (243121735) Osteopenia (M85.80) Active confirmed Problem Arthritis (1886537) Arthritis (M19.90) Active confirmed Problem Chronic depression (237050903) Chronic depression (F32.9) Active confirmed Problem 367012373 COPD exacerbatio n (J44.1) Active confirmed Problem 199204097 Localized edema (R60.0) Active confirmed Problem Morbid obesity (disorder) (781517396) Morbid (severe) obesity due to excess calories (E66.01) Active confirmed Problem 689078922 Mixed hyperlipid emia (E78.2) Active confirmed Problem 308563321 Chronic pain syn drome (G89.4) Active confirmed Problem 282239626 Pulmonary nodule (R91.1) Active confirmed Problem 600416123 Peripheral vascu lar disease (I73.9) Active confirmed Problem 256427300 Acquired hypothyroidism (E03.9) Active confirmed Problem 769105369 Abnormal mammogr am of left breast (R92.8) Active confirmed Problem 10476764 Chronic obstruct cheyenne pulmonary disease, unspecified COPD type (J44.9) Active confirmed Problem Neuropathy (539767122) Neuropathy (G62.9) Active confirmed Problem Allergic rhinitis (95373373) Allergic rhinitis (J30.9) Active confirmed Problem 785167649 Macular degenera tion (H35.30) Active confirmed Problem 856572236 Primary osteoart hritis of both knees (M17.0) Active confirmed Problem 312196252 BMI 37.0-37.9, a dult (Z68.37) Active confirmed Problem Glaucoma (66290025) Glaucoma (H40.9) Active confirmed Problem Difficulty walking (971691397) Difficulty walking (R26.2) Active confirmed Problem 790594744 Cataract of left eye, unspecified cataract type (H26.9) Active confirmed Problem 950985448 Non morbid obesi ty (E66.9) Active confirmed Problem 98755730 Senile cataract of left eye, unspecified age-related cataract type (H25.9) Active confirmed Problem 78751146 Contusion of rig ht clavicle, initial encounter (S40.011A) Active confirmed Problem 679730776 Stage 2 moderate COPD by GOLD classification (J44.9) Active confirmed Problem 702933521 Use of cane as ambulatory aid (Z99.89) Active confirmed Vital Signs Heart Rate 96 /min 12/20/2024 Blood pressure diastolic 68 mm Hg 12/20/2024 Height 64.50 in 12/20/2024 Blood pressure systolic 120 mm Hg 12/20/2024 Weight 224.4 lbs 12/20/2024 BMI 37.92 kg/m2 12/20/2024 Encounters Encounter Location Date Provider Diagnosis [facility] [address] [place], [place] [id number] 02/16/2024 Sid Baird Acute contact dermat itis L25.9 [facility] [address] [place], [place] [id number] 03/30/2024 Sid Baird Essential hypertensi on I10 and Hyperlipemia E78.5 [facility] [address] [place], [place] [id number] 06/14/2024 Sid Baird Mixed hyperlipidemia E78.2 and Hypertriglyceridemia E78.1 [facility] [address] [place], [place] [id number] 07/01/2024 Ryann Crowdy COVID-19 U07.1 ; Dys uria R30.0 and Yeast infection B37.9 [facility] [address] [place], [place] [id number] 09/14/2024 Sid Baird Essential hypertensi on I10 ; Acquired hypothyroidism E03.9 ; Mixed hyperlipidemia E78.2 ; Hypertriglyceridemia E78.1 ; Chronic obstructive pulmonary disease, unspecified COPD type J44.9 and Non morbid obesity E66.9 [facility] [address] [place], [place] [id number] 10/20/2024 Sid Baird Influenza A J10.1 [facility] [address] [place], [place] [id number] 11/23/2024 Sid Baird COPD exacerbation J4 4.1 and Essential hypertension I10 [facility] [address] [place], [place] [id number] 12/13/2024 Gabbie Juarez Bronchitis J40 and HTN (hypertension) I10 [facility] [address] [facility] [address] [place], [place] [id number] 12/20/2024 Gabbie Juarez Acute bronchitis J20.9 ; [...] knees M17.0 and BMI 37.0-37.9, adult Z68.37 [facility] [address] [facility] [address] [place], [place] [id number] 02/17/2024 Sid Baird [facility] [address] [place] [id number] 05/26/2024 Sid Baird Neuropathy G62.9 [facility] [address] [facility] [address] [place], [place] [id number] 06/14/2024 Sid Baird Chronic obstructive pulmonary disease, unspecified COPD type J44.9 [facility] [address] [place], [place] [id number] 07/02/2024 Sid Baird Essential hypertensi on I10 [facility] [address] [place], [place] [id number] 07/08/2024 Sid Baird [facility] [address] [facility] [address] [place], [place] [id number] 09/15/2024 Sid Baird [facility] [address] [place], [place] [id number] 10/06/2024 Sid Baird Mixed hyperlipidemia E78.2 [facility] [address] [place], [place] [id number] 11/26/2024 Sid Baird [facility] [address] [place], [place] [id number] 12/03/2024 Sid Baird Chronic obstructive pulmonary disease, unspecified COPD type J44.9 [facility] [address] [place], [place] [id number] 01/20/2025 Sid Baird Acquired hypothyroid ism E03.9 [facility] [address] [place], [place] [id number] 02/02/2025 Sid Baird Mixed hyperlipidemia E78.2 and Bronchitis J40 Assessments Encounter Date Diagnosis (ICD Code) Assessment [...] 01/20/2025 Acquired hypothyroid ism (ICD-10 - E03.9) 02/02/2025 Mixed hyperlipidemia (ICD-10 - E78.2) 02/02/2025 Bronchitis (ICD-10 - J40) 09/14/2024 Mixed hyperlipidemia (ICD-10 - E78.2) 12/20/2024 Acquired hypothyroid ism (ICD-10 - E03.9) 12/13/2024 HTN (hypertension) (ICD-10 - I10) 07/01/2024 Yeast infection (ICD -10 - B37.9) [...] (ICD-10 - Z68.37) 06/14/2024 Other Application for Intrallect signed today Plan Of Treatment Pending Test Test Name Order Date colonoscopy 10/08/2023 Insurance Providers Payer Name Payer Address Payer Phone Subscriber Number Group Number Insured Name Patient Relationship to Insured Coverage Start Date Coverage End Date [employer] [address] [address] [place], [place] [id number] LIONEL VENEGAS Self - patient is the insured Medications Administered Medication Instructions Date of Administration Dosage Notes Depo- Medrol 40 mg/ml 09/09/2018 1 mL Dexamethasone 09/16/2018 2 mL Dexamethasone 12/23/2018 1 mL Medical (General) History Medical History History ICD Code Allergies Depression Asthma COPD Hypertension Hypothyroidism 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
--- OUTSIDE RECORDS SUMMARY | 2025-02-09 14:08 | XMS_ITS | Continuity of Care Document ---
Author Organization [facility] RICKY Alvarado NOTTINGHAM Address [address] [address] Care Team Providers Care Cafeteria Helper Name Role Phone [facility] Primary Care Provider Assessment No assessment recorded. Plan of Treatment Reminders Order Date Submit Date Provider Last Modified By Organization Details Last Modified Time Details Appointments [facility] UP 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 Please review this document and add these problems to the patient's chart manually as needed. Problem Notes None recorded. Procedures Surgical History Date Name Laterality Status Provider Name and Address Organization Details Recorded Time 01/08/20 24 Destruction Premalignant Lesion(s) completed Anusha Huynh [facility] 01/08/2024 11:09:38 03/10/20 18 Back Surgery completed Ebonie Garcia [facility] 03/23/2018 10:45:09 06/06/20 15 Back Surgery completed Ebonie Garcia [facility] 03/23/2018 10:44:27 Unlisted px accessory sinus completed Gloria Beckerholz [facility] 09/26/2016 10:19:44 Imaging Results None recorded. Procedure Notes None recorded. Medical Equipment None Reported. Allergies Allergen ID Allergen Name Allergen Category Reaction Reaction Severity Criticality Documentation Date Start Date Code Code System Note Provider Name and Address Organization Details Recorded Time 431433 Product containin g penicilli n (product) medicatio n Not available Not available Not available 07/12/20162013 00728 8001 SNOMED Comme nt: Creat ed By: Kiko alexander;Cre ated Date: 2:04: 02 PM; Not Available [facility] 6 03:13:49 423132 dexametha sone medicatio n Not available Not available Not available 07/12/20162013 3264 RxNorm Comme nt: Creat ed By: Kiko alexander;Cre ated Date: 014 2:05: 18 PM; Not Available [facility] 6 03:13:49 261105 Celebrex medicatio n Not available Not available Not available 07/12/20162013 00807 7 RxNorm Comme nt: Creat ed By: Kiko alexander;Cre ated Date: 014 2:05: 29 PM; Not Available [facility] 6 03:13:49 067173 bacitraci n / neomycin / polymyxin B / pramoxine medicatio n Not available Not available Not available 07/12/20162013 14394 0 RxNorm Comme nt: Creat ed By: Kiko alexander;Cre ated Date: 014 2:04: 18 PM; Not Available [facility] 6 05:00:15 Medications Name Sig Start Date [...] refills:0 Not Available Not Available Not Available [place] 10 mg-325 mg tablet Take 1 tablet [...] refills:0 Not Available Not Available Not Available [place] 7.5 mg-325 mg tablet Take 1 tablet every 6 hours by oral route as needed. 2017 active Not Available Not Available Not Avai lable [place] 5 mg-325 mg tablet Take 1 tablet [...] Time Tobacco Smoking Status Former Smoker Gloria Ranjana [facility] 09/26/2016 10:19:30 What Was The Date [...] SNOMED-CT Code Diagnosis ICD10 Code Diagnosis Note [id number] RONALD HERNANDEZ MD [address] [address] 01/13/2025 10:40:26 01/13/2025 11:37:28 Seborrheic keratosis 932954579 L82.1 nature of diagnosis discussed. 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 Has been present for years, not bothersome . Tried topicals w/o improvemen t. No great treatmentf /up with changes or concerns Melanocyti c nevus of skin 041485811 D22.72 nature of diagnosis discussed. Mole looks benign. See me with changef/up with changes or concerns History of malignant neoplasm of skin 262798476 Z85.828 L90.5 nature of diagnosis discussedf /up with changes or concerns Multiple b enign melanocytic nevi 067184351 D22.5 - Benign lesions seen on exam today- SPF 30 or higher broad-spec trum sunscreen recommende d with re-applica tion every 2 hours- Discussed sun protection measures, including wide-brimm ed hat, sun-protec tive clothing, and avoidance of sun during peak hours of 10am-4pm- Instructed to monitor for changes and to call us for appointmen t with any changing or worrisome lesions Solar lentigo 12225939 L 81.4 - Benign brown spots - Sun-induce d Health Concerns Section Related Observation LastModified by Organization Detai ls LastModified Time None Recorded Concern Status LastModified by Organization Details LastModified Time None Recorded Payers Encounter Date Sequence Insurance Name Policy Number Policy Edwards Covered Member ID Edwards Member ID Guarantor Name 01/13/2025 1 [facility] (MEDICARE REPLACEMENT/A DVANTAGE - PPO) [id number] Yesenia Venegas [id number] Yesenia Venegas Notes Date Note Type Note [...] had the flu RONALD HERNANDEZ MD [address] [place], [address], [facility] 01/13/2025 11:57:04 OBGyn Episode No OBEpisode recorded.
--- OUTSIDE RECORDS SUMMARY | 2025-02-09 14:09 | XMS_ITS | Encounter Summary ---
Author Organization Healthcare Address [address] [place] [address] Care Team Providers Care Multimedia Developer Name Role Phone Sid Rodríguez MD Primary Care Provider [phone] Reason for Visit * Reason Comments Med Refill Encounter Details Date Type Department Care Team (Late st Contact Info) Description 02/26/2022 Refill ID Clinic Medicine [facility] [address] [place] [address] King Del Toro MD [address] [place] [address] Social History Tobacco Use Types [...] on filedocumented in this encounter Care Teams Multimedia Developer Relationship Specialty Start Date End Date Sid Rodríguez MD [address] [place] [address] PCP - General 12/29/20 documented as of this encounter
--- OUTSIDE RECORDS SUMMARY | 2025-02-09 14:09 | XMS_ITS | Clinical Summary ---
Author Organization Healthcare Address [address] [place] [address] Care Team Providers Care Motion Picture Equipment Supervisor Name Role Phone Sid Rodríguez MD Primary Care Provider [phone] Medications omeprazole (PriLOSEC) [address] capsule [...] [facility]-Bone Density Scan 1945 [facility]-Depression Screening 1945 [facility]-/Child/Adol SDOH Screenings 1945 [facility]- SDOH Screenings 1963 [facility]-Adult SDOH Screenings 1963 [facility]-DTaP,Tdap,and Td Vaccines (1 - Tdap) 1964 [facility]-Zoster Vaccines (1 of 2) 1995 [facility]-Pneumococcal Vaccine: 50+ Years (2 of 2 - PCV) 05/18/2016 05/18/2015, 08/18/2012, 08/18/2010 [facility]-RSV Vaccine: 60+ Years or (1 - 1-dose 75+ series) 2020 [facility]-QAPCU-16 Vaccine ( - season) 2024 [facility]-Influenza Vaccine [...] age to complete this topic Care Teams Motion Picture Equipment Supervisor Relationship Specialty Start Date End Date Sid Rodríguez MD [address] [place] [address] [place] [address] PCP - General 12/29/20
--- OUTSIDE RECORDS SUMMARY | 2025-02-09 14:09 | XMS_ITS | Data Portability ---
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 Wadsworth is s/p extension of her fusion to include T11 through iliac screws on 03/[address] Mcnulty. She is doing well. She is taking about 4 pain pills a day. She was provided with a [place] refill today to take as needed. She [...] Last Modified Time Details Appointments FOLLOW UP COUNT INCLUDES THE [facility] 2025 10:30A Ector HERNANDEZ MD Not available Not available Not available Lab None recorded . Referral None recorded . Procedures None recorded . Surgeries None recorded . Imaging None recorded . Medication Orders [place] 7.5 mg-325 mg tablet 2017 018 [email or web address] [facility], [address], [address], [place], [address], 04/13/2018 14:20:08 Patient TargetsNo targets recorded. Patient Instructions Encounter Date Encounter Id Patient Instructions Last Modified By Organization Details Last Modified Time 06/15/2018 [id number] Spent 15 total minutes with the patient today. Greater than 50% of this time was spent counseling/coordi nation of care as documented in my assessment and plan above. [email or web address] Not available 06/16/2018 08:43:14 12/14/2018 [id number] Spent 15 total minutes with the patient today. Greater than 50% of this time was spent counseling/coordi nation of care as documented in my assessment and plan above. [email or web address] Not available 12/14/2018 14:38:04 Reason for Referral None Reported. Results Created Date Observation Date Name Description Value Unit Range Abnormal Flag Note LastModifiedBy Organization Detail LastModifiedTime 03/23/20 18 03/23/2018 XR, lumbo sacra l spine [facility] [address] [place] [address] Patiglenn echevarria Name: LIONEL echevarria : [id number] [...] MD on 03/23/20 18 10:51 AM [email or web address] [facility] [address] [place] [address], [phone], 03/25/2018 08:25:01 03/23/20 18 03/23/2018 XR, thora cic spine , 2 view [place] [address] [place] [address] Patiglenn t Name: LIONEL Duy echevarria : 945 George echevarria Orderi ng [...] Sommer MD on 03/23/20 18 10:[email or web address] [facility] [address], [address], 03/25/2018 08:25:00 04/13/20 18 04/13/2018 XR, lumbo sacra l spine , 2 or [address] [address] George echevarria Name: LIONEL echevarria : [id number] [...] Sommer MD on 018 3:04 PM [email or web address] [facility] [address] [place] [address], [phone], 04/13/2018 17:39:27 04/13/20 18 04/13/2018 XR, thora cic spine , [address] [address] George echevarria Name: LIONEL echevarria : 945 [...] Otilia Sommer MD on 018 4:07 PM [email or web address] [facility] [address], [address], 04/13/2018 17:38:58 06/15/20 18 06/15/2018 XR, lumbo sacra l spine , 2 or [address] [address] George echevarria Name: LIONEL echevarria : 945 [...] Sommer MD on 2017 2:19 PM [email or web address] [facility] [address] [place], [address], 06/18/2018 18:03:55 06/15/20 18 06/15/2018 XR, thora cic spine , 2 view [place] [facility] [address] [place] [address] [place] [address] Patiglenn t Name: LIONEL echevarria : 945 [...] Sommer MD on 2017 2:23 PM [email or web address] [facility] [address] [place], [address], 06/18/2018 18:03:55 12/15/19 19 12/14/2018 XR, lumbo sacra l spine , 2 or 3 view [place] [facility] [address] [place] [address] [place] [address] Patien t Name: LIONEL echevarria : 945 George echevarria Orderi ng Provid er: MATTHE W JOAN EXAM DATE: 2018 EXAM: XR LUMBAR [...] By: Otilia Sommer MD on 3:[email or web address] [facility] [address], [address], 12/17/2018 12:30:08 12/15/19 19 12/14/2018 XR, thora cic spine , [address] [address] Patiglenn t Name: LIONEL echevarria : 945 Patiglenn t Orderi ng Provid er: BILLY Mitchell JOAN [...] Otilia Sommer MD on 3:05 PM [email or web address] [facility] [address], [address], 12/17/2018 12:30:08 Result Notes Documentation Provider Name and Address Organization Details Recorded Time Xr, Lumbosacral Spine, 2 Or 3 View : [address] [address] Patient Name: LIONEL WADSWORTH Patient : 1945 Patient Ordering Provider: EDDIE MCNULTY EXAM DATE: 04/13/2018 EXAM: XR LUMBAR AP/LAT CLINICAL INFORMATION: Postoperative. IMAGES PROVIDED: AP, lateral, and coned-down views of the lumbar spine. COMPARISON: None. FINDINGS AND IMPRESSION: Spinal fusion is noted at T10-L2 level with pedicular screws and connecting rods. Surgical hardware is satisfactorily placed. No evidence of loosening or infection is seen. Interpreted By: Julio Cesar Sommer MD E MCNULTY MD [address] [place] [address], [phone], [facility] 04/13/2018 17:39:27 Xr, Thoracic Spine, 2 View : [place] [address] Patient Name: LIONEL WADSWORTH Patient : 1945 Patient Ordering Provider: EDDIE MCNULTY EXAM DATE: 04/13/2018 EXAM: XR THORACIC AP/LAT CLINICAL INFORMATION: Back pain. IMAGES PROVIDED: AP, and lateral views of the thoracic spine. COMPARISON: None. FINDINGS: Curvature, alignment, vertebral body heights are normal. Multilevel disc space reduction is seen with anterior and lateral osteophytes. Surgical hardware is seen in the lower thoracic and lumbar spine. No radiographic evidence of injury is noted. IMPRESSION: Degenerative changes of the cervical spine. Interpreted By: Julio Cesar Sommer MD E MCNULTY MD [address] [place] [address], [phone], [facility] 04/13/2018 17:38:58 Xr, Lumbosacral Spine, 2 Or 3 View : [place] [address] Patient Name: LIONEL WADSWORTH Patient : 1945 Patient Ordering Provider: EDDIE MCNULTY EXAM DATE: 06/15/2018 EXAM: XR LUMBAR AP/LAT CLINICAL INFORMATION: Postoperative. IMAGES PROVIDED: AP, lateral, and coned-down views of the lumbar spine. COMPARISON: None. FINDINGS AND IMPRESSION: Spinal fusion is noted at T11-S2 level with pedicular screws and connecting rods. Surgical hardware is satisfactorily placed. No evidence of loosening or infection is seen. Interpreted By: Julio Cesar Sommer MD E MCNULTY MD [address] [place] [address], [phone] [place] [address] 06/18/2018 18:03:55 Xr, Thoracic Spine, 2 View : [place] [address] Patient Name: LIONEL WADSWORTH Patient : 1945 Patient Ordering Provider: EDDIE MCNULTY EXAM DATE: 06/15/2018 EXAM: XR THORACIC AP/LAT CLINICAL INFORMATION: Postoperative. IMAGES PROVIDED: AP, lateral and swimmer's views of the thoracic spine. COMPARISON: None. FINDINGS AND IMPRESSION: Spinal fusion is noted at T11 and T12 level with pedicular screws and connecting rods, continuing down into the lumbar spine. Surgical hardware is satisfactorily placed. No evidence of loosening or infection is seen. Degenerative changes are seen at other levels. Interpreted By: Julio Cesar Sommer MD E MCNULTY MD [address] [place] [address], [phone] [place] [address] 06/18/2018 18:03:55 Xr, Lumbosacral Spine, 2 Or 3 View : [place] [address] Patient Name: LIONEL WADSWORTH Patient : 1945 Patient Ordering Provider: EDDIE MCNULTY EXAM DATE: 12/14/2018 EXAM: XR LUMBAR AP/LAT CLINICAL INFORMATION: Postoperative. IMAGES PROVIDED: AP, lateral, and coned-down views of the lumbar spine. COMPARISON: None. FINDINGS AND IMPRESSION: Spinal fusion is noted at T11-S2 level with pedicular screws and connecting rods. Surgical hardware is satisfactorily placed. No evidence of loosening or infection is seen. Other levels are normal. Interpreted By: Julio Cesar Sommer MD E MCNULTY MD [address] [place] [address], [phone], [facility] 12/17/2018 12:30:08 Xr, Thoracic Spine, 2 View : [facility] [address] [place] [address] Patient Name: LIONEL WADSWORTH Patient : 1945 Patient Ordering Provider: EDDIE MCNULTY EXAM DATE: 12/14/2018 EXAM: XR THORACIC AP/LAT CLINICAL INFORMATION: Back pain. IMAGES PROVIDED: AP, and lateral views of the thoracic spine. COMPARISON: None. FINDINGS AND IMPRESSION: Surgical hardware is seen in the lower thoracic spine for fusion. Degenerative changes are seen at other levels with anterior and lateral osteophytes and disc space reduction. Interpreted By: Julio Cesar Sommer MD E MCNULTY MD [address] [place] [address], [address], [facility] 12/17/2018 12:30:08 Problems Name Problem SNOMED Code Status Onset Date Resolution Date Notes Provider Name and Address Organization Details Recorded Time Spondylol isthesis 826910499 Active 2014 From Automated Load;Provi suzan: Misael, Fang;Sta tus: Active Not Available [facility] 6 07:38:10 Thigh pain 65789858 Active 2015 From Automated Load;Provi suzan: Yusuf Mcnulty atus: Active Not Available [facility] 6 07:38:10 Notes:Some problems listed i n Document: #[id number] could not be added to this patient's chart. Please review this document and add these problems to the patient's chart manually as needed. Problem Notes None recorded. Procedures Surgical History Date Name Laterality Status Provider Name and Address Organization Details Recorded Time 01/08/20 24 Destruction Premalignant Lesion(s) completed Anusha Huynh [facility] 01/08/2024 11:09:38 03/10/20 18 Back Surgery completed Ebonie Garcia [facility] 03/23/2018 10:45:09 06/06/20 15 Back Surgery completed Ebonie Garcia [facility] 03/23/2018 10:44:27 Unlisted px accessory sinus completed Gloria Beckerholz [facility] 09/26/2016 10:19:44 Imaging Results None recorded. Procedure Notes None recorded. Medical Equipment None Reported. Allergies Allergen ID Allergen Name Allergen Category Reaction Reaction Severity Criticality Documentation Date Start Date Code Code System Note Provider Name and Address Organization Details Recorded Time 378047 Product containin g penicilli n (product) medicatio n Not available Not available Not available 07/12/20162013 53695 8001 SNOMED Comme nt: Creat ed By: Kiko alexander;Cre ated Date: 014 2:04: 02 PM; Not Available [facility] 6 03:13:49 283486 dexametha sone medicatio n Not available Not available Not available 07/12/20162013 3264 RxNorm Comme nt: Creat ed By: Kiko alexander;Cre ated Date: 014 2:05: 18 PM; Not Available [facility] 6 03:13:49 498272 Celebrex medicatio n Not available Not available Not available 07/12/20162013 56172 7 RxNorm Comme nt: Creat ed By: Kiko alexander;Cre ated Date: 014 2:05: 29 PM; Not Available [facility] 6 03:13:49 338155 bacitraci n / neomycin / polymyxin B / pramoxine medicatio n Not available Not available Not available 07/12/20162013 54723 0 RxNorm Comme nt: Creat ed By: Kiko alexander;Cre ated Date: 014 2:04: 18 PM; Not Available [facility] 6 05:00:15 Medications Name Sig Start Date [...] refills:0 Not Available Not Available Not Available [place] 10 mg-325 mg tablet Take 1 tablet [...] refills:0 Not Available Not Available Not Available [place] 7.5 mg-325 mg tablet Take 1 tablet every 6 hours by oral route as needed. 2017 active Not Available Not Available Not Avai lable [place] 5 mg-325 mg tablet Take 1 tablet [...] Updated DateTime 12/14/2018 167.64 cm 30.3 kg/m2 91788.37 g 126 mm[Hg] 82 mm[Hg] Gloria Chilel [facility] 9 14:15:28 Date Recorded Body height Body mass index (BMI) Body weight Systolic blood pressure Diastolic blood pressure Provider Name and Address Organization Details Last Updated DateTime 04/13/2018 167.64 cm 30.3 kg/m2 88028.37 g 132 mm[Hg] 80 mm[Hg] Gloria Ranjana [facility] 8 13:33:42 Date Recorded Body height Body mass index (BMI) Body weight Systolic blood pressure Diastolic blood pressure Provider Name and Address Organization Details Last Updated DateTime 06/15/2018 167.64 cm 30.3 kg/m2 67026.37 g 126 mm[Hg] 82 mm[Hg] Gloriaelmer Chilel [facility] 8 13:08:58 Social History Question Answer Notes LastModified by Adezeat ion Details LastModified Time Tobacco Smoking Status [...] available 09/26 10:18:26 Medical History Condition Response Skin Cancer Y Squamous Cell Carcinoma Y Asthma Y Thyroid Disorder Y High Cholesterol Y Osteoporosis/Osteopenia Y Sleep Apnea Y Hypertension Y Gynecological HistoryNo gynecological history recorded. Obstetrics History GPAL:G 0 P 0 0 0 0 Past Encounters Encounter ID Performer Location Encounter Start Date Encounter Closed Date Diagnosis/Indication Diagnosis SNOMED-CT Code Diagnosis ICD10 Code Diagnosis Note [id number] EDDIE MCNULTY MD [facility] [address] [place] [address] 09/26/2016 09:18:16 09/26/2016 15:45:34 Spinal stenosis of lumbar region 69086705 M48.06 Spondylolisthesis 932298 003 M43.10 [id number] EDDIE MCNULTY MD [facility] [address] 11/18/2016 10:33:45 11/18/2016 11:15:12 [id number] EDDIE MCNULTY MD [facility] [address] [place] [address] 12/09/2016 13:18:44 12/10/2016 15:58:37 Spondylolisthesis 302413545 M43.10 [id number] EDDIE MCNULTY MD [facility] [address] [place] [address] 02/10/2017 10:20:34 02/12/2017 10:49:41 Spondylolisthesis 369378533 M43.10 [id number] EDDIE MCNULTY MD [facility] [address] [place] [address] 06/19/2017 10:58:53 06/19/2017 12:18:49 Low back pain 948175194 M54.5 [id number] TIARRA CORBIN PA-C [facility] [address] [place] [address] 01/22/2018 13:09:53 01/22/2018 14:30:04 Low back pain 700578285 M54.5 72F with AoC low back pain [...] occult fracture. pt agrees with this plan. [id number] EDDIE MCNULTY MD [facility] [address] [place] [address] 02/05/2018 12:57:47 02/05/2018 14:41:13 Spondylolisthesis 472185893 M43.10 [id number] EDDIE MCNULTY MD [facility] [address] [place] [address] 03/23/2018 10:24:53 03/23/2018 10:53:32 [id number] EDDIE MCNULTY MD [facility] [address] [place] [address] 04/13/2018 13:00:58 04/13/2018 16:14:57 Lumbar disc prolapse with radiculopathy 611326398 M51.16 [id number] LOLA GALE PA-C [facility] [address] [place] [address] 06/15/2018 12:40:20 06/19/2018 16:09:34 Postoperative care 133330504 Z48.89 Here today for a scheduled post-op [...] agrees with the plan as stated above. [id number] LOLA GALE PA-C [facility] [address] [place] [address] 12/14/2018 13:35:37 12/15/2018 15:08:14 Low back pain 684929212 M54.5 Mrs. Wadsworth is here today status post T11- Iliac [...] agrees with the plan as stated above. [id number] [place] [address] 01/08/2024 10:34:41 01/08/2024 11:20:16 Seborrheic keratosis 746523687 L82.1 nature of diagnosis discussed. 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 Has been present for years, not bothersome . Tried topicals w/o improvemen t. No great treatmentf /up with changes or concerns Actinic keratosis 415516 [address] todayNo wound care givenFup with change or concern Melanocyti c nevus of skin 789406325 D22.72 nature of diagnosis discussed. Mole looks benign. See me with changef/up with changes or concerns History of malignant neoplasm of skin 809502572 Z85.828 L90.5 nature of diagnosis discussedf /up with changes or concerns [id number] RONALD HERNANDEZ MD [address] [address] 01/13/2025 10:40:26 01/13/2025 11:37:28 Seborrheic keratosis 332345427 L82.1 nature of diagnosis discussed. Between breasts looks benignf/up with changes or concerns Senile angioma 8987259 I 78.1 nature of diagnosis discussedf /up with changes or concerns Granuloma annulare 97155 009 L92.0 nature of diagnosis discussed further. Has been present for years, not bothersome . Tried topicals w/o improvemen t. No great treatmentf /up with changes or concerns Melanocyti c nevus of skin 941355098 D22.72 nature of diagnosis discussed. Mole looks benign. See me with changef/up with changes or concerns History of malignant neoplasm of skin 125950879 Z85.828 L90.5 nature of diagnosis discussedf /up with changes or concerns Multiple b enign melanocytic nevi 161691828 D22.5 - Benign lesions seen on exam today- SPF 30 or higher broad-spec trum sunscreen recommende d with re-applica tion every 2 hours- Discussed sun protection measures, including wide-brimm ed hat, sun-protec tive clothing, and avoidance of sun during peak hours of 10am-4pm- Instructed to monitor for changes and to call us for appointmen t with any changing or worrisome lesions Solar lentigo 23440914 L 81.4 - Benign brown spots - Sun-induce d Health Concerns Section Related Observation LastModified by Organization Detai ls LastModified Time None Recorded Concern Status LastModified by Organization Details LastModified Time None Recorded Advance Directives Directive None Recorded Payers Insurance Date Sequence Insurance Name Policy Number Policy Edwards Covered Member ID Edwards Member ID Guarantor Name 01/17/2025 1 [facility] (MEDICARE REPLACEMENT/A DVANTAGE - PPO) [id number] Lionel Gordillo Theo [id number] Lionel Gordillo W[place] Notes Date Note Type Note Provider Name and Address Organization Details Recorded Time 04/13/2018 text/html Ms. Wadsworth reports occasional leg pain, but mostly back [...] in size since she first noticed it. [facility] [address], [place], [address], [facility] 04/13/2018 15:16:55 06/15/2018 text/html Mrs. Wadsworth is her e today for a scheduled [...] thoracic and lumbar xrays. LOLA GALE PA-C [address] [place] [address], [address], [facility] 06/16/2018 08:44:41 12/14/2018 text/html Mrs. Wadsworth is her e today status post T11- [...] thoracic and lumbar xrays. LOLA GALE PA-C [address] [place] [address], [phone], [facility] 12/14/2018 14:40:21 01/08/2024 text/html Patient presents with skin lesion.Location: mole between breast, back , LL ankleOnset/Timing: a month or so ago RONALD HERNANDEZ MD [address] [place] [address], [phone], [facility] 01/08/2024 11:32:46 01/13/2025 text/html Annual, FSE. [...] had the flu RONALD HERNANDEZ MD [address] [place], [address], [facility] 01/13/2025 11:57:04 OBGyn Episode No OBEpisode recorded.
== END 2025-02-09 23:59 | disposition home or self-care (01) ==
LOC: RAD 14:04
PROVIDERS: PCP Family Medicine; Visit Provider Physician Assistant Surgical
DX: S43.202A Unspecified subluxation of left sternoclavicular joint, initial encounter (principal); R93.7 Abnormal findings on diagnostic imaging of other parts of musculoskeletal system
CPT/HCPCS: 73000

== ENCOUNTER 2025-03-15 13:57 | Outpatient (RCR) | payer MEDICARE, SELFPAY ==
--- NOTE | 2025-03-15 14:58 | HMH.PTOPEV ---
PT Outpatient Evaluation Rehab PT Outpatient Evaluation Start: 03/15/25 13:59 Freq: Status: Active Protocol: Document 03/15/25 13:59 JUDE (Rec: 03/15/25 14:58 JUDE [id number]) E-signed By Walt Nina, PT Outpatient Therapy Subjective History Subjective History Pt is a 79 yof who is referred to [facility] outpatient PT with complaints of left buttock/hip pain. The pt reports that this pain has been ongoing for approximately 3 months. Reports that her pain is worsened with standing/walking immediately but also worsens with sitting for long periods if in a firm chair. Pt reports that she uses a cane most of the time , but will also use a walker or power scooter when walking longer distances. Pt reports that she [facility] but has had to stop recently due to cellulitis. Pt is hopeful to return to that soon. Pt lives alone in a house with 1 [id number]. Pt reports a lot of difficulty with stairs. PMH: Sternoclavicular joint subluxation Abnormality of lung on CXR Allergic rhinitis Smoking greater than 30 pack years Chronic hypoxemic respiratory failure History of asthma Allergies COPD (chronic obstructive pulmonary disease) Dyspnea on exertion 3 prior lumbar surgeries. New diagnosis of No cancer in past 12 months? Chief Complaint Pain Symptom Type Ache,Sharp Symptoms Relieved By Nothing Symptoms Aggravated Supine,Sitting,Walking,Lifting By Prior Functional None Limitations Current Functional Lifting,Housework,Standing,Squatting,Walking,Stairs, Limitations Balance Symptom Description Constant but Variable,Activity Dependent Level of pain today 6 (0-10) Pain scale - at its 3 best (0-10) Pain scale - at its 9 worst (0-10) Lumbopelvic Eval Posture Thoracic Spine Neutral Posture Standing Position Lumbar Spine Posture Flexed Standing Position Assistive device Assistive Devices None / NA Gait Observation General Gait Pattern Antalgic Gait,Wide Based Gait,Decrease Weight Bear (L), Observation Decrease Stride Lngth (R) Palapation tenderness left buttock tenderness Yes: TTP 3/4 along glute medius, and greater trochanter Hip/Knee Eval MMT Hip Flexion Strength 2+ Poor+ Grade Hip Abduction 2 Poor Strength Grade Hip Adduction 2- Poor- Strength Grade Hip Extension 2 Poor Strength Grade Knee Extension 3 Fair Strength Grade Knee Flexion 3+ Fair+ Strength Grade Special Tests Hip Piriformis Test Positive Left Hip Scouring ( Positive Left Quadrant) Test Lower Extremity Functional Index Activities Today, do you or would you have any difficulty at all with: a.Any of your usual Quite a bit of difficulty work, housework or school activities b. Your usual Extreme difficulty or unable to perform activity hobbies, recreational or sporting activities c. Getting into or Moderate difficulty out of the bath d. Walking between Moderate difficulty rooms e. Putting on your Extreme difficulty or unable to perform activity shoes or socks f. Squatting Quite a bit of difficulty g. Lifting an object Moderate difficulty , like a bag of groceries from the floor h. Performing light Moderate difficulty activities around your home i. Performing heavy Extreme difficulty or unable to perform activity activities around your home j. Getting into or Moderate difficulty out of a car k. Walking 2 blocks Extreme difficulty or unable to perform activity l. Walking a mile Extreme difficulty or unable to perform activity m. Going up or down Extreme difficulty or unable to perform activity 10 stairs (about 1 flight of stairs) n. Standing for 1 Extreme difficulty or unable to perform activity hour o. Sitting for 1 Quite a bit of difficulty hour p. Running on even Extreme difficulty or unable to perform activity ground q. Running on uneven Extreme difficulty or unable to perform activity ground r. Making sharp Extreme difficulty or unable to perform activity turns while running fast s. Hopping Extreme difficulty or unable to perform activity t. Rolling over in Quite a bit of difficulty bed LEFI Score Lower Extremity 14 Functional Index Score Miscellaneous Dx PT Eval Objective Objective TS: Unable to initiate bilaterally Outpatient Therapy Assessment Impairments Problems/ Palpation Tenderness,Impaired Strength,Impaired Gait Impairmments Pattern,Impaired Walking,Impaired Standing,Impaired Household Care,Impaired Stair Climbing,Impaired Balance ,Subjective C/O Pain Prognosis Rehab Potential Fair Comment w HEP compliance Clinical Impression Consistent with Yes Diagnosis Consistent with Gluteal Tendinitis (M76.02) Short Term Goals Number of Weeks 4 Decreased Palpation Yes: 2/4 to TTP assessment above Tenderness Increase Strength Yes: 3+/5 to L hip complex Improve Gait Pattern Yes: Narrowed Gait with Assistive Device Increase Ability to Yes: 5-10 minutes without increasing pain Stand Improve LEFI Score Yes: >24 Decrease Subjective Yes: 5/10 with above assessment C/O Pain Improve Self Care/ Yes Self Management Patient to be Ind w/ Yes HEP Shelter Goals Number of Weeks 8 Decreased Palpation Yes: 0-1/4 to TTP assessment above Tenderness Increase Strength Yes: 4/5 to L hip complex Increase Ability to Yes: 100 ft with AAD without increasing hip pain Walk Increase Ability to Yes: 20-30 minutes at a time to be able to cook a meal Stand Improve Ability to Yes: Flight of stairs with hand rail Climb Stairs Improve LEFI Score Yes: >32 Decrease Subjective Yes: 2-3/10 with above assessment C/O Pain Patient to be Ind w/ Yes Advanced HEP Outpatient Therapy Plan of Care Treatment Plan May Include Therapeutic Exercise Yes Including Home Exercise Program Manual Therapy Yes Techniques Neuromuscular Re- Yes education Therapeutic Yes Activities to Return to Previous Functional/Work Level Gait Training Yes ADL/Self Care Yes Education Thermal Modalities Yes Electrical Yes Stimulation Iontophoresis Yes Manual Lymphatic Yes Drainage Eval/Re-Eval Yes Frequency Times per week 2 Duration Number of Weeks 8 Addendums This patient is a No candidate for social or vocational rehab ? Patient/Guardian Yes verbally acknowledges understanding of treatment program and consents to further treatment? Patient/Guardian Yes verbally acknowledges understanding of diagnosis, prognosis and goals for treatment? Eval Complexity PT Charges 98877 - High Complexity Shoulder/Elbow Eval Shoulder Objective Measurements Elbow Objective Measurements PHYSICIAN CERTIFICATION: I certify the specified therapy services for Yesenia Venegas are required, authorized, and reviewed every 30 days.
== END 2025-03-15 23:59 | disposition home or self-care (01) ==
LOC: PT 13:57
PROVIDERS: PCP Family Medicine; Visit Provider Family Medicine
DX: M79.18 Myalgia, other site (principal)
CPT/HCPCS: 97163; 97530

== ENCOUNTER 2025-04-05 13:39 | Outpatient (RCR) | payer MEDICARE, SELFPAY ==
--- NOTE | 2025-04-05 15:20 | HMH.OPLYMPH ---
Rehab Inpt Wound Evaluation Rehab OP Lymphedema Evaluation Start: 04/05/25 13:55 Freq: Status: Active Protocol: Document 04/05/25 15:07 PHOLOUISE (Rec: 04/05/25 15:20 PHORNE [id number]) E-signed By Rubens Urena, PT Subjective/History History History This is the initial PT lymphedema eval for Yesenia Venegas, 79 yowf who presents with c/o B LE increased edema, pain, and discoloration for ~ 2 mos. She reports suffering from cellulitis prior to her symptoms beginning. She reports being treated successfully with abx but states, My legs just don't feel like they're back to normal. She reports increased tenderness to palpation, increased LE stiffness, and difficulty with ADLs which have all occurred since her bout of cellulitis. PMH: HTN, COPD, smoker, 3 lumbar spine surgeries, R RCT repair. Subjective Subjective Pt reports current pain is 2/10, but I haven't been standing on my legs, at worst pain is 8/10. Moderate B lower leg erythema. 2/4 TTP noted to B lower legs. Minimal palpable edema noted, 1+ pitting on the foot at its worst. Recent OLGA LIDIA performed was 1.05 on R LE, 1.02 on the L LE. Lymphedema Eval Classification of Lymphedema Secondary Lymphedema Yes: CVI Stemmer's sign Stemmer's Sign no Stage of Lymphedema Lymphedema stages Stage I (Pitting edema, reduces w/ elevation, no fibrosis) Skin Changes Dry Skin Yes Taut, Shiny Skin Yes Redness Yes Discoloration of Yes Skin Other Changes Yes Pain Scale Pain Scale (0-10) 8 Affected Extremities Areas Affected by Right Lower Extremity,Left Lower Extremity Lymphedema/Edema Lower Extremity Measurements Right MTP Measurement (cm) 22.1 Heel Measurement (cm 33.0 ) 10 cm Proximal to 23.2 Lateral Malleoli Measurement (cm) 20 cm Proximal to 33.2 Lateral Malleoli Measurement (cm) 30 cm Proximal to 39.4 Lateral Malleoli Measurement (cm) 40 cm Proximal to 0 Lateral Malleoli Measurement (cm) 50 cm Proximal to 0 Lateral Malleoli Measurement (cm) 60 cm Proximal to 0 Lateral Malleoli Measurement (cm) Lower Extremity 150.9 Measurement Total ( cm) Left MTP Measurement (cm) 22.3 Heel Measurement (cm 34.2 ) 10 cm Proximal to 22.8 Lateral Malleoli Measurement (cm) 20 cm Proximal to 32.6 Lateral Malleoli Measurement (cm) 30 cm Proximal to 38.6 Lateral Malleoli Measurement (cm) 40 cm Proximal to 0 Lateral Malleoli Measurement (cm) 50 cm Proximal to 0 Lateral Malleoli Measurement (cm) 60 cm Proximal to 0 Lateral Malleoli Measurement (cm) Lower Extremity 150.5 Measurement Total ( cm) Manual Lymphatic Drainage Treatment Area MLD Treatment Area Right Lower Extremity,Left Lower Extremity Wound Problems/Impairments Impairments Problems/ Palpation Tenderness,Impaired Endurance,Impaired Impairmments Walking,Impaired Dressing,Impaired Household Care, Increased Edema,Lymphedema Present,Subjective C/O Pain, Impaired Self Care/Self Management Prognosis Rehab Potential Good Comment Signs and symptoms consistent with secondary lymphedema due to prior bout of cellulitis combined with underlying CVI. Skilled therapy is indicated in order to reduce overall edema in B LE and decrease c/o pain in order to improve pt QOL. 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 Outpatient Therapy Plan of Care Treatment Plan May Include Therapeutic Exercise Yes Including Home Exercise Program Manual Therapy Yes Techniques Neuromuscular Re- Yes education Therapeutic Yes Activities to Return to Previous Functional/Work Level ADL/Self Care Yes Education Orthotics/Bracing/ Yes Splinting Manual Lymphatic Yes Drainage Eval/Re-Eval Yes Frequency Times per week 2 Duration Number of Weeks 4 Addendums This patient is a No candidate for social or vocational rehab ? Patient/Guardian Yes verbally acknowledges understanding of treatment program and consents to further treatment? Patient/Guardian Yes verbally acknowledges understanding of diagnosis, prognosis and goals for treatment? Eval Complexity PT Charges 40152 - High Complexity PHYSICIAN CERTIFICATION: I certify the specified therapy services for Yesenia J Venegas are required, authorized, and reviewed every 30 days.
== END 2025-04-05 23:59 | disposition home or self-care (01) ==
LOC: PT 13:39
PROVIDERS: Visit Provider Physician Assistant
DX: M79.661 Pain in right lower leg (principal); M79.662 Pain in left lower leg; I89.0 Lymphedema, not elsewhere classified
CPT/HCPCS: 97163

== ENCOUNTER 2025-04-06 15:00 | Outpatient (RCR) | payer MEDICARE, SELFPAY ==
--- NOTE | 2025-04-20 15:21 | HMH.RHREAS ---
Rehab Reassessment Rehab OP Re-assessment Start: 03/22/25 13:58 Freq: Status: Discharge Protocol: Document 04/20/25 14:41 JUDE (Rec: 04/20/25 15:20 JUDE [id number]) E-signed By Walt Nina, PT Lower Extremity Functional Index Activities Today, do you or would you have any difficulty at all with: a.Any of your usual A little bit of difficulty work, housework or school activities b. Your usual Moderate difficulty hobbies, recreational or sporting activities c. Getting into or No difficulty out of the bath d. Walking between A little bit of difficulty rooms e. Putting on your Quite a bit of difficulty shoes or socks f. Squatting Moderate difficulty g. Lifting an object Moderate difficulty , like a bag of groceries from the floor h. Performing light Moderate difficulty activities around your home i. Performing heavy Extreme difficulty or unable to perform activity activities around your home j. Getting into or Quite a bit of difficulty out of a car k. Walking 2 blocks Extreme difficulty or unable to perform activity l. Walking a mile Extreme difficulty or unable to perform activity m. Going up or down Extreme difficulty or unable to perform activity 10 stairs (about 1 flight of stairs) n. Standing for 1 Extreme difficulty or unable to perform activity hour o. Sitting for 1 A little bit of difficulty hour p. Running on even Extreme difficulty or unable to perform activity ground q. Running on uneven Extreme difficulty or unable to perform activity ground r. Making sharp Extreme difficulty or unable to perform activity turns while running fast s. Hopping Extreme difficulty or unable to perform activity t. Rolling over in Quite a bit of difficulty bed LEFI Score Lower Extremity 24 Functional Index Score Rehab Re-assessment Subjective Subjective Pt reports that she is 10-15% improved. Pt reports that she has noticed an improvement in her endurance. Pt reports that she has returned to water aerobics daily but is not doing all of the exercises. Pt reports that she still has a lot of difficulty with standing and walking especially for longer periods. Pt reports that she would like to continue with PT. Pt reports her pain at a 11/25 this date. Objective Objective Notes MILAGROS: 24 (14 on IE) MMT: L hip - Flexion: 3+/5 - ABD: 3+/5 - ADD: 4/5 Gait: Narrowed Gait, antalgic gait TTP: 2/4 to L Hip Assessment Progress Assessment Progressing as Expected Assessment Notes Pt has attended one month of PT, with sessions consisting of mostly standing exercises, to promote standing endurance, LE strengthening, balance improvements and improved functional movement patterns. Pt has responded well so far, demonstrating improvements in balance, strength and overall quality of life. Skilled PT remains indicated for this pt to continue to promote a return to her PLOF and to address her remaining impairments. PT Patient Goals PT Short Term ST/8 Patient Goals PT Aged Or Disabled Carer Patient LT Goals Plan Plan Continue as per initial POC, utilizing the following activities. Frequency of Therapy 2/week Duration of Therapy 4 weeks Therapeutic Exercise Yes Including Home Exercise Program Manual Therapy Yes Techniques Neuromuscular Re- Yes education Therapeutic Yes Activities to Return to Previous Functional/Work Level Gait Training Yes ADL/Self Care Yes Education Thermal Modalities Yes Electrical Yes Stimulation Ultrasound/ Yes Phonophoresis Iontophoresis Yes Massage Yes Manual Lymphatic Yes Drainage Eval/Re-Eval Yes Time and Billing Re-Eval Time 10 Re-Eval Billing 0 Units Charge for PT No reassessment? PHYSICIAN CERTIFICATION: I certify the specified therapy services for Yesenia Venegas are required, authorized, and reviewed every 30 days.
== END 2025-04-06 23:59 | disposition home or self-care (01) ==
LOC: PT 15:00
PROVIDERS: PCP Family Medicine; Visit Provider Family Medicine
DX: M79.18 Myalgia, other site (principal)
CPT/HCPCS: 97110; 97140; 97530

== ENCOUNTER 2025-05-17 16:00 | Outpatient (RCR) | payer MEDICARE, SELFPAY ==
--- NOTE | 2025-05-10 15:35 | HMH.RHREAS ---
Rehab Reassessment Rehab OP Re-assessment Start: 05/10/25 14:39 Freq: Status: Active Protocol: Document 05/10/25 14:55 SUSANABERNADETTE (Rec: 05/10/25 15:34 PHOLOUISE [id number]) E-signed By Rubens Urena, PT Rehab Re-assessment Subjective Subjective Pt continues to c/o increased edema in B LE. She reports, I can't get my shows on, it's just so tight I can't bend down there. She also states, My legs don' t look very swollen today because I went to the pool this morning, but they will look worse tomorrow. Pt is present today for her 1st follow up visit since her initial evaluation. Objective Objective Notes Edema: No pitting edema noted this date in B lower legs . Circumferential measurements: R LE total is 148.3 cm which is -2.6 cm since IE. L LE total is 146.3 cm which is -4.2 cm since IE. TTP: 2/4 to B lower legs. Erythema: MILD B lower leg blanchable erythema LLIS: 59 Assessment Progress Assessment Slower Than Expected Assessment Notes Pt has shown some decrease in overall edema in B LE despite not being present for any visits for lymphedema treatment since her initial evaluation. Skilled therapy remains indicated to continue edema control in an effort to improve pt QOL. 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 Plan Plan Updated POC sent to provider for their continued input and approval. Continued pt treatment may include any or all of the following interventions in order to improve functional outcomes and aid pt improvement in QOL: Frequency of Therapy 2 x/wk Duration of Therapy 4 wks Therapeutic Exercise Yes Including Home Exercise Program Manual Therapy Yes Techniques Neuromuscular Re- Yes education Therapeutic Yes Activities to Return to Previous Functional/Work Level ADL/Self Care Yes Education Manual Lymphatic Yes Drainage Eval/Re-Eval Yes Time and Billing Re-Eval Time 16 Re-Eval Billing 0 Units Charge for PT No reassessment? PHYSICIAN CERTIFICATION: I certify the specified therapy services for Yesenia Venegas are required, authorized, and reviewed every 30 days.
== END 2025-05-17 23:59 | disposition home or self-care (01) ==
LOC: PT 16:00
PROVIDERS: Visit Provider Physician Assistant
DX: M79.662 Pain in left lower leg (principal); M79.661 Pain in right lower leg; I89.0 Lymphedema, not elsewhere classified
CPT/HCPCS: 97140

== ENCOUNTER 2025-05-17 17:00 | Outpatient (RCR) | payer MEDICARE, SELFPAY | END 2025-05-17 23:59 | disposition home or self-care (01) | LOC: PT 17:00 | PROVIDERS: PCP Family Medicine; Visit Provider Family Medicine | DX: M79.18 Myalgia, other site (principal) | CPT/HCPCS: 97110; 97530 ==

== ENCOUNTER 2025-05-24 14:00 | Outpatient (RCR) | payer MEDICARE, SELFPAY ==
--- NOTE | 2025-05-24 14:28 | HMH.RHREAS ---
Rehab Reassessment Rehab OP Re-assessment Start: 05/19/25 16:52 Freq: Status: Active Protocol: Document 05/24/25 13:22 JUDE (Rec: 05/24/25 14:28 JUDE [id number]) E-signed By Walt Nina PT Lower Extremity Functional Index Activities Today, do you or would you have any difficulty at all with: a.Any of your usual Moderate difficulty work, housework or school activities b. Your usual Quite a bit of difficulty hobbies, recreational or sporting activities c. Getting into or Extreme difficulty or unable to perform activity out of the bath d. Walking between Moderate difficulty rooms e. Putting on your Quite a bit of difficulty shoes or socks f. Squatting Moderate difficulty g. Lifting an object Moderate difficulty , like a bag of groceries from the floor h. Performing light Moderate difficulty activities around your home i. Performing heavy Extreme difficulty or unable to perform activity activities around your home j. Getting into or Quite a bit of difficulty out of a car k. Walking 2 blocks Extreme difficulty or unable to perform activity l. Walking a mile Extreme difficulty or unable to perform activity m. Going up or down Extreme difficulty or unable to perform activity 10 stairs (about 1 flight of stairs) n. Standing for 1 Extreme difficulty or unable to perform activity hour o. Sitting for 1 Quite a bit of difficulty hour p. Running on even Extreme difficulty or unable to perform activity ground q. Running on uneven Extreme difficulty or unable to perform activity ground r. Making sharp Extreme difficulty or unable to perform activity turns while running fast s. Hopping Extreme difficulty or unable to perform activity t. Rolling over in Quite a bit of difficulty bed LEFI Score Lower Extremity 15 Functional Index Score Rehab Re-assessment Subjective Subjective Pt reports that she is 50% improved since her initial evaluation. Pt reports that when she first began PT, her hip hurt constantly. She reports that now her hip only hurts on and off. She reports that she has been back to doing her aquatic exercise class each morning. She reports that she feels like she is able to stand for longer periods at a time, estimating that she can stand for 15-20 minutes to do dishes or cook a small meal. She rates her pain in her L hip at a 5/10 this date. Objective Objective Notes LEFS: 15 (14 on IE) MMT: L hip - Flexion: 4/5 - ABD: 11/20 - ADD: 11/20 Gait: Narrowed Gait, antalgic gait with SP Cane TTP: 08/21 to L Hip Assessment Progress Assessment Progressing as Expected Assessment Notes Pt has attended two months of PT, with sessions consisting of mostly standing exercises, to promote standing endurance, LE strengthening, balance improvements and improved functional movement patterns. Pt has responded well so far, demonstrating improvements in balance, strength and overall quality of life. Skilled PT remains indicated for this pt to continue to promote a return to her PLOF and to address her remaining impairments. Pt is beginning to prepare for discharge from PT. PT Patient Goals PT Short Term ST/8 Patient Goals PT Skilled Nursing Patient LT/8 Goals Plan Plan Continue as per initial POC, utilizing the following methods and activities. Frequency of Therapy 2/week Duration of Therapy 4 weeks Therapeutic Exercise Yes Including Home Exercise Program Manual Therapy Yes Techniques Neuromuscular Re- Yes education Therapeutic Yes Activities to Return to Previous Functional/Work Level Gait Training Yes ADL/Self Care Yes Education Thermal Modalities Yes Electrical Yes Stimulation Ultrasound/ Yes Phonophoresis Iontophoresis Yes Massage Yes Manual Lymphatic Yes Drainage Eval/Re-Eval Yes Time and Billing Re-Eval Time 10 Re-Eval Billing 0 Units Charge for PT No reassessment? PHYSICIAN CERTIFICATION: I certify the specified therapy services for Yesenia Venegas are required, authorized, and reviewed every 30 days.
== END 2025-05-24 23:59 | disposition home or self-care (01) ==
LOC: PT 14:00
PROVIDERS: PCP Family Medicine; Visit Provider Family Medicine
DX: M79.18 Myalgia, other site (principal)
CPT/HCPCS: 97530

== ENCOUNTER 2025-06-15 09:00 | Outpatient (RCR) | payer MEDICARE, SELFPAY | END 2025-06-15 23:59 | disposition home or self-care (01) | LOC: PT 09:00 | PROVIDERS: Visit Provider Physician Assistant | DX: M79.662 Pain in left lower leg (principal); M79.661 Pain in right lower leg; I89.0 Lymphedema, not elsewhere classified | CPT/HCPCS: 97140 ==

== ENCOUNTER 2025-07-08 14:00 | Outpatient (RCR) | payer MEDICARE, SELFPAY | END 2025-07-08 23:59 | disposition home or self-care (01) | LOC: PT 14:00 | PROVIDERS: PCP Family Medicine; Visit Provider Family Medicine | DX: M79.652 Pain in left thigh (principal) | CPT/HCPCS: 97110; 97530 ==

== ENCOUNTER 2025-07-13 14:00 | Outpatient (RCR) | payer MEDICARE, SELFPAY ==
--- NOTE | 2025-06-24 15:02 | HMH.RHREAS ---
Rehab Reassessment Rehab OP Re-assessment Start: 06/24/25 14:48 Freq: Status: Active Protocol: Document 06/24/25 14:48 FARZANA (Rec: 06/24/25 15:02 PHORNE [id number]) E-signed By Rubens Urena, PT Rehab Re-assessment Subjective Subjective Pt reports she continues to have tenderness to palpation in B lower legs and increased edema throughout B lower legs. She reports being able to put on shoes on her left foot now, but continues to have difficulty donning R shoe due to increased edema. Objective Objective Notes Circumferential measurements: R LE total is 152.2 cm which is +1.3 cm since IE LLE total is 151.2 cm which is +0.7 cm since IE Edema: Pt presents with 1+ pitting edema to B lower legs this date. Erythema: Pt with moderate erythema to B lower legs. TTP: 2/4 TTP to B lower leg in the [facility] area Assessment Progress Assessment No Progress Assessment Notes Pt has been present for 5 treatment sessions since her last reassessment. Pt has shown increase in overall edema based on circumferential measurements. She continues to have difficulty with dressing, particularly donning shoes. She continues to need skilled therapy to reduce edema in order to improve ADL 's and overall functional mobility to return pt to PLOF . Lymphedema Patient Goals Lymphedema Short in 4 wks pt will: (All goals remain active in order to Term Patient Goals improve ADL's, especially dressing, in order to return pt to PLOF) 1) Reduce TTP in B LE to 1/4 2) Reduce circumferential measurements to R LE by 3 cm Lymphedema [place] in 8 wks pt will: (All goals remain active in order to Patient Goals improve ADL's, especially dressing, in order to return pt to PLOF) 1) Reduce pitting edema to 0 in R LE 2) Reduce circumferential measurements to R LE by 6 cm 3) Be independent with donning/doffing of compression garments 4) be independent with Lymphedema management via HEP 5) Reduce pain in B LE to 4/10 at worst. Plan Plan Updated POC sent to provider for their continued input and approval. Continued pt treatment may include any or all of the following interventions in order to improve functional outcomes and aid pt improvement in QOL: Frequency of Therapy 2 x/wk Duration of Therapy 8 wks Therapeutic Exercise Yes Including Home Exercise Program Manual Therapy Yes Techniques Neuromuscular Re- Yes education Therapeutic Yes Activities to Return to Previous Functional/Work Level ADL/Self Care Yes Education Orthotics/Bracing/ Yes Splinting Vasopneumatic Yes Compression Pump Manual Lymphatic Yes Drainage Eval/Re-Eval Yes Time and Billing Re-Eval Time 15 Re-Eval Billing 0 Units Charge for PT No reassessment? PHYSICIAN CERTIFICATION: I certify the specified therapy services for Yesenia Venegas are required, authorized, and reviewed every 30 days.
== END 2025-07-13 23:59 | disposition home or self-care (01) ==
LOC: PT 14:00
PROVIDERS: PCP Family Medicine; Visit Provider Family Medicine
DX: M79.662 Pain in left lower leg (principal); M79.661 Pain in right lower leg; I89.0 Lymphedema, not elsewhere classified
CPT/HCPCS: 97140

== ENCOUNTER 2025-07-27 14:48 | Outpatient (CLI) | payer MEDICARE, SELFPAY ==
[2025-07-27 15:30] VITALS: PULSE 73; PULSE 74
[2025-07-27] MEDS: ALBUTEROL 0.083% 2.5 MG/3 ML NEB IH (15:30)
== END 2025-07-27 23:59 | disposition home or self-care (01) ==
LOC: RT 14:48
PROVIDERS: PCP Family Medicine; Visit Provider Internal Medicine Pulmonary Disease
DX: J44.9 Chronic obstructive pulmonary disease, unspecified (principal); R94.2 Abnormal results of pulmonary function studies
CPT/HCPCS: 94010; 94618; 94640

== ENCOUNTER 2025-08-04 12:38 | Outpatient (RCR) | payer MEDICARE, SELFPAY | END 2025-08-04 23:59 | disposition home or self-care (01) | LOC: PT 12:38 | PROVIDERS: PCP Family Medicine; Visit Provider Family Medicine | DX: M79.18 Myalgia, other site (principal) | CPT/HCPCS: 97110 ==

== ENCOUNTER 2025-08-04 13:00 | Outpatient (RCR) | payer MEDICARE, SELFPAY ==
--- NOTE | 2025-07-29 15:34 | HMH.RHREAS ---
Rehab Reassessment Rehab OP Re-assessment Start: 07/22/25 14:57 Freq: Status: Active Protocol: Document 07/29/25 15:25 [email or web address] (Rec: 07/29/25 15:34 PHORNE [id number]) E-signed By Rubens Urena, PT Rehab Re-assessment Subjective Subjective Patient reports L LE feels better than R. She continues to express difficulty with donning shoes, but does have histroy fo chronic back pain which limits some of her ADLs also. Objective Objective Notes Circumferential measurements: R LE total is 146.8 cm which is -4.1 cm since IE L LE total is 146.8 cm which is -3.7 cm since IE Edema: Pt presents with 1+ pitting edema to B lower legs this date. Erythema: Pt with mild erythema to B lower legs. TTP: 2/4 TTP to B lower leg in the [facility] area Assessment Assessment Notes Pt has been present for 6 treatment sessions since her last RA was performed. She has shown overall reduction in edema in B LE at this time and slightly less discomfort which does improve her ability to perform all ADLs. She continues to need skilled therapy to reduce edema in order to improve ADL's and overall functional mobility to return pt to PLOF. Goals adjusted this date as needed. Lymphedema Patient Goals Lymphedema Short in 2 wks pt will: (All goals remain active in order to Term Patient Goals improve ADL's, especially dressing, in order to return pt to PLOF) 1) Reduce TTP in B LE to 1/4 2) Reduce circumferential measurements to R LE by 5 cm Lymphedema [place] in 4 wks pt will: (All goals remain active in order to Patient Goals improve ADL's, especially dressing, in order to return pt to PLOF) 1) Reduce pitting edema to 0 in R LE 2) Reduce circumferential measurements to R LE by 6 cm 3) Be independent with donning/doffing of compression garments 4) be independent with Lymphedema management via HEP 5) Reduce pain in B LE to 4/10 at worst. Plan Plan Updated POC sent to provider for their continued input and approval. Continued pt treatment may include any or all of the following interventions in order to improve functional outcomes and aid pt improvement in QOL: Frequency of Therapy 1 x/wk Duration of Therapy 4 wks Therapeutic Exercise Yes Including Home Exercise Program Manual Therapy Yes Techniques Neuromuscular Re- Yes education Therapeutic Yes Activities to Return to Previous Functional/Work Level ADL/Self Care Yes Education Manual Lymphatic Yes Drainage Eval/Re-Eval Yes Time and Billing Re-Eval Time 17 Re-Eval Billing 0 Units Charge for PT No reassessment? PHYSICIAN CERTIFICATION: I certify the specified therapy services for Yesenia Venegas are required, authorized, and reviewed every 30 days.
== END 2025-08-04 23:59 | disposition home or self-care (01) ==
LOC: PT 13:00
PROVIDERS: PCP Family Medicine; Visit Provider Family Medicine
DX: M79.662 Pain in left lower leg (principal); I89.0 Lymphedema, not elsewhere classified
CPT/HCPCS: 97140